=== PATIENT | female | born 1955 | race Caucasian/White ===

== ENCOUNTER 2020-09-03 20:53 | Inpatient (IN) | payer MEDICARE, OTHER ==
[2020-09-03 22:29] LABS: Albumin 2.8 g/dL (3.5-5.0); Calcium 8.3 mg/dL (8.4-10.2); Potassium 4.3 mmol/L (3.5-5.1); Total Bilirubin 0.6 mg/dL (0.2-1.3); Total Protein 5.6 g/dL (6.3-8.2)
[2020-09-03 23:24] LABS: Anisocytosis Slight; HCT 42.7 % (34.0-46.0); HGB 11.5 gm/dL (11.4-16.0); Hypochromasia Marked; MCH 22.9 pg (25.0-35.0); MCV 84.8 fL (80.0-100.0); Mean Platelet Volume 7.4; Platelet Count 205 k/uL (150-450); Poikilocytosis Slight; RBC 5.03 m/uL (3.80-5.40); RDW 16.9 % (11.5-15.5)
[2020-09-03 23:25] LABS: Appearance,Urine Cloudy (Clear); Bacteria,Urine Rare /hpf; Bilirubin,Urine Negative (Negative); Blood,Urine Negative (Negative); Color,Urine Yellow; Glucose,Urine (UA) Negative (Negative); Hyaline Casts,Urine 23 /lpf (0-2); Ketones,Urine Negative (Negative); Leukocyte Esterase,Urine Small (Negative); Mucus,Urine Rare /hpf; Nitrite,Urine Negative (Negative); Protein,Urine 1+ (Negative); RBC,Urine 2 /hpf (0-5); Specific Gravity,Urine 1.012 (1.001-1.035); Squamous Epithelial Cell,Urine 1 /hpf (0-4); Urobilinogen,Urine <2.0 mg/dL (<2.0); WBC,Urine 11 /hpf (0-5)
[2020-09-03 23:59] LABS: Band Neutrophils % 2 %; Eosinophils # (M) 0.06 k/uL (0-0.7); Lymphocytes # (M) 0.99 k/uL (1.0-4.8); Monocytes # (M) 0.31 k/uL (0-1.0); Neutrophils % (M) 78 %; Nucleated Red Blood Cells 1 /100 WBC (0-0); Total Cells Counted 200; WBC 6.2 k/uL (3.8-10.6)
[2020-09-04 00:02] LABS: Polychromasia Present
[2020-09-04 00:03] LABS: Large Platelets Present
[2020-09-04] MEDS ORDERED: NALOXONE 0.4 MG/ML 1 ML VIAL IV PRN (00:39)
[2020-09-04] MEDS ORDERED: FUROSEMIDE 10 MG/ML 4 ML VIAL IV STA (00:43)
--- NOTE | 2020-09-04 00:44 | ED ---
General Adult HPI - General Chief complaint: Recheck/Abnormal Lab/Rx Stated complaint: ATIF Time Seen by Provider: 09/03/20 21:10 Source: patient, EMS Mode of arrival: EMS Limitations: no limitations - History of Present Illness Initial comments: 64 year-old female patient presents to the emergency department for evaluation of generalized swelling. States that it has been worsening over the last three weeks. States that her right leg is swollen, her abdomen, and her arms. States that she cannot fit into her clothes anymore. Denies any significant shortness of breath. States she has had this in the past and they drained off "150lbs" of fluid. Patient states she does take lasix. Also reports generalized weakness, states that she is having trouble getting around her home because the swelling is so bad. Reports normal urination. Denies any chest pain. Patient denies any recent rash, fever, chills, cough, abdominal pain, nausea, vomiting, diarrhea, constipation, back pain, numbness, tingling, dizziness, weakness, hematuria, dysuria, urinary urgency, urinary frequency, headache, visual changes, or any other complaints. - Related Data Home Medications Medication Instructions Recorded Confirmed Ferrous Sulfate [Feosol] 325 mg PO DAILY 08/27/16 09/03/20 Morphine Sulfate [Ms Contin] 30 mg PO DAILY 08/27/16 09/03/20 Oxybutynin Chloride 5 mg PO TID 08/27/16 09/03/20 Warfarin [Coumadin] 2 mg PO HS 08/27/16 09/03/20 Albuterol Inhaler [Ventolin Hfa 1 puff INHALATION RT-Q4H PRN 09/03/20 09/03/20 Inhaler] Ammonium Lactate Cream [Lac-Hydrin 1 applic TOPICAL BID 09/03/20 09/03/20 12% Cream] Atorvastatin [Lipitor] 10 mg PO HS 09/03/20 09/03/20 Furosemide [Lasix] 40 mg PO DAILY 09/03/20 09/03/20 Insulin Aspart [NovoLOG Flexpen] 20 - 30 units SQ AC-TID 09/03/20 09/03/20 Insulin Detemir [Levemir Flextouch] 30 units SQ HS 09/03/20 09/03/20 Morphine Sulfate 15 mg PO HS 09/03/20 09/03/20 Nystatin 100,000Unit/gm Cream 1 applic TOPICAL BID 09/03/20 09/03/20 [Mycostatin Cream] Pantoprazole Sodium [Protonix] 40 mg PO DAILY 09/03/20 09/03/20 Triamcinolone 0.1% Cream [Kenalog 1 applicatio TOPICAL BID 09/03/20 09/03/20 0.1% Cream] Allergies Allergy/AdvReac Type Severity Reaction Status Date / Time cephalexin [From Keflex] Allergy Rash/Hives Verified 09/03/20 22:31 ciprofloxacin [From Cipro] Allergy Unknown Verified 09/03/20 22:31 Review of Systems ROS Statement: Those systems with pertinent positive or pertinent negative responses have been documented in the HPI. ROS Other: All systems not noted in ROS Statement are negative. 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, BLEEDING POLPS RESULTING IN ILEOSTOMY History of Any Multi-Drug Resistant Organisms: MRSA Date of last positivie culture/infection: 08/27/16 MDRO Source:: Coccyx Past Surgical History: Bowel Resection Additional Past Surgical History / Comment(s): 2010 AKA left, ileostomy 1967 Past Anesthesia/Blood Transfusion Reactions: No Reported Reaction Past Psychological History: No Psychological Hx Reported Smoking Status: Current every day smoker - Past Family History Mother Additional Family Medical History / Comment(s): ENLARGED HEART Father Family Medical History: Hypertension General Exam Limitations: no limitations General appearance: alert, in no apparent distress ENT exam: Present: normal exam, normal oropharynx, mucous membranes moist Respiratory exam: Present: normal lung sounds bilaterally. Absent: respiratory distress, wheezes, rales, rhonchi, stridor Cardiovascular Exam: Present: regular rate, normal rhythm, normal heart sounds. Absent: systolic murmur, diastolic murmur, rubs, gallop, clicks GI/Abdominal exam: Present: soft, normal bowel sounds. Absent: distended, tenderness, guarding, rebound, rigid Extremities exam: Present: normal inspection, full ROM, normal capillary refill, other (Absent left leg. Right leg swelling, thickened skin over the lower leg.). Absent: tenderness, pedal edema, joint swelling, calf tenderness Neurological exam: Present: alert, oriented X3, CN II-XII intact Psychiatric exam: Present: normal affect, normal mood Skin exam: Present: warm, dry, intact, normal color. Absent: rash Course Vital Signs 09/03/20 09/03/20 09/03/20 20:59 22:32 22:48 Temperature 98.1 F Pulse Rate 88 79 Respiratory 18 18 18 Rate Blood Pressure 111/61 97/62 O2 Sat by Pulse 88 L 99 Oximetry 09/03/20 23:09 Temperature Pulse Rate 80 Respiratory 18 Rate Blood Pressure 119/66 O2 Sat by Pulse 99 Oximetry EKG Findings - EKG Comments: EKG Findings:: EKG obtained at 0 shows normal sinus rhythm with right bundle branch block. Ventricular rate is 84, W[place] interval 198, QRS duration 152, QT 416, QTC 491. No evidence of ST elevation or depression. Medical Decision Making - Medical Decision Making 64 year-old year old female patient presents to the emergency department for evaluation of generalized swelling, difficulty with mobility due to the swelling. Denies significant shortness of breath. Physical examination does reveal non pitting edema. Lungs are clear. She did initially have low oxygen saturation. Labs reviewed and showed decreased renal function, patient states she has had this in the past. She will be admitted to the hospital for IV lasix and for evaluation for possible CHF. She is agreeable to this plan. Case discussed with my attending Dr. Whatley. - Lab Data Result diagrams: 09/03/20 22:07 09/03/20 22:07 Lab Results 09/03/20 09/03/20 09/03/20 Range/Units 22:07 22:07 22:07 WBC 6.2 (3.8-10.6) k/uL RBC 5.03 (3.80-5.40) m/uL Hgb 11.5 (11.4-16.0) gm/dL Hct 42.7 (34.0-46.0) % MCV 84.8 (80.0-100.0) fL MCH 22.9 L (25.0-35.0) pg MCHC 27.0 L (31.0-37.0) g/dL RDW 16.9 H (11.5-15.5) % Plt Count 205 (150-450) k/uL MPV 7.4 Neutrophils % Not Reportable Neutrophils % (Manual) 78 % Band Neuts % (Manual) 2 % Lymphocytes % Not Reportable Lymphocytes % (Manual) 16 % Monocytes % Not Reportable Monocytes % (Manual) 5 % Eosinophils % Not Reportable Eosinophils % (Manual) 1 % Basophils % Not Reportable Neutrophils # Not Reportable Neutrophils # (Manual) 4.90 (1.3-7.7) k/uL Lymphocytes # Not Reportable Lymphocytes # (Manual) 0.99 L (1.0-4.8) k/uL Monocytes # Not Reportable Monocytes # (Manual) 0.31 (0-1.0) k/uL Eosinophils # Not Reportable Eosinophils # (Manual) 0.06 (0-0.7) k/uL Basophils # Not Reportable Nucleated RBCs 1 H (0-0) /100 WBC Manual Slide Review Performed Large Platelets Present Polychromasia Present Hypochromasia Marked Poikilocytosis Slight Anisocytosis Slight Sodium 134 L (137-145) mmol/L Potassium 4.3 (3.5-5.1) mmol/L Chloride 103 (98-107) mmol/L Carbon Dioxide 23 (22-30) mmol/L Anion Gap 8 mmol/L BUN 22 H (7-17) mg/dL Creatinine 2.23 H (0.52-1.04) mg/dL Est GFR (CKD-EPI)AfAm 26 (>60 ml/min/1.73 sqM) Est GFR (CKD-EPI)NonAf 23 (>60 ml/min/1.73 sqM) Glucose 109 H (74-99) mg/dL Calcium 8.3 L (8.4-10.2) mg/dL Total Bilirubin 0.6 (0.2-1.3) mg/dL AST 37 H (14-36) U/L ALT 13 (4-34) U/L Alkaline Phosphatase 104 (38-126) U/L NT-Pro-B Natriuret Pep pg/mL Total Protein 5.6 L (6.3-8.2) g/dL Albumin 2.8 L (3.5-5.0) g/dL Urine Color Yellow Urine Appearance Cloudy H (Clear) Urine pH 5.0 (5.0-8.0) Ur Specific [place] 1.012 (1.001-1.035) Urine Protein 1+ H (Negative) Urine Glucose (UA) Negative (Negative) Urine Ketones Negative (Negative) Urine Blood Negative (Negative) Urine Nitrite Negative (Negative) Urine Bilirubin Negative (Negative) Urine Urobilinogen <2.0 (<2.0) mg/dL Ur Leukocyte Esterase Small H (Negative) Urine RBC 2 (0-5) /hpf Urine WBC 11 H (0-5) /hpf Ur Squamous Epith Cells 1 (0-4) /hpf Urine Bacteria Rare H (None) /hpf Hyaline Casts 23 H (0-2) /lpf Urine Mucus Rare H (None) /hpf 09/03/20 Range/Units 22:07 WBC (3.8-10.6) k/uL RBC (3.80-5.40) m/uL Hgb (11.4-16.0) gm/dL Hct (34.0-46.0) % MCV (80.0-100.0) fL MCH (25.0-35.0) pg MCHC (31.0-37.0) g/dL RDW (11.5-15.5) % Plt Count (150-450) k/uL MPV Neutrophils % Neutrophils % (Manual) % Band Neuts % (Manual) % Lymphocytes % Lymphocytes % (Manual) % Monocytes % Monocytes % (Manual) % Eosinophils % Eosinophils % (Manual) % Basophils % Neutrophils # Neutrophils # (Manual) (1.3-7.7) k/uL Lymphocytes # Lymphocytes # (Manual) (1.0-4.8) k/uL Monocytes # Monocytes # (Manual) (0-1.0) k/uL Eosinophils # Eosinophils # (Manual) (0-0.7) k/uL Basophils # Nucleated RBCs (0-0) /100 WBC Manual Slide Review Large Platelets Polychromasia Hypochromasia Poikilocytosis Anisocytosis Sodium (137-145) mmol/L Potassium (3.5-5.1) mmol/L Chloride (98-107) mmol/L Carbon Dioxide (22-30) mmol/L Anion Gap mmol/L BUN (7-17) mg/dL Creatinine (0.52-1.04) mg/dL Est GFR (CKD-EPI)AfAm (>60 ml/min/1.73 sqM) Est GFR (CKD-EPI)NonAf (>60 ml/min/1.73 sqM) Glucose (74-99) mg/dL Calcium (8.4-10.2) mg/dL Total Bilirubin (0.2-1.3) mg/dL AST (14-36) U/L ALT (4-34) U/L Alkaline Phosphatase (38-126) U/L NT-Pro-B Natriuret Pep 3650 pg/mL Total Protein (6.3-8.2) g/dL Albumin (3.5-5.0) g/dL Urine Color Urine Appearance (Clear) Urine pH (5.0-8.0) Ur Specific [place] (1.001-1.035) Urine Protein (Negative) Urine Glucose (UA) (Negative) Urine Ketones (Negative) Urine Blood (Negative) Urine Nitrite (Negative) Urine Bilirubin (Negative) Urine Urobilinogen (<2.0) mg/dL Ur Leukocyte Esterase (Negative) Urine RBC (0-5) /hpf Urine WBC (0-5) /hpf Ur Squamous Epith Cells (0-4) /hpf Urine Bacteria (None) /hpf Hyaline Casts (0-2) /lpf Urine Mucus (None) /hpf Disposition Clinical Impression: Generalized edema, Weakness Disposition: ADMITTED IP TO THIS [facility] Condition: Serious Referrals: Tariq Tang MD [Primary Care Provider] - 1-2 days Decision to Admit Reason: Admit from EC Decision Date: 09/04/20 Decision Time: 00:46
--- NOTE | 2020-09-04 01:53 | XR ---
EXAM: XR Chest, 1 View CLINICAL HISTORY: ITS.REASON XR Reason: low O2 sat; swelling TECHNIQUE: Frontal view of the chest. COMPARISON: No relevant prior studies available. FINDINGS: Lungs: Bilateral lung opacities. Pleural space: Trace pleural effusions not excluded. Heart: Enlarged cardiomediastinal silhouette. Mediastinum: See above. Bones/joints: Degenerative changes. IMPRESSION: 1. Bilateral lung opacities. Correlate clinically regarding infection or edema. 2. Enlarged cardiomediastinal silhouette.
[2020-09-04] MEDS ORDERED: ALBUTEROL NEBULIZED 2.5 MG/3 ML INHALATION PRN (06:31)
[2020-09-04 06:48] LABS: Glucose,Whole Blood 120 mg/dL (75-99)
[2020-09-04 08:50] LABS: INR 6.3 (<1.2)
[2020-09-04] MEDS: INSULIN ASPART (NovoLOG) 100 UNIT/ML VIAL SQ SCH ×4 (08:52→21:21)
[2020-09-04] MEDS ORDERED: FUROSEMIDE 10 MG/ML 4 ML VIAL IV SCH (09:00)
[2020-09-04] MEDS ORDERED: FUROSEMIDE 40 MG TAB PO SCH (09:00)
[2020-09-04] MEDS: TRIAMCINOLONE 0.1% CREAM 80 GM TUBE TOPICAL SCH ×2 (09:03→21:41)
[2020-09-04] MEDS: OXYBUTYNIN CHLORIDE 5 MG TAB PO SCH ×3 (09:04→21:20)
[2020-09-04] MEDS: NYSTATIN 100,000UNIT/GM CREAM 30 GM TUBE TOPICAL SCH ×2 (09:04→21:41)
[2020-09-04] MEDS: AMMONIUM LACTATE 12% CREAM 140 GM TUBE TOPICAL SCH ×2 (09:04→21:41)
[2020-09-04] MEDS: MORPHINE SULFATE ER 30 MG TABLET PO SCH (09:04)
[2020-09-04] MEDS: FERROUS SULFATE 325 MG TAB PO SCH (09:05)
[2020-09-04] MEDS: PANTOPRAZOLE 40 MG TABLET PO SCH (09:05)
[2020-09-04 11:39] LABS: Glucose,Whole Blood 234 mg/dL (75-99)
--- NOTE | 2020-09-04 14:28 | P.CRDCN ---
History of Present Illness History of present illness: HISTORY OF PRESENTING ILLNESS This is a pleasant 64-year-old female past medical history significant for Congestive Heart Failure, Type 2 Diabetes, COPD, Dyslipidemia, obstructive sleep apnea, chronic kidney disease, DVT (on coumadin). She currently does not follow with a currency counter. She used to follow with a currency counter, she states "years ago". We have been asked to see in consultation for congestive heart failure. Patient is seen and examined sitting up in bed. No acute distress. She states over the past 3 weeks she has been having increased generalized edema and some mild shortness of breath. States that she cannot fit into her clothes anymore. Associated symptoms include some mild shortness of breath. No recent echocardiogram. She states she has been at hospitals prior diagnosed with heart failure and renal failure. She states she has even been on emergent dialysis 2 times in the hospital. She does not remember having a cardiac catheterization. She states she also has been told she had an irregular rhythm before. She is a former smoker. She has history of non-compliance. She states she was recently at [facility]. Patient is not on telemetry to review. EKG reveals sinus rhythm, heart rate 84, right bundle-branch block. No prior EKG to compare Chest xray Bilateral lung opacities, enlarged cardiomediastinal silhouette. Current home cardiac medications include Coumadin 2 mg nightly, Lasix 40 mg daily, atorvastatin 10 mg nightly, potassium chloride 40 mEq daily. Patient was admitted and started On Lasix drip, statin, and her coumadin. She denies chest pain, palpitations, cough, abdominal pain, nausea, vomiting, dizziness, weakness, or lightheadedness. Denies orthopnea or PND. REVIEW OF SYSTEMS At the time of my exam: CONSTITUTIONAL: Denies fever or chills. CARDIOVASCULAR: +LE edema, Denies chest pain, shortness of breath, orthopnea, PND or palpitations. RESPIRATORY: Denies cough. GASTROINTESTINAL: Denies abdominal pain, diarrhea, constipation, nausea or vomiting. MUSCULOSKELETAL: Denies myalgias. NEUROLOGIC: Denies numbness, tingling, headacbe or weakness. ENDOCRINE: Denies fatigue, weight change, polydipsia or polyurina. GENITOURINARY: Denies burning, hematuria or urgency with micturation. HEMATOLOGIC: Denies history of anemia or bleeding. PHYSICAL EXAMINATION CONSTITUTIONAL: No apparent distress. HEENT: Head is normocephalic. Pupils are equal, round. Sclerae anicteric. Mucous membranes of the mouth are moist. Difficult to assess JVD. No carotid bruit. CHEST EXAMINATION: Lungs are diminished bases to auscultation. No chest wall tenderness is noted on palpation or with deep breathing. HEART EXAMINATION: Regular rate and rhythm. S1, S2 heard. No murmurs, gallops or rub. ABDOMEN: Soft, nontender. Positive bowel sounds. EXTREMITIES: Bilateral edema in upper and lower extremities, non-pitting SKIN: Lower extremity bilaterally redness NEUROLOGIC EXAMINATION: Patient is awake, alert and oriented x3. ASSESSMENT Acute on Chronic Heart Failure- Unspecified diastolic or systolic with no recent echocardiogram to review Type 2 Diabetes Acute on Chronic Kidney Disease- Patient has had history of being put on dialysis 2 times at outside hospitals Obstructive sleep Apnea DVT - on coumadin COPD Dyslipidemia PLAN -Will obtain old records from [facility] -Will Obtain 2D echocardiogram -Monitor patient on telemetry -Recommend Nephrology consult for acute on chronic kidney disease and IV diuresis recommendations -IV diuresis ordered per primary -Continue statin and coumadin -Heart Healthy Diet, I/Os, Daily Weights -Further recommendations to follow Nurse Practitioner note has been reviewed, I agree with a documented findings and plan of care. Patient was seen and examined. 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, BLEEDING POLPS RESULTING IN ILEOSTOMY History of Any Multi-Drug Resistant Organisms: MRSA Date of last positivie culture/infection: 08/27/16 MDRO Source:: Coccyx Past Surgical History: Bowel Resection Additional Past Surgical History / Comment(s): 2010 AKA left, ileostomy 1967 Past Anesthesia/Blood Transfusion Reactions: No Reported Reaction Past Psychological History: No Psychological Hx Reported Smoking Status: Current every day smoker Past Alcohol Use History: None Reported Past Drug Use History: None Reported - Past Family History Mother Additional Family Medical History / Comment(s): ENLARGED HEART Father Family Medical History: Hypertension Medications and Allergies Home Medications Medication Instructions Recorded Confirmed Type Ferrous Sulfate [Feosol] 325 mg PO DAILY 08/27/16 09/03/20 History Morphine Sulfate [Ms Contin] 30 mg PO DAILY 08/27/16 09/03/20 History Oxybutynin Chloride 5 mg PO TID 08/27/16 09/03/20 History Warfarin [Coumadin] 2 mg PO HS 08/27/16 09/03/20 History Albuterol Inhaler [Ventolin Hfa 1 puff INHALATION RT-Q4H PRN 09/03/20 09/03/20 History Inhaler] Ammonium Lactate Cream [Lac-Hydrin 1 applic TOPICAL BID 09/03/20 09/03/20 History 12% Cream] Atorvastatin [Lipitor] 10 mg PO HS 09/03/20 09/03/20 History Furosemide [Lasix] 40 mg PO DAILY 09/03/20 09/03/20 History Insulin Aspart [NovoLOG Flexpen] 20 - 30 units SQ AC-TID 09/03/20 09/03/20 History Insulin Detemir [Levemir Flextouch] 30 units SQ HS 09/03/20 09/03/20 History Morphine Sulfate 15 mg PO HS 09/03/20 09/03/20 History Nystatin 100,000Unit/gm Cream 1 applic TOPICAL BID 09/03/20 09/03/20 History [Mycostatin Cream] Pantoprazole Sodium [Protonix] 40 mg PO DAILY 09/03/20 09/03/20 History Triamcinolone 0.1% Cream [Kenalog 1 applicatio TOPICAL BID 09/03/20 09/03/20 History 0.1% Cream] Cyclobenzaprine [Flexeril] 10 mg PO TID PRN 09/04/20 09/04/20 History HYDROcodone/APAP 10-325MG [[place] 1 tab PO Q4HR PRN 09/04/20 09/04/20 History 10-325] Potassium Chloride [Klor-Con 20] 40 meq PO DAILY 09/04/20 09/04/20 History Allergies Allergy/AdvReac Type Severity Reaction Status Date / Time cephalexin [From Keflex] Allergy Rash/Hives Verified 09/03/20 22:31 ciprofloxacin [From Cipro] Allergy Unknown Verified 09/03/20 22:31 Physical Exam Vitals: Vital Signs Temp Pulse Pulse Resp BP BP Pulse Ox 09/04/20 13:53 97.5 F L 82 18 89/57 92 L 09/04/20 13:22 79 92/56 09/04/20 09:06 80 18 09/04/20 07:28 97.6 F 80 18 90/60 96 09/04/20 04:32 82 15 09/04/20 04:31 97.7 F 82 15 102/70 90 L 09/03/20 23:09 80 18 119/66 99 09/03/20 22:48 18 09/03/20 22:32 79 18 97/62 99 09/03/20 20:59 98.1 F 88 18 111/61 88 L Intake and Output 09/03/20 09/04/20 09/04/20 22:59 06:59 14:59 Output Total 150 100 Balance -150 -100 Output: Urine 150 Stool 100 Other: Weight 138.799 kg 136 kg Results 09/03/20 22:07 09/03/20 22:07 Cardiac Enzymes 09/03/20 Range/Units 22:07 AST 37 H (14-36) U/L Coagulation 09/04/20 Range/Units 07:43 PT 61.0 H (9.0-12.0) sec CBC 09/03/20 Range/Units 22:07 WBC 6.2 (3.8-10.6) k/uL RBC 5.03 (3.80-5.40) m/uL Hgb 11.5 (11.4-16.0) gm/dL Hct 42.7 (34.0-46.0) % Plt Count 205 (150-450) k/uL Comprehensive Metabolic Panel 09/03/20 Range/Units 22:07 Sodium 134 L (137-145) mmol/L Potassium 4.3 (3.5-5.1) mmol/L Chloride 103 (98-107) mmol/L Carbon Dioxide 23 (22-30) mmol/L BUN 22 H (7-17) mg/dL Creatinine 2.23 H (0.52-1.04) mg/dL Glucose 109 H (74-99) mg/dL Calcium 8.3 L (8.4-10.2) mg/dL AST 37 H (14-36) U/L ALT 13 (4-34) U/L Alkaline Phosphatase 104 (38-126) U/L Total Protein 5.6 L (6.3-8.2) g/dL Albumin 2.8 L (3.5-5.0) g/dL Current Medications Generic Name Dose Route Start Last Admin Trade Name Freq PRN Reason Stop Dose Admin Albuterol Sulfate 2.5 mg 09/04/20 06:31 Albuterol Nebulized 2.5 Mg/3 Ml INHALATION RT-Q4H PRN Shortness Of Breath Albuterol/Ipratropium 3 ml 09/04/20 16:00 Ipratropium-Albuterol 3 Ml Neb INHALATION RT-QID [facility] Atorvastatin Calcium 10 mg 09/04/20 21:00 Atorvastatin 10 Mg Tab PO HS LAWSON Budesonide 1 mg 09/04/20 12:15 Budesonide 1 Mg/2 Ml Nebu INHALATION RT-BID [facility] Ferrous Sulfate 325 mg 09/04/20 09:00 09/04/20 09:05 Ferrous Sulfate 325 Mg Tab PO 325 mg DAILY [facility] Administration Formoterol Fumarate 20 mcg 09/04/20 12:15 Formoterol Fumarate 20 Mcg/2 Ml Nebu INHALATION RT-BID [facility] Furosemide 100 mg/ Sodium 100 mls @ 10 mls/hr 09/04/20 12:30 Chloride IV .Q10H [facility] 10 MG/HR Insulin Aspart 0 unit 09/04/20 07:30 09/04/20 11:50 Insulin Aspart (Novolog) 100 Unit/Ml Vial SQ 5 unit ACHS [facility] Administration Protocol Insulin Detemir 30 unit 09/04/20 21:00 Insulin Detemir (Levemir) 100 Unit/Ml Syr SQ HS [facility] Lactic Acid 1 applic 09/04/20 09:00 09/04/20 09:04 Ammonium Lactate 12% Cream 140 Gm Tube TOPICAL 1 applic BID [facility] Administration Miscellaneous Information 0 each 09/04/20 06:56 Warfarin Per Pharmacy MISCELLANE DIRECTED PRN INR Morphine Sulfate 15 mg 09/04/20 21:00 Morphine Sulfate Ir 15 Mg Tablet PO HS [facility] Morphine Sulfate 30 mg 09/04/20 09:00 09/04/20 09:04 Morphine Sulfate Er 30 Mg Tablet PO 30 mg DAILY [facility] Administration Protocol Naloxone HCl 0.2 mg 09/04/20 00:39 Naloxone 0.4 Mg/Ml 1 Ml Vial IV Q2M PRN Opioid Reversal Nystatin 1 applic 09/04/20 09:00 09/04/20 09:04 Nystatin 100,000unit/Gm Cream 30 Gm Tube TOPICAL 1 applic BID [facility] Administration Oxybutynin Chloride 5 mg 09/04/20 09:00 09/04/20 09:04 Oxybutynin Chloride 5 Mg Tab PO 5 mg TID [facility] Administration Pantoprazole Sodium 40 mg 09/04/20 09:00 09/04/20 09:05 Pantoprazole 40 Mg Tablet PO 40 mg DAILY [facility] Administration Triamcinolone Acetonide 1 applic 09/04/20 09:00 09/04/20 09:03 Triamcinolone 0.1% Cream 80 Gm Tube TOPICAL 1 applic BID [facility] Administration Warfarin Sodium 0 mg 09/04/20 18:00 Warfarin 0.5 Mg Tab PO 09/04/20 18:01 ONCE ONE Intake and Output 09/03/20 09/04/20 09/04/20 22:59 06:59 14:59 Output Total 150 100 Balance -150 -100 Output: Urine 150 Stool 100 Other: Weight 138.799 kg 136 kg 09/03/20 22:07 09/03/20 22:07
[2020-09-04] MEDS: FUROSEMIDE 100 MG in SODIUM CHLORIDE 0.9% 90 ML IV SCH (14:33)
[2020-09-04] MEDS: FORMOTEROL FUMARATE 20 MCG/2 ML NEBU INHALATION SCH ×2 (15:15→19:25)
[2020-09-04] MEDS: BUDESONIDE 1 MG/2 ML NEBU INHALATION SCH ×2 (15:15→19:25)
[2020-09-04] MEDS: IPRATROPIUM-ALBUTEROL 3 ML NEB INHALATION SCH ×2 (15:32→19:25)
[2020-09-04 16:29] LABS: Glucose,Whole Blood 107 mg/dL (75-99)
[2020-09-04] MEDS ORDERED: WARFARIN 0.5 MG TAB PO ONE (18:00)
--- NOTE | 2020-09-04 20:51 | P.HPIM ---
History of Present Illness H&P Date: 09/04/20 Chief Complaint: Retaining water History of presenting complaint: This is a pleasant 63-year-old patient follows Dr. Tang. 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 Patient long-standing smoker. Patient presents with increasing swelling in the abdomen lower extremity. He has she has been short of breath. Also wheezing. Mild cough. Decrease appetite. Tired rundown. 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 Does use a wheelchair. smoking a pack a day for over 50 years. No alcohol. Physical examination: VITAL SIGNS: 98.1, 88, 18, 111/61, 88% on room air GENERAL: BMI 51.4, reclining in bed, short of breath. EYES: Pupils equal. Conjunctiva normal. HEENT: External appearance of nose and ears normal, oral cavity grossly normal. NECK: Short and thick, JVD unable to evaluate masses not palpable. HEART: First and second heart sounds are normal; edema present. LUNGS: Respiratory rate increased, accessory muscle working, not able to speak in full sentences, brisk breath sound along expiration wheezing. ABDOMEN: Soft, nontender, liver spleen not palpable, no masses palpable. PSYCH: [Alert and oriented x3; mood and affect anxious EXTREMITIES: Left above-knee amputation. NEUROLOGICAL: Cranial nerves grossly intact; no facial asymmetry, power and se nsation grossly intact. LYMPHATICS: No lymph nodes palpable in the axilla and neck INVESTIGATIONS, reviewed in the clinical context: WBC 6.2 hemoglobin 11.5 platelets 205 INR 6.3 potassium 4.3 bun 22 creatinine 2.23 Coronavirus [PCF]-not detected EKG tracing personally reviewed by me-normal sinus rhythm, right bundle branch block, some T-wave changes Chest x-ray film personally reviewed by me-infiltrates and venous prominence Assessment and plan: -Acute congestive heart failure exacerbation, EF not known Patient started on Lasix drip. Strict I's and O's. Follow electrolytes. 2-D echo ordered -Possible pneumonia, suspect gram-negative organism Start IV ceftriaxone -Acute COPD exacerbation in a current smoker *DuoNeb, inhaled bronchodilators, inhaled long-acting beta agonist, IV Solu- Medrol -Chronic DVT, chronically on Coumadin Follow INR as per pharmacy -Coumadin toxicity with no bleeding All Coumadin for now and follow with pharmacy to dose -Hyperlipidemia Continue Lipitor -Primary osteoarthritis Use pain control as needed -Chronic pain Continue with MS Contin Patient started on bronchodilators, steroids, IV ceftriaxone, oxygen supplementation. Care was discussed with the patient. Strict I's and O's. 2-D echocardiogram. IV Lasix. Drip. Given the complexity and severity of patient's condition expect the patient to be in the hospital at least for 2 overnights Smoke cessation counseling: This was done with the patient. Nicotine patch is being given. More than 3 minutes was spent for this 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, BLEEDING POLPS RESULTING IN ILEOSTOMY History of Any Multi-Drug Resistant Organisms: MRSA Date of last positivie culture/infection: 08/27/16 MDRO Source:: Coccyx Past Surgical History: Bowel Resection Additional Past Surgical History / Comment(s): 2010 AKA left, ileostomy 1966 Past Anesthesia/Blood Transfusion Reactions: No Reported Reaction Past Psychological History: No Psychological Hx Reported Smoking Status: Current every day smoker Past Alcohol Use History: None Reported Past Drug Use History: None Reported - Past Family History Mother Additional Family Medical History / Comment(s): ENLARGED HEART Father Family Medical History: Hypertension Medications and Allergies Home Medications Medication Instructions Recorded Confirmed Type Ferrous Sulfate [Feosol] 325 mg PO DAILY 08/27/16 09/03/20 History Morphine Sulfate [Ms Contin] 30 mg PO DAILY 08/27/16 09/03/20 History Oxybutynin Chloride 5 mg PO TID 08/27/16 09/03/20 History Warfarin [Coumadin] 2 mg PO HS 08/27/16 09/03/20 History Albuterol Inhaler [Ventolin Hfa 1 puff INHALATION RT-Q4H PRN 09/03/20 09/03/20 History Inhaler] Ammonium Lactate Cream [Lac-Hydrin 1 applic TOPICAL BID 09/03/20 09/03/20 History 12% Cream] Atorvastatin [Lipitor] 10 mg PO HS 09/03/20 09/03/20 History Furosemide [Lasix] 40 mg PO DAILY 09/03/20 09/03/20 History Insulin Aspart [NovoLOG Flexpen] 20 - 30 units SQ AC-TID 09/03/20 09/03/20 History Insulin Detemir [Levemir Flextouch] 30 units SQ HS 09/03/20 09/03/20 History Morphine Sulfate 15 mg PO HS 09/03/20 09/03/20 History Nystatin 100,000Unit/gm Cream 1 applic TOPICAL BID 09/03/20 09/03/20 History [Mycostatin Cream] Pantoprazole Sodium [Protonix] 40 mg PO DAILY 09/03/20 09/03/20 History Triamcinolone 0.1% Cream [Kenalog 1 applicatio TOPICAL BID 09/03/20 09/03/20 History 0.1% Cream] Cyclobenzaprine [Flexeril] 10 mg PO TID PRN 09/04/20 09/04/20 History HYDROcodone/APAP 10-325MG [[place] 1 tab PO Q4HR PRN 09/04/20 09/04/20 History 10-325] Potassium Chloride [Klor-Con 20] 40 meq PO DAILY 09/04/20 09/04/20 History Allergies Allergy/AdvReac Type Severity Reaction Status Date / Time cephalexin [From Keflex] Allergy Rash/Hives Verified 09/03/20 22:31 ciprofloxacin [From Cipro] Allergy Unknown Verified 09/03/20 22:31 Physical Exam Vitals: Vital Signs Temp Pulse Pulse Resp BP BP Pulse Ox 09/04/20 09:06 80 18 09/04/20 07:28 97.6 F 80 18 90/60 96 09/04/20 04:32 82 15 09/04/20 04:31 97.7 F 82 15 102/70 90 L 09/03/20 23:09 80 18 119/66 99 09/03/20 22:48 18 09/03/20 22:32 79 18 97/62 99 09/03/20 20:59 98.1 F 88 18 111/61 88 L Intake and Output 09/03/20 09/04/20 09/04/20 22:59 06:59 14:59 Output Total 150 Balance -150 Output: Urine 150 Other: Weight 138.799 kg 136 kg Results CBC & Chem 7: 09/03/20 22:07 09/03/20 22:07 Labs: Abnormal Lab Results - Last 24 Hours (Table) 09/03/20 09/03/20 09/03/20 Range/Units 22:07 22:07 22:07 MCH 22.9 L (25.0-35.0) pg MCHC 27.0 L (31.0-37.0) g/dL RDW 16.9 H (11.5-15.5) % Lymphocytes # (Manual) 0.99 L (1.0-4.8) k/uL Nucleated RBCs 1 H (0-0) /100 WBC PT (9.0-12.0) sec INR (<1.2) Sodium 134 L (137-145) mmol/L BUN 22 H (7-17) mg/dL Creatinine 2.23 H (0.52-1.04) mg/dL Glucose 109 H (74-99) mg/dL POC Glucose (mg/dL) (75-99) mg/dL Calcium 8.3 L (8.4-10.2) mg/dL AST 37 H (14-36) U/L Total Protein 5.6 L (6.3-8.2) g/dL Albumin 2.8 L (3.5-5.0) g/dL Urine Appearance Cloudy H (Clear) Urine Protein 1+ H (Negative) Ur Leukocyte Esterase Small H (Negative) Urine WBC 11 H (0-5) /hpf Urine Bacteria Rare H (None) /hpf Hyaline Casts 23 H (0-2) /lpf Urine Mucus Rare H (None) /hpf 09/04/20 09/04/20 Range/Units 06:46 07:43 MCH (25.0-35.0) pg MCHC (31.0-37.0) g/dL RDW (11.5-15.5) % Lymphocytes # (Manual) (1.0-4.8) k/uL Nucleated RBCs (0-0) /100 WBC PT 61.0 H (9.0-12.0) sec INR 6.3 H* (<1.2) Sodium (137-145) mmol/L BUN (7-17) mg/dL Creatinine (0.52-1.04) mg/dL Glucose (74-99) mg/dL POC Glucose (mg/dL) 120 H (75-99) mg/dL Calcium (8.4-10.2) mg/dL AST (14-36) U/L Total Protein (6.3-8.2) g/dL Albumin (3.5-5.0) g/dL Urine Appearance (Clear) Urine Protein (Negative) Ur Leukocyte Esterase (Negative) Urine WBC (0-5) /hpf Urine Bacteria (None) /hpf Hyaline Casts (0-2) /lpf Urine Mucus (None) /hpf Microbiology - Last 24 Hours (Table) 09/03/20 22:07 Urine Culture - Preliminary Urine,Voided Thrombosis Risk Factor Assmnt - Choose All That Apply Any of the Below Risk Factors Present?: Yes Each Factor Represents 1 point: Abnormal pulmonary function (COPD) Other Risk Factors: Yes Each Risk Factor Represents 2 Points: Age 61-74 years Each Risk Factor Represents 3 Points: History of DVT/PE Thrombosis Risk Factor Assessment Total Risk Factor Score: 6 Thrombosis Risk Factor Assessment Level: High Risk
[2020-09-04 20:56] LABS: Glucose,Whole Blood 127 mg/dL (75-99)
[2020-09-04] MEDS ORDERED: WARFARIN 2 MG TAB PO SCH (21:00)
[2020-09-04] MEDS: methylPREDNISolone SOD SUCCI 40 MG/ML 1 ML VIAL IV SCH (21:20)
[2020-09-04] MEDS: ATORVASTATIN 10 MG TAB PO SCH (21:20)
[2020-09-04] MEDS: MORPHINE SULFATE IR 15 MG TABLET PO SCH (21:20)
[2020-09-04] MEDS: INSULIN DETEMIR (LEVEMIR) 100 UNIT/ML SYR SQ SCH (21:21)
[2020-09-05] MEDS: methylPREDNISolone SOD SUCCI 40 MG/ML 1 ML VIAL IV SCH ×4 (00:07→23:47)
[2020-09-05] MEDS: FUROSEMIDE 100 MG in SODIUM CHLORIDE 0.9% 90 ML IV SCH ×3 (00:07→17:41)
[2020-09-05 06:31] LABS: Prothrombin Time 57.7 sec (9.0-12.0)
[2020-09-05 07:09] LABS: African American GFR (CKD) 34 (>60 ml/min/1.73 sqM); Anion Gap 7 mmol/L; Blood Urea Nitrogen 23 mg/dL (7-17); Calcium 7.8 mg/dL (8.4-10.2); Carbon Dioxide 23 mmol/L (22-30); Chloride 105 mmol/L (98-107); Glucose 195 mg/dL (74-99); Non-African American GFR(CKD) 29 (>60 ml/min/1.73 sqM); Potassium 4.2 mmol/L (3.5-5.1); Sodium 135 mmol/L (137-145)
[2020-09-05 07:16] LABS: Glucose,Whole Blood 186 mg/dL (75-99)
[2020-09-05] MEDS ORDERED: INSULIN ASPART (NovoLOG) 100 UNIT/ML VIAL SQ SCH (07:30)
[2020-09-05] MEDS: BUDESONIDE 1 MG/2 ML NEBU INHALATION SCH ×2 (08:19→21:43)
[2020-09-05] MEDS: FORMOTEROL FUMARATE 20 MCG/2 ML NEBU INHALATION SCH ×2 (08:19→21:44)
[2020-09-05] MEDS: IPRATROPIUM-ALBUTEROL 3 ML NEB INHALATION SCH ×4 (08:19→21:43)
[2020-09-05] MEDS: INSULIN ASPART (NovoLOG) 100 UNIT/ML VIAL SQ SCH ×4 (08:30→22:22)
[2020-09-05] MEDS: OXYBUTYNIN CHLORIDE 5 MG TAB PO SCH ×3 (08:31→22:20)
[2020-09-05] MEDS: FERROUS SULFATE 325 MG TAB PO SCH (08:31)
[2020-09-05] MEDS: MORPHINE SULFATE ER 30 MG TABLET PO SCH (08:31)
[2020-09-05] MEDS: AMMONIUM LACTATE 12% CREAM 140 GM TUBE TOPICAL SCH ×2 (08:32→22:23)
[2020-09-05] MEDS: NYSTATIN 100,000UNIT/GM CREAM 30 GM TUBE TOPICAL SCH ×2 (08:32→22:23)
[2020-09-05] MEDS: TRIAMCINOLONE 0.1% CREAM 80 GM TUBE TOPICAL SCH ×2 (08:32→22:23)
[2020-09-05] MEDS: PANTOPRAZOLE 40 MG TABLET PO SCH (08:32)
[2020-09-05 11:57] LABS: Glucose,Whole Blood 216 mg/dL (75-99)
--- NOTE | 2020-09-05 14:48 | P.PN ---
Subjective HISTORY OF PRESENTING ILLNESS This is a pleasant 64-year-old female past medical history significant for Congestive Heart Failure, Type 2 Diabetes, COPD, Dyslipidemia, obstructive sleep apnea, chronic kidney disease, Atrial fibrillation, DVT (on coumadin). She currently does not follow with a marketing communications specialist. She used to follow with a marketing communications specialist, she states "years ago". We have been asked to see in consultation for congestive heart failure. Patient is seen and examined sitting up in bed. No acute distress. She states over the past 3 weeks she has been having increased generalized edema and some mild shortness of breath. States that she cannot fit into her clothes anymore. Associated symptoms include some mild shortness of breath. No recent echocardiogram. She states she has been at hospitals prior diagnosed with heart failure and renal failure. She states she has even been on emergent dialysis 2 times in the hospital. She does not jai mber having a cardiac catheterization. She states she also has been told she had an irregular rhythm before. She is a former smoker. She has history of non- compliance. She states she was recently at [facility]. Patient is not on telemetry to review. EKG reveals sinus rhythm, heart rate 84, right bundle-branch block. No prior EKG to compare Chest xray Bilateral lung opacities, enlarged cardiomediastinal silhouette. Current home cardiac medications include Coumadin 2 mg nightly, Lasix 40 mg daily, atorvastatin 10 mg nightly, potassium chloride 40 mEq daily. Patient was admitted and started On Lasix drip, statin, and her coumadin. She denies chest pain, palpitations, cough, abdominal pain, nausea, vomiting, dizziness, weakness, or lightheadedness. Denies orthopnea or PND. 09/05/2020: Patient seen and examined at bedside, no acute distress. Sitting up in the bed, comfortable. BP 111/69 HR 81, afebile maintaining oxygen requirements on 2L nasal cannula. Telemetry reviewed, patient in sinus mechanism HR 70s. Patient with 1.4L urine output over 24 hours. Weight decrease 136kg to 134kg. [facility] records obtained, patient does have a history of atrial fibrillation (anticoagulation with coumadin)- was previous on amiodarone but this was discontinued In 07/2016- Patient had a normal LV function PHYSICAL EXAMINATION CONSTITUTIONAL: No apparent distress. HEENT: Head is normocephalic. Pupils are equal, round. Sclerae anicteric. Mucous membranes of the mouth are moist. Difficult to assess JVD. No carotid bruit. CHEST EXAMINATION: Lungs are diminished bases to auscultation. No chest wall tenderness is noted on palpation or with deep breathing. HEART EXAMINATION: Regular rate and rhythm. S1, S2 heard. No murmurs, gallops or rub. ABDOMEN: Soft, nontender. Positive bowel sounds. EXTREMITIES: Bilateral edema in upper and lower extremities, non-pitting SKIN: Lower extremity bilaterally redness NEUROLOGIC EXAMINATION: Patient is awake, alert and oriented x3. ASSESSMENT Acute on Chronic Heart Failure- Unspecified diastolic or systolic. Most likely diastolic with patient having normal LV systolic function 07/2016. Supratherapeutic INR Type 2 Diabetes Acute on Chronic Kidney Disease- Patient has had history of being put on dialysis 2 times at outside hospitals Obstructive sleep Apnea DVT - on coumadin COPD Dyslipidemia PLAN -Waiting for 2D echocardiogram read -Monitor patient on telemetry -Recommend Nephrology consult for acute on chronic kidney disease and IV diuresis recommendations -IV diuresis ordered per primary -Recommend increasing patients home Lasix on discharge -Continue statin -Holding coumadin due to supratherapeutic INR -Heart Healthy Diet, I/Os, Daily Weights -Further recommendations to follow Nurse Practitioner note has been reviewed, I agree with a documented findings and plan of care. Patient was seen and examined. Objective - Vital Signs Vital signs: Vital Signs Temp 98.3 F 09/05/20 08:00 Pulse 78 09/05/20 12:10 Resp 18 09/05/20 08:00 BP 111/69 09/05/20 08:00 Pulse Ox 90 L 09/05/20 11:05 Intake & Output 09/04/20 09/05/20 09/05/20 18:59 06:59 18:59 Intake Total 95.667 100 Output Total 100 1350 Balance -100 -1254.333 100 Weight 140 kg 134.5 kg Intake: Intake, IV Titration 95.667 100 Amount Furosemide 100 mg In 95.667 100 Sodium Chloride 0.9% 90 ml @ 10 MG/HR 10 mls/hr IV .Q10H [facility] Rx#: [id number] Output: Urine 1200 Stool 100 150 Other: Voiding Method Diaper External Catheter - Labs CBC & Chem 7: 09/03/20 22:07 09/05/20 05:51 Labs: Abnormal Lab Results - Last 24 Hours (Table) 09/04/20 09/04/20 09/05/20 Range/Units 16:28 20:55 05:51 PT (9.0-12.0) sec INR (<1.2) Sodium (137-145) mmol/L BUN (7-17) mg/dL Creatinine (0.52-1.04) mg/dL Glucose (74-99) mg/dL POC Glucose (mg/dL) 107 H 127 H (75-99) mg/dL Calcium (8.4-10.2) mg/dL Procalcitonin 0.11 H (0.02-0.09) ng/mL 09/05/20 09/05/20 09/05/20 Range/Units 05:51 05:51 07:12 PT 57.7 H (9.0-12.0) sec INR 6.0 H* (<1.2) Sodium 135 L (137-145) mmol/L BUN 23 H (7-17) mg/dL Creatinine 1.81 H (0.52-1.04) mg/dL Glucose 195 H (74-99) mg/dL POC Glucose (mg/dL) 186 H (75-99) mg/dL Calcium 7.8 L (8.4-10.2) mg/dL Procalcitonin (0.02-0.09) ng/mL 09/05/20 Range/Units 11:55 PT (9.0-12.0) sec INR (<1.2) Sodium (137-145) mmol/L BUN (7-17) mg/dL Creatinine (0.52-1.04) mg/dL Glucose (74-99) mg/dL POC Glucose (mg/dL) 216 H (75-99) mg/dL Calcium (8.4-10.2) mg/dL Procalcitonin (0.02-0.09) ng/mL Microbiology - Last 24 Hours (Table) 09/03/20 22:07 Urine Culture - Preliminary Urine,Voided Gram Neg Bacilli
--- NOTE | 2020-09-05 15:41 | ECHOF ---
Referral Reason:assess LV function MEASUREMENTS -------- HEIGHT: 165.1 cm WEIGHT: 135.6 kg BP: 90/60 IVSd: 1.5 cm (0.6 - 1.1) LVIDd: 3.5 cm (3.9 - 5.3) LVPWd: 1.4 cm (0.6 - 1.1) EDV(Teich): 52 ml IVSs: 1.8 cm LVIDs: 2.1 cm LVPWs: 1.3 cm %IVS Thck: 15 % ESV(Teich): 15 ml EF(Teich): 72 % %FS: 40 % SV(Teich): 38 ml RVIDd: 4.3 cm (< 3.3) RA Diam: 4.7 cm Ao Diam: 3.2 cm (2.0 - 3.7) AV Cusp: 1.6 cm (1.5 - 2.6) MV E Regan: 0.86 m/s MV DecT: 195 ms MV Dec [place]: 4.4 m/s MV A Regan: 0.95 m/s MV E/A Ratio: 0.91 MV PHT: 57 ms AV Vmax: 1.68 m/s AV maxP.25 mmHg TR Vmax: 3.12 m/s TR maxP.94 mmHg RAP: 5.00 mmHg RVSP: 43.94 mmHg FINDINGS -------- This was a technically difficult study with suboptimal views. The left ventricular size is normal. There is moderate concentric left ventricular hypertrophy. O verall left ventricular systolic function is normal with, an EF between 55 - 60 %. The right ventricle is moderately enlarged. The left atrium was not well visualized. The right atrium is mildly enlarged. 5.0mg of Lumason was utilized for enhancement of images Interatrial and interventricular septum intact. The aortic valve is trileaflet and appears structurally normal. There is mild aortic valve sclerosi s. There is no evidence of aortic stenosis. No mitral regurgitation. Moderate tricuspid regurgitation present. There is moderate pulmonary hypertension. The right doug tricular systolic pressure, as measured by Doppler, is 43.94mmHg. There is no pulmonic regurgitation present. The aortic root size is normal. IVC Not well visulized. There is no pericardial effusion. CONCLUSIONS -------- 1. The left ventricular size is normal. 2. There is moderate concentric left ventricular hypertrophy. 3. Overall left ventricular systolic function is normal with, an EF between 55 - 60 %. 4. The right ventricle is moderately enlarged. 5. The right atrium is mildly enlarged. 6. There is mild aortic valve sclerosis. 7. Moderate tricuspid regurgitation present. 8. There is moderate pulmonary hypertension. 9. The right ventricular systolic pressure, as measured by Doppler, is 43.94mmHg. IN [employer] MANAGER: Romana Anaya RDCS
--- NOTE | 2020-09-05 16:30 | P.PN ---
Progress Note - Text Progress Note Date: 09/05/20 Chief Complaint: Retaining water History of presenting complaint: This is a pleasant 63-year-old patient follows Dr. Tang. 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 Patient long-standing smoker. Patient presents with increasing swelling in the abdomen lower extremity. He has she has been short of breath. Also wheezing. Mild cough. Decrease appetite. Tired rundown. Admitted with acute CHF exacerbation-put on IV Lasix drip, pneumonia-put on IV ceftriaxone, acute COPD exacerbation-placed on bronchodilators steroids. Today: Laying in bed. Shortness of breath edema present. 50% of breakfast eaten. Edema present. Review of systems: Was done for constitutional, cardiovascular, GI, pulmonary. relevant finding as above Active Medications Albuterol Sulfate (Albuterol Nebulized 2.5 Mg/3 Ml) 2.5 mg INHALATION RT-Q4H PRN PRN Reason: Shortness Of Breath Albuterol/Ipratropium (Ipratropium-Albuterol 3 Ml Neb) 3 ml INHALATION RT-QID [facility] Last Admin: 09/05/20 11:59 Dose: 3 ml Documented by: Atorvastatin Calcium (Atorvastatin 10 Mg Tab) 10 mg PO HS [facility] Last Admin: 09/04/20 21:20 Dose: 10 mg Documented by: Budesonide (Budesonide 1 Mg/2 Ml Nebu) 1 mg INHALATION RT-BID [facility] Last Admin: 09/05/20 08:19 Dose: Not Given Documented by: Ferrous Sulfate (Ferrous Sulfate 325 Mg Tab) 325 mg PO DAILY [facility] Last Admin: 09/05/20 08:31 Dose: 325 mg Documented by: Formoterol Fumarate (Formoterol Fumarate 20 Mcg/2 Ml Nebu) 20 mcg INHALATION RT-BID [facility] Last Admin: 09/05/20 08:19 Dose: Not Given Documented by: Furosemide 100 mg/ Sodium (Chloride) 100 mls @ 10 mls/hr IV .Q10H [facility] Last Admin: 09/05/20 11:19 Dose: 10 mg/hr, 10 mls/hr Documented by: Ceftriaxone Sodium 1 gm/ (Sodium Chloride) 50 mls @ 100 mls/hr IVPB Q12HR [facility] Last Admin: 09/05/20 08:31 Dose: 100 mls/hr Documented by: Insulin Aspart (Insulin Aspart (Novolog) 100 Unit/Ml Vial) 0 unit SQ [facility]; Protocol Last Admin: 09/05/20 11:58 Dose: 4 unit Documented by: Insulin Detemir (Insulin Detemir (Levemir) 100 Unit/Ml Syr) 30 unit SQ [facility] Last Admin: 09/04/20 21:21 Dose: 30 unit Documented by: Lactic Acid (Ammonium Lactate 12% Cream 140 Gm Tube) 1 applic TOPICAL BID [facility] Last Admin: 09/05/20 08:32 Dose: 1 applic Documented by: Methylprednisolone Sodium Succinate (Methylprednisolone Sod Succi 40 Mg/Ml 1 Ml Vial) 40 mg IV Q8HR [facility] Last Admin: 09/05/20 15:59 Dose: 40 mg Documented by: Miscellaneous Information (Warfarin Per Pharmacy) 0 each MISCELLANE DIRECTED PRN PRN Reason: INR Morphine Sulfate (Morphine Sulfate Ir 15 Mg Tablet) 15 mg PO [facility] Last Admin: 09/04/20 21:20 Dose: 15 mg Documented by: Morphine Sulfate (Morphine Sulfate Er 30 Mg Tablet) 30 mg PO DAILY [facility]; Protocol Last Admin: 09/05/20 08:31 Dose: 30 mg Documented by: Naloxone HCl (Naloxone 0.4 Mg/Ml 1 Ml Vial) 0.2 mg IV Q2M PRN PRN Reason: Opioid Reversal Nystatin (Nystatin 100,000unit/Gm Cream 30 Gm Tube) 1 applic TOPICAL BID [facility] Last Admin: 09/05/20 08:32 Dose: 1 applic Documented by: Oxybutynin Chloride (Oxybutynin Chloride 5 Mg Tab) 5 mg PO TID [facility] Last Admin: 09/05/20 15:59 Dose: 5 mg Documented by: Pantoprazole Sodium (Pantoprazole 40 Mg Tablet) 40 mg PO DAILY [facility] Last Admin: 09/05/20 08:32 Dose: 40 mg Documented by: Triamcinolone Acetonide (Triamcinolone 0.1% Cream 80 Gm Tube) 1 applic TOPICAL BID [facility] Last Admin: 09/05/20 08:32 Dose: 1 applic Documented by: Warfarin Sodium (Warfarin 0.5 Mg Tab) 0 mg PO ONCE@1800 ONE Stop: 09/05/20 18:01 Last Admin: 09/05/20 16:00 Dose: Not Given Documented by: Past medical history to include: COPD, diabetes, hypertension, hyperlipidemia, osteoarthritis, chronic kidney disease, obstructive sleep apnea, 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 Does use a wheelchair. smoking a pack a day for over 50 years. No alcohol. Physical examination: VITAL SIGNS: 97.6, 83, 18, 131/78, 93% on 3 L GENERAL: , reclining in bed, short of breath. EYES: Pupils equal. Conjunctiva normal. HEENT: External appearance of nose and ears normal, oral cavity grossly normal. NECK: Short and thick, JVD unable to evaluate masses not palpable. HEART: First and second heart sounds are normal; edema present. LUNGS: Respiratory rate increased, decreased breath sound , prolonged expiration wheezing. ABDOMEN: Soft, nontender, liver spleen not palpable, no masses palpable. PSYCH: [Alert and oriented x3; mood and affect anxious EXTREMITIES: Left above-knee amputation. INVESTIGATIONS, reviewed in the clinical context: 2-D echocardiogram: EF 55-60% right ventricle moderately enlarged moderate tricuspid regurgitation, moderate pulmonary hypertension September 05: INR 6 potassium 4.2 creatinine 1.81 pro-calcitonin 0.11 proBNP 2510 WBC 6.2 hemoglobin 11.5 platelets 205 INR 6.3 potassium 4.3 bun 22 creatinine 2.23 Coronavirus [PCF]-not detected EKG tracing personally reviewed by me-normal sinus rhythm, right bundle branch block, some T-wave changes Chest x-ray film personally reviewed by me-infiltrates and venous prominence Assessment and plan: -Acute congestive heart failure exacerbation, from diastolic dysfunction EF 55- 60% Continue Lasix drip. Strict I's and O's. Follow electrolytes. About 1500 is a negative fluid balance -Acute on chronic cor pulmonale from COPD Continue diuresis -Secondary pulmonary hypertension moderate secondary to COPD Follow clinically -Possible pneumonia, suspect gram-negative organism IV ceftriaxone -Acute COPD exacerbation in a current smoker-slow to respond *DuoNeb, inhaled bronchodilators, inhaled long-acting beta agonist, IV Solu- Medrol -Chronic DVT, chronically on Coumadin Follow INR as per pharmacy -Coumadin toxicity with no bleeding-slow to respond Hold Coumadin for now and follow with pharmacy to dose. INR was 6 -Hyperlipidemia Continue Lipitor -Primary osteoarthritis Use pain control as needed -Chronic pain Continue with MS Contin Continue with bronchodilators, steroids, IV ceftriaxone, Lasix drip. Strict I's and O's. Care discussed with the patient. s
[2020-09-05 17:01] LABS: Glucose,Whole Blood 257 mg/dL (75-99)
[2020-09-05] MEDS ORDERED: WARFARIN 0.5 MG TAB PO ONE (18:00)
[2020-09-05 21:46] LABS: Glucose,Whole Blood 260 mg/dL (75-99)
[2020-09-05] MEDS: ATORVASTATIN 10 MG TAB PO SCH (22:20)
[2020-09-05] MEDS: MORPHINE SULFATE IR 15 MG TABLET PO SCH (22:20)
[2020-09-05] MEDS: INSULIN DETEMIR (LEVEMIR) 100 UNIT/ML SYR SQ SCH (22:23)
[2020-09-06] MEDS: FUROSEMIDE 100 MG in SODIUM CHLORIDE 0.9% 90 ML IV SCH ×3 (04:29→23:23)
[2020-09-06 06:19] LABS: African American GFR (CKD) 39 (>60 ml/min/1.73 sqM); Anion Gap 8 mmol/L; Blood Urea Nitrogen 28 mg/dL (7-17); Calcium 7.8 mg/dL (8.4-10.2); Carbon Dioxide 24 mmol/L (22-30); Chloride 103 mmol/L (98-107); Glucose 290 mg/dL (74-99); Non-African American GFR(CKD) 33 (>60 ml/min/1.73 sqM); Potassium 4.3 mmol/L (3.5-5.1); Sodium 135 mmol/L (137-145)
[2020-09-06 06:36] LABS: Prothrombin Time 51.3 sec (9.0-12.0)
[2020-09-06 06:46] LABS: INR 5.3 (<1.2)
[2020-09-06 07:01] LABS: Glucose,Whole Blood 283 mg/dL (75-99)
[2020-09-06] MEDS: FORMOTEROL FUMARATE 20 MCG/2 ML NEBU INHALATION SCH ×2 (08:02→19:20)
[2020-09-06] MEDS: IPRATROPIUM-ALBUTEROL 3 ML NEB INHALATION SCH ×4 (08:02→19:22)
[2020-09-06] MEDS: BUDESONIDE 1 MG/2 ML NEBU INHALATION SCH ×2 (08:02→19:20)
[2020-09-06] MEDS: INSULIN ASPART (NovoLOG) 100 UNIT/ML VIAL SQ SCH ×4 (09:41→20:41)
[2020-09-06] MEDS: MORPHINE SULFATE ER 30 MG TABLET PO SCH (09:42)
[2020-09-06] MEDS: methylPREDNISolone SOD SUCCI 40 MG/ML 1 ML VIAL IV SCH ×2 (09:42→15:14)
[2020-09-06] MEDS: OXYBUTYNIN CHLORIDE 5 MG TAB PO SCH ×3 (09:42→23:22)
[2020-09-06] MEDS: PANTOPRAZOLE 40 MG TABLET PO SCH (09:42)
[2020-09-06] MEDS: NYSTATIN 100,000UNIT/GM CREAM 30 GM TUBE TOPICAL SCH ×2 (09:43→21:21)
[2020-09-06] MEDS: FERROUS SULFATE 325 MG TAB PO SCH (09:43)
[2020-09-06] MEDS: TRIAMCINOLONE 0.1% CREAM 80 GM TUBE TOPICAL SCH ×2 (09:43→21:21)
[2020-09-06] MEDS: AMMONIUM LACTATE 12% CREAM 140 GM TUBE TOPICAL SCH ×2 (09:43→21:21)
[2020-09-06 12:01] LABS: Glucose,Whole Blood 247 mg/dL (75-99)
[2020-09-06] MEDS: MEROPENEM 1 GM in SODIUM CHLORIDE 0.9% 100 ML IVPB SCH ×2 (15:12→23:22)
--- NOTE | 2020-09-06 15:54 | P.PN ---
Progress Note - Text Progress Note Date: 09/06/20 Chief Complaint: Retaining water History of presenting complaint: This is a pleasant 63-year-old patient follows Dr. Tang. 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 Patient long-standing smoker. Patient presents with increasing swelling in the abdomen lower extremity. He has she has been short of breath. Also wheezing. Mild cough. Decrease appetite. Tired rundown. Admitted with acute CHF exacerbation-put on IV Lasix drip, pneumonia-put on IV ceftriaxone, acute COPD exacerbation-placed on bronchodilators steroids. Urine output cannot be measured well as patient has an external catheter.. Acute on chronic cor pulmonale exacerbation. Today: Remains a Lasix drip. Breathing and edema slowly coming down. Eating about 100%. Review of systems: Was done for constitutional, cardiovascular, GI, pulmonary. relevant finding as above Active Medications Albuterol Sulfate (Albuterol Nebulized 2.5 Mg/3 Ml) 2.5 mg INHALATION RT-Q4H PRN PRN Reason: Shortness Of Breath Albuterol/Ipratropium (Ipratropium-Albuterol 3 Ml Neb) 3 ml INHALATION RT-QID [facility] Last Admin: 09/06/20 15:19 Dose: Not Given Documented by: Atorvastatin Calcium (Atorvastatin 10 Mg Tab) 10 mg PO HS [facility] Last Admin: 09/05/20 22:20 Dose: 10 mg Documented by: Budesonide (Budesonide 1 Mg/2 Ml Nebu) 1 mg INHALATION RT-BID [facility] Last Admin: 09/06/20 08:02 Dose: 1 mg Documented by: Ferrous Sulfate (Ferrous Sulfate 325 Mg Tab) 325 mg PO DAILY [facility] Last Admin: 09/06/20 09:43 Dose: 325 mg Documented by: Formoterol Fumarate (Formoterol Fumarate 20 Mcg/2 Ml Nebu) 20 mcg INHALATION RT-BID [facility] Last Admin: 09/06/20 08:02 Dose: 20 mcg Documented by: Furosemide 100 mg/ Sodium (Chloride) 100 mls @ 10 mls/hr IV .Q10H [facility] Last Admin: 09/06/20 13:42 Dose: 10 mg/hr, 10 mls/hr Documented by: Meropenem 1 gm/ Sodium (Chloride) 100 mls @ 33.3 mls/hr IVPB Q12HR@0000,1200 [facility]; Protocol Last Admin: 09/06/20 15:12 Dose: 33.3 mls/hr Documented by: Insulin Aspart (Insulin Aspart (Novolog) 100 Unit/Ml Vial) 0 unit SQ ACHS [facility]; Protocol Last Admin: 09/06/20 12:29 Dose: 5 unit Documented by: Insulin Detemir (Insulin Detemir (Levemir) 100 Unit/Ml Syr) 30 unit SQ [facility] Last Admin: 09/05/20 22:23 Dose: 30 unit Documented by: Lactic Acid (Ammonium Lactate 12% Cream 140 Gm Tube) 1 applic TOPICAL BID [facility] Last Admin: 09/06/20 09:43 Dose: 1 applic Documented by: Methylprednisolone Sodium Succinate (Methylprednisolone Sod Succi 40 Mg/Ml 1 Ml Vial) 40 mg IV Q8HR [facility] Last Admin: 09/06/20 15:14 Dose: 40 mg Documented by: Miscellaneous Information (Warfarin Per Pharmacy) 0 each MISCELLANE DIRECTED PRN PRN Reason: INR Morphine Sulfate (Morphine Sulfate Ir 15 Mg Tablet) 15 mg PO [facility] Last Admin: 09/05/20 22:20 Dose: 15 mg Documented by: Morphine Sulfate (Morphine Sulfate Er 30 Mg Tablet) 30 mg PO DAILY [facility]; Protocol Last Admin: 09/06/20 09:42 Dose: 30 mg Documented by: Naloxone HCl (Naloxone 0.4 Mg/Ml 1 Ml Vial) 0.2 mg IV Q2M PRN PRN Reason: Opioid Reversal Nystatin (Nystatin 100,000unit/Gm Cream 30 Gm Tube) 1 applic TOPICAL BID [facility] Last Admin: 09/06/20 09:43 Dose: 1 applic Documented by: Oxybutynin Chloride (Oxybutynin Chloride 5 Mg Tab) 5 mg PO TID [facility] Last Admin: 09/06/20 15:14 Dose: 5 mg Documented by: Pantoprazole Sodium (Pantoprazole 40 Mg Tablet) 40 mg PO DAILY [facility] Last Admin: 09/06/20 09:42 Dose: 40 mg Documented by: Triamcinolone Acetonide (Triamcinolone 0.1% Cream 80 Gm Tube) 1 applic TOPICAL BID [facility] Last Admin: 09/06/20 09:43 Dose: 1 applic Documented by: Warfarin Sodium (Warfarin 0.5 Mg Tab) 0 mg PO ONCE@1800 ONE Stop: 09/06/20 18:01 Past medical history to include: COPD, diabetes, hypertension, hyperlipidemia, osteoarthritis, chronic kidney disease, obstructive sleep apnea, 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 Does use a wheelchair. smoking a pack a day for over 50 years. No alcohol. Physical examination: VITAL SIGNS: 97.4, 66, 18, 109/69, 96% on 2 L GENERAL: , reclining in bed, breathing better EYES: Pupils equal. Conjunctiva normal. HEENT: External appearance of nose and ears normal, oral cavity grossly normal. NECK: Short and thick, JVD unable to evaluate masses not palpable. HEART: First and second heart sounds are normal; edema present. LUNGS: Respiratory rate increased, decreased breath sound , prolonged expiration. ABDOMEN: Soft, nontender, liver spleen not palpable, no masses palpable. PSYCH: Alert and oriented x3; mood and affect anxious EXTREMITIES: Left above-knee amputation. INVESTIGATIONS, reviewed in the clinical context: August 29: INR 5.3 potassium 4.3 creatinine 1.63 2-D echocardiogram: EF 55-60% right ventricle moderately enlarged moderate tricuspid regurgitation, moderate pulmonary hypertension September 05: INR 6 potassium 4.2 creatinine 1.81 pro-calcitonin 0.11 proBNP 2510 WBC 6.2 hemoglobin 11.5 platelets 205 INR 6.3 potassium 4.3 bun 22 creatinine 2.23 Coronavirus [PCF]-not detected EKG tracing personally reviewed by me-normal sinus rhythm, right bundle branch block, some T-wave changes Chest x-ray film personally reviewed by me-infiltrates and venous prominence Assessment and plan: -Acute congestive heart failure exacerbation, from diastolic dysfunction EF 55-60%-slow to respond Continue Lasix drip. Strict I's and O's. Follow electrolytes. Urine output difficult to measure because of external catheter. -Acute on chronic cor pulmonale from COPD Continue diuresis -Acute UTI with cystitis from Klebsiella pneumoniae, ESBL Start meropenem -Secondary pulmonary hypertension moderate secondary to COPD Follow clinically -Possible pneumonia, suspect gram-negative organism-improved IV ceftriaxone, changed over to meropenem because of ESBL in the urine -Acute COPD exacerbation in a current smoker-improving *DuoNeb, inhaled bronchodilators, inhaled long-acting beta agonist, IV Nvly-Ebnllh-fiq back -Chronic DVT, chronically on Coumadin Follow INR as per pharmacy -Coumadin toxicity with no bleeding-slow to respond Hold Coumadin for now and follow with pharmacy to dose. INR was 6 -Hyperlipidemia Continue Lipitor -Primary osteoarthritis Use pain control as needed -Chronic pain syndrome Continue with MS Contin -Acute kidney injury, likely prerenal from cardiorenal syndrome Improving with Lasix drip -Suspect underlying chronic kidney disease, likely stage III Renal ultrasound. Nephrology consult Continue with bronchodilators, steroids, IV ceftriaxone, Lasix drip. Decrease Solu-Medrol to 40 mg every 12. Repeat labs.
--- NOTE | 2020-09-06 16:31 | US ---
EXAMINATION TYPE: US kidneys/renal and bladder DATE OF EXAM: 09/06/2020 COMPARISON: NONE CLINICAL HISTORY: Renal failure. EXAM MEASUREMENTS: Right Kidney: 9.7 x 4.9 x 3.9 cm Left Kidney: not identified Nondiagnostic study, right kidney identified but not well seen. Left kidney not seen. Patient is of l arge body habitus and unable to roll. Right Kidney: No hydronephrosis or masses seen, cortical medullary differentiation appears maintained Left Kidney: not identitfied Bladder: not identified, patient has catheter. No evident ascites. IMPRESSION: Exam is limited. No right-sided hydronephrosis.
[2020-09-06 17:01] LABS: Glucose,Whole Blood 215 mg/dL (75-99)
[2020-09-06] MEDS ORDERED: WARFARIN 0.5 MG TAB PO ONE (18:00)
[2020-09-06 20:23] LABS: Glucose,Whole Blood 210 mg/dL (75-99)
[2020-09-06] MEDS: MORPHINE SULFATE IR 15 MG TABLET PO SCH (20:39)
[2020-09-06] MEDS: ATORVASTATIN 10 MG TAB PO SCH (20:39)
[2020-09-06] MEDS: INSULIN DETEMIR (LEVEMIR) 100 UNIT/ML SYR SQ SCH (21:22)
[2020-09-07] MEDS: methylPREDNISolone SOD SUCCI 40 MG/ML 1 ML VIAL IV SCH ×2 (02:17→15:42)
[2020-09-07 06:55] LABS: Glucose,Whole Blood 182 mg/dL (75-99)
[2020-09-07 07:16] LABS: INR 2.7 (<1.2); Prothrombin Time 26.4 sec (9.0-12.0)
[2020-09-07 07:18] LABS: African American GFR (CKD) 43 (>60 ml/min/1.73 sqM); Anion Gap 8 mmol/L; Blood Urea Nitrogen 31 mg/dL (7-17); Calcium 7.8 mg/dL (8.4-10.2); Carbon Dioxide 29 mmol/L (22-30); Chloride 100 mmol/L (98-107); Glucose 179 mg/dL (74-99); Non-African American GFR(CKD) 37 (>60 ml/min/1.73 sqM); Potassium 3.6 mmol/L (3.5-5.1); Sodium 137 mmol/L (137-145)
[2020-09-07] MEDS: OXYBUTYNIN CHLORIDE 5 MG TAB PO SCH ×3 (07:47→20:33)
[2020-09-07] MEDS: MORPHINE SULFATE ER 30 MG TABLET PO SCH (07:47)
[2020-09-07] MEDS: FERROUS SULFATE 325 MG TAB PO SCH (07:48)
[2020-09-07] MEDS: INSULIN ASPART (NovoLOG) 100 UNIT/ML VIAL SQ SCH ×4 (07:48→20:38)
[2020-09-07] MEDS: PANTOPRAZOLE 40 MG TABLET PO SCH (07:48)
[2020-09-07] MEDS: NYSTATIN 100,000UNIT/GM CREAM 30 GM TUBE TOPICAL SCH ×2 (07:49→20:33)
[2020-09-07] MEDS: AMMONIUM LACTATE 12% CREAM 140 GM TUBE TOPICAL SCH ×2 (07:49→20:33)
[2020-09-07] MEDS: TRIAMCINOLONE 0.1% CREAM 80 GM TUBE TOPICAL SCH ×2 (07:50→20:33)
--- NOTE | 2020-09-07 08:01 | XR ---
EXAMINATION TYPE: XR chest 1V portable DATE OF EXAM: 09/07/2020 COMPARISON: Chest x-ray 09/04/2020 HISTORY: Pneumonia TECHNIQUE: Single frontal view of the chest is obtained. FINDINGS: Interstitium is increased. Heart remains enlarged. There are overlying artifacts. No evide nt pneumothorax or sizable effusion. IMPRESSION: Correlate for pulmonary venous hypertension and interstitial edema. Cardiomegaly. Follow -up suggested.
[2020-09-07] MEDS: FORMOTEROL FUMARATE 20 MCG/2 ML NEBU INHALATION SCH ×2 (08:12→20:09)
[2020-09-07] MEDS: IPRATROPIUM-ALBUTEROL 3 ML NEB INHALATION SCH ×4 (08:12→20:09)
[2020-09-07] MEDS: BUDESONIDE 1 MG/2 ML NEBU INHALATION SCH ×2 (08:13→20:09)
[2020-09-07] MEDS: FUROSEMIDE 100 MG in SODIUM CHLORIDE 0.9% 90 ML IV SCH ×2 (09:52→20:53)
[2020-09-07 11:49] LABS: Glucose,Whole Blood 201 mg/dL (75-99)
[2020-09-07] MEDS: MEROPENEM 1 GM in SODIUM CHLORIDE 0.9% 100 ML IVPB SCH ×2 (12:16→23:21)
--- NOTE | 2020-09-07 13:20 | PN ---
PROGRESS NOTE Rachel Enrique is a 64-year-old lady with a severe volume overload type picture, mostly edema for which she has been on Lasix drip with significant improvement, feels better. At the time of my evaluation, resting comfortably. Denies chest pain, shortness of breath or palpitation. Her PT/INR is better at 2.76. I am recommending a Coumadin of only 1 mg today[address] She sees Dr. Wyatt on a regular basis. Nephrology has been consulted. Her creatinine actually is improving. Vitals are stable. There is JVD of 1 cm. No carotid bruit. S1-S2 heard normally but distantly short systolic murmur noted. Lungs reveal diminished air entry. The patient has an amputation on the left side. Right lower extremity edema is improved but persists. RECOMMENDATIONS: I would recommend 1 mg Coumadin today and PT/INR to be followed and adjusted by Dr. Wyatt. I will see the patient as needed from a cardiac standpoint. No specific recommendations at this time. Her echocardiogram that was performed on the revealed preserved systolic function with moderate pulmonary hypertension. No significant valvular abnormality. We will see the patient as needed. MMODL / IJN: [id number] /
--- NOTE | 2020-09-07 14:56 | CONS ---
CONSULTATION REASON FOR CONSULT: Renal failure. HISTORY OF PRESENT ILLNESS: The patient is a 64-year-old female who was admitted to the hospital with complaints of increased lower extremity swelling, increased weight gain and shortness of breath. The patient has a history of type 2 diabetes, hypertension, obstructive sleep apnea. She states that she has had previous episodes of acute kidney injury. Last episode about 5 years ago. Serum creatinine was 1.49 today, it was 2.23 on initial admission. Previous labs noted in 2017 showed creatinine 0.9 mg/dL. The patient is not maintained on nonsteroidal anti-inflammatory agents or SERA inhibitors prior to admission. She has not received any IV contrast this admission. Ultrasound of the kidneys done yesterday does not does not show right hydronephrosis. Left kidney is not seen. PAST MEDICAL HISTORY: Significant for COPD, type 2 diabetes, obesity, DVT, hyperlipidemia, osteoarthritis, pneumonia, obstructive sleep apnea, anemia, peripheral vascular disease GI bleed with resultant ileostomy and bowel resection. PAST SURGICAL HISTORY: Above-knee amputation on the left side, ileostomy and bowel resection. SOCIAL HISTORY: Positive for smoking no history of drug abuse or alcohol abuse. MEDICATIONS: Prior to admission included iron, morphine, Coumadin, oxybutynin, Lipitor, Lasix, insulin, Protonix, Flexeril, potassium and [place]. ALLERGIES: Include KEFLEX, CIPRO, RASH AND HIVES. REVIEW OF SYSTEMS: As per HPI. Other systems negative. EXAMINATION: Currently awake, comfortable, obese, not in any acute distress, mildly short of breath. Alert, oriented x3. Blood pressure 107/55, heart rate 65 per minute. She is afebrile. Examination of the heart S1, S2. Examination of the lungs, bilateral breath sounds are heard. Abdomen is soft. Morbidly obese. Examination of lower extremities shows chronic skin changes, chronic edema bilaterally. Left AKA. LAB: Show sodium 137, potassium 3.6, chloride 100, BUN 31, creatinine 1.49. UA shows 1+ protein, WBCs 11. Lara virus PCR negative. ASSESSMENT: 1. Acute kidney injury, most likely cardiorenal and associated with hypotension, hypoperfusion. Systolic blood pressure was as low as 80s and 90s. This is currently improved. The patient is maintained on Lasix drip which we can continue for now. 2. Volume overload slowly improving although weight does not appear to have decreased from yesterday, but definitely lower than on admission. A 24 hour balance shows - 2.2 L. 3. Peripheral vascular disease. 4. Absent left kidney on ultrasound. 5. Morbid obesity. 6. Moderate concentric LVH. 7. Moderate pulmonary hypertension. PLAN: Continue to diurese patient. Avoid nephrotoxic medications. Repeat labs in a.m. Monitor electrolytes. Thank you for this consultation. Will continue to follow the patient with you during her hospitalization. MMODL / IJN: [id number] /
[2020-09-07 16:56] LABS: Glucose,Whole Blood 211 mg/dL (75-99)
[2020-09-07] MEDS ORDERED: WARFARIN 2 MG TAB PO ONE (18:00)
[2020-09-07] MEDS ORDERED: WARFARIN 1 MG TAB PO ONE (18:00)
[2020-09-07] MEDS ORDERED: IPRATROPIUM-ALBUTEROL 3 ML NEB ONE (19:11)
[2020-09-07 20:02] LABS: Glucose,Whole Blood 246 mg/dL (75-99)
[2020-09-07] MEDS: ATORVASTATIN 10 MG TAB PO SCH (20:33)
[2020-09-07] MEDS: MORPHINE SULFATE IR 15 MG TABLET PO SCH (20:33)
[2020-09-07] MEDS: INSULIN DETEMIR (LEVEMIR) 100 UNIT/ML SYR SQ SCH (20:39)
[2020-09-08] MEDS: methylPREDNISolone SOD SUCCI 40 MG/ML 1 ML VIAL IV SCH ×2 (02:13→14:57)
[2020-09-08] MEDS: FUROSEMIDE 100 MG in SODIUM CHLORIDE 0.9% 90 ML IV SCH ×2 (05:46→14:57)
[2020-09-08 06:00] LABS: INR 1.9 (<1.2); Prothrombin Time 18.8 sec (9.0-12.0)
[2020-09-08 07:10] LABS: Glucose,Whole Blood 276 mg/dL (75-99)
[2020-09-08] MEDS: INSULIN ASPART (NovoLOG) 100 UNIT/ML VIAL SQ SCH ×4 (07:23→21:18)
[2020-09-08] MEDS: OXYBUTYNIN CHLORIDE 5 MG TAB PO SCH ×3 (07:24→21:20)
[2020-09-08] MEDS: MORPHINE SULFATE ER 30 MG TABLET PO SCH (07:24)
[2020-09-08] MEDS: FERROUS SULFATE 325 MG TAB PO SCH (07:25)
[2020-09-08] MEDS: PANTOPRAZOLE 40 MG TABLET PO SCH (07:25)
[2020-09-08] MEDS: AMMONIUM LACTATE 12% CREAM 140 GM TUBE TOPICAL SCH ×2 (07:25→21:18)
[2020-09-08] MEDS: TRIAMCINOLONE 0.1% CREAM 80 GM TUBE TOPICAL SCH ×2 (07:25→21:20)
[2020-09-08] MEDS: NYSTATIN 100,000UNIT/GM CREAM 30 GM TUBE TOPICAL SCH ×2 (07:25→21:20)
[2020-09-08] MEDS: BUDESONIDE 1 MG/2 ML NEBU INHALATION SCH ×2 (08:02→20:38)
[2020-09-08] MEDS: IPRATROPIUM-ALBUTEROL 3 ML NEB INHALATION SCH ×4 (08:02→20:38)
[2020-09-08] MEDS: FORMOTEROL FUMARATE 20 MCG/2 ML NEBU INHALATION SCH ×2 (08:02→20:39)
--- NOTE | 2020-09-08 10:32 | P.PN ---
Subjective Progress Note Date: 09/07/20 Principal diagnosis: Acute exacerbation diastolic CHF UTI/cystitis Possible gram-negative pneumonia Acute exacerbation COPD Coumadin toxicity Acute renal injury Objective - Vital Signs Vital signs: Vital Signs Temp 97.3 F L 09/07/20 07:34 Pulse 84 09/07/20 12:16 Resp 18 09/07/20 07:34 BP 107/55 09/07/20 07:34 Pulse Ox 93 L 09/07/20 07:34 Intake & Output 09/06/20 09/07/20 09/07/20 18:59 06:59 18:59 Intake Total 92.167 496.833 100 Output Total 2810 900 Balance 92.167 -2313.167 -800 Weight 135.5 kg Intake: Intake, IV Titration 92.167 96.833 100 Amount Furosemide 100 mg In 92.167 96.833 100 Sodium Chloride 0.9% 90 ml @ 10 MG/HR 10 mls/hr IV .Q10H [facility] Rx#: [id number] Oral 400 Output: Gastric Drainage 250 Urine 2260 900 Stool 300 Other: Voiding Method Diaper Diaper Diaper External Catheter External Catheter External Catheter - Labs CBC & Chem 7: 09/03/20 22:07 09/07/20 06:15 Labs: Abnormal Lab Results - Last 24 Hours (Table) 09/06/20 09/06/20 09/07/20 Range/Units 16:58 20:21 06:15 PT 26.4 H (9.0-12.0) sec INR 2.7 H (<1.2) BUN (7-17) mg/dL Creatinine (0.52-1.04) mg/dL Glucose (74-99) mg/dL POC Glucose (mg/dL) 215 H 210 H (75-99) mg/dL Calcium (8.4-10.2) mg/dL 09/07/20 09/07/20 09/07/20 Range/Units 06:15 06:52 11:47 PT (9.0-12.0) sec INR (<1.2) BUN 31 H (7-17) mg/dL Creatinine 1.49 H (0.52-1.04) mg/dL Glucose 179 H (74-99) mg/dL POC Glucose (mg/dL) 182 H 201 H (75-99) mg/dL Calcium 7.8 L (8.4-10.2) mg/dL Microbiology - Last 24 Hours (Table) 09/03/20 22:07 Urine Culture - Final Urine,Voided Klebsiella pneumoniae Assessment and Plan Assessment: 1. Acute exacerbation diastolic CHF; EF 55-60%; patient remains on IV Lasix infusion; we will continue to monitor strict SANDY's, daily weights, renal function and electrolytes; continue with low-salt and fluid restricted diet 2. Acute UTI with cystitis from Klebsiella pneumoniae, ESBL; patient remains on IV meropenem; we will continue to monitor CBC, pro-calcitonin and CRP 3. Possible pneumonia, suspect gram-negative organism; clinically improving; patient remains on IV Merrem 4. Acute COPD exacerbation in a current smoker-improving with DuoNeb nebulizer treatments, inhaled bronchodilators, inhaled long-acting beta agonist, Solu- Medrol 40 mg IV every 12 hours 5. Chronic DVT/Coumadin toxicity; INR 2.7 this morning; Coumadin remains on hold; pharmacy on board to dose Coumadin 6. Hyperlipidemia; Continue Lipitor 7. Chronic pain syndrome; remains stable with MS Contin 8. Acute kidney injury/CK D stage III; patient remains on IV Lasix infusion; BUN/creatinine trending down to 31/1.49 from 28/1.63 yesterday; we will continue to monitor renal function and electrolytes; monitor strict I and O's; avoid nephrotoxins and hypotension; nephrology on board DVT prophylaxis; SCDs/systemic anticoagulation with Coumadin CODE STATUS; full code
[2020-09-08 10:46] LABS: Potassium 3.5 mmol/L (3.5-5.1)
[2020-09-08 10:47] LABS: African American GFR (CKD) 51 (>60 ml/min/1.73 sqM); Anion Gap 7 mmol/L; Blood Urea Nitrogen 39 mg/dL (7-17); Calcium 7.7 mg/dL (8.4-10.2); Carbon Dioxide 32 mmol/L (22-30); Chloride 101 mmol/L (98-107); Glucose 288 mg/dL (74-99); Non-African American GFR(CKD) 44 (>60 ml/min/1.73 sqM); Sodium 140 mmol/L (137-145)
[2020-09-08 11:56] LABS: Glucose,Whole Blood 277 mg/dL (75-99)
[2020-09-08] MEDS: MEROPENEM 1 GM in SODIUM CHLORIDE 0.9% 100 ML IVPB SCH (12:26)
--- NOTE | 2020-09-08 13:20 | PN ---
PROGRESS NOTE The patient is seen for followup for acute kidney injury, mostly cardiorenal. The patient is being diuresed. She is maintained on a Lasix drip. Overall she states she is feeling better. Her weight is down. A 24 hour output noted at 5.7 L with -4 L. PHYSICAL EXAMINATION: On examination today, blood pressure 108/66, heart rate 80 per minute, she is afebrile. Examination of the heart S1, S2. Examination of the lungs, bilateral breath sounds are heard. Decreased breath sounds at bases. Abdomen is soft, nontender. Examination of lower extremities shows chronic skin changes, chronic edema noted as well. TANNERY GUMMER exam grossly intact. LAB: Show sodium 140, potassium 3.5, chloride 101, BUN of 39, creatinine 1.3, CO2 is 32. ASSESSMENT: 1. Acute kidney injury, cardiorenal, currently improving. Continue to diurese patient. She remains volume overloaded and her volume status is improved. Weight is down. 2. Peripheral vascular disease. 3. Solitary kidney with absent left kidney on ultrasound. 4. Moderate pulmonary hypertension. 5. Volume overload, currently improving. PLAN: Continue with the Lasix drip. Repeat labs in a.m. Monitor electrolytes. MMODL / IJN: [id number] /
[2020-09-08 16:42] LABS: Glucose,Whole Blood 259 mg/dL (75-99)
[2020-09-08] MEDS ORDERED: WARFARIN 1 MG TAB PO ONE (18:00)
[2020-09-08 20:41] LABS: Glucose,Whole Blood 233 mg/dL (75-99)
--- NOTE | 2020-09-08 20:57 | P.PN ---
Subjective Progress Note Date: 09/08/20 Principal diagnosis: Acute exacerbation diastolic CHF UTI/cystitis Possible gram-negative pneumonia Acute exacerbation COPD Coumadin toxicity Acute renal injury 63-year-old patient follows Dr. Tang. 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 Patient long-standing smoker. Patient presents with increasing swelling in the abdomen lower extremity. He has she has been short of breath. Also wheezing. Mild cough. Decrease appetite. Tired rundown. Admitted with acute CHF exacerbation-put on IV Lasix drip, pneumonia-put on IV ceftriaxone, acute COPD exacerbation-placed on bronchodilators steroids. Urine output cannot be measured well as patient has an external catheter.. Acute on chronic cor pulmonale exacerbation. 09/08/2020 Patient is seen and evaluated in room at bedside; sitting up in bedside chair and denies any specific complaints Vital signs are reviewed and is stable with blood pressure of 108/66, pulse 80 O2 saturation above 95% Lab review shows a sodium of 140, potassium 3.5, chloride 101, BUN/creatinine of 39/1.3 Patient is admitted with acute exacerbation CHF with acute renal injury secondary to cardiorenal syndrome; has been transitioned to IV Lasix infusion; remains overloaded but overall volume status is improving; nephrology on board and recommending to continue with IV Lasix infusion Patient remains on Solu-Medrol 40 mg every 12 hours along with steroid and bronchodilator inhaler therapy; continue with Merrem 1 g IV every 12 hours for pneumonia; we will monitor CBC, CRP and pro-calcitonin Objective - Vital Signs Vital signs: Vital Signs Temp 97.3 F L 09/08/20 14:09 Pulse 71 09/08/20 14:09 Resp 18 09/08/20 14:09 BP 112/67 09/08/20 14:09 Pulse Ox 99 09/08/20 14:09 Intake & Output 09/07/20 09/08/20 09/08/20 18:59 06:59 18:59 Intake Total 1460 188.833 91.833 Output Total 2650 3100 Balance -1190 -2911.167 91.833 Weight 133 kg Intake: Intake, IV Titration 100 188.833 91.833 Amount Furosemide 100 mg In 100 188.833 91.833 Sodium Chloride 0.9% 90 ml @ 10 MG/HR 10 mls/hr IV .Q10H [facility] Rx#: [id number] Oral 0 Other 1360 Output: Urine 2650 2300 Stool 800 Other: Voiding Method Diaper Diaper Diaper External Catheter External Catheter External Catheter - Exam - Constitutional General appearance: Present: average body habitus, cooperative, no acute distress - EENT Eyes: Present: anicteric sclerae, EOMI, PERRLA, normal appearance ENT: Present: hearing grossly normal, normal oropharynx Ears: bilateral: normal - Neck Neck: Present: normal ROM. Absent: lymphadenopathy, rigidity, thyromegaly Carotids: negative: bruit present Thyroid: bilateral: normal size, negative: enlarged, nodule - Respiratory Respiratory: bilateral: CTA, negative: rales, rhonchi, wheezing - Cardiovascular Rhythm: regular Heart sounds: normal: S1, S2 Abnormal Heart Sounds: Absent: systolic murmur, diastolic murmur - Gastrointestinal General gastrointestinal: Present: normal bowel sounds, soft. Absent: distended, organomegaly, tenderness - Genitourinary Genitourinary Comment(s): deferred - Integumentary Integumentary: Present: normal turgor. Absent: jaundiced, rash, ulcer - Neurologic Neurologic: Present: CNII-XII intact. Absent: focal deficits - Musculoskeletal Musculoskeletal: Present: gait normal, strength equal bilaterally - Psychiatric Psychiatric: Present: A&O x's 3, appropriate affect, intact judgment & insight - Labs CBC & Chem 7: 09/03/20 22:07 09/08/20 04:50 Labs: Abnormal Lab Results - Last 24 Hours (Table) 09/07/20 09/07/20 09/08/20 Range/Units 16:53 20:01 04:50 PT 18.8 H (9.0-12.0) sec INR 1.9 H (<1.2) Carbon Dioxide (22-30) mmol/L BUN (7-17) mg/dL Creatinine (0.52-1.04) mg/dL Glucose (74-99) mg/dL POC Glucose (mg/dL) 211 H 246 H (75-99) mg/dL Calcium (8.4-10.2) mg/dL 09/08/20 09/08/20 09/08/20 Range/Units 04:50 07:04 11:44 PT (9.0-12.0) sec INR (<1.2) Carbon Dioxide 32 H (22-30) mmol/L BUN 39 H (7-17) mg/dL Creatinine 1.30 H (0.52-1.04) mg/dL Glucose 288 H (74-99) mg/dL POC Glucose (mg/dL) 276 H 277 H (75-99) mg/dL Calcium 7.7 L (8.4-10.2) mg/dL Assessment and Plan Assessment: 1. Acute exacerbation diastolic CHF; EF 55-60%; patient remains on IV Lasix infusion; we will continue to monitor strict SANDY's, daily weights, renal function and electrolytes; continue with low-salt and fluid restricted diet 2. Acute UTI with cystitis from Klebsiella pneumoniae, ESBL; patient remains on IV meropenem; we will continue to monitor CBC, pro-calcitonin and CRP 3. Possible pneumonia, suspect gram-negative organism; clinically improving; p atient remains on IV Merrem 4. Acute COPD exacerbation in a current smoker-improving with DuoNeb nebulizer treatments, inhaled bronchodilators, inhaled long-acting beta agonist, Solu- Medrol 40 mg IV every 12 hours 5. Chronic DVT/Coumadin toxicity; INR 2.7 this morning; Coumadin remains on hold; pharmacy on board to dose Coumadin 6. Hyperlipidemia; Continue Lipitor 7. Chronic pain syndrome; remains stable with MS Contin 8. Acute kidney injury/CK D stage III; patient remains on IV Lasix infusion; BUN/creatinine trending down to 31/1.49 from 28/1.63 yesterday; we will continue to monitor renal function and electrolytes; monitor strict I and O's; avoid nephrotoxins and hypotension; nephrology on board DVT prophylaxis; SCDs/systemic anticoagulation with Coumadin CODE STATUS; full code
[2020-09-08] MEDS: INSULIN DETEMIR (LEVEMIR) 100 UNIT/ML SYR SQ SCH (21:18)
[2020-09-08] MEDS: ATORVASTATIN 10 MG TAB PO SCH (21:18)
[2020-09-08] MEDS: MORPHINE SULFATE IR 15 MG TABLET PO SCH (21:19)
[2020-09-09] MEDS: MEROPENEM 1 GM in SODIUM CHLORIDE 0.9% 100 ML IVPB SCH ×3 (00:44→23:05)
[2020-09-09] MEDS: FUROSEMIDE 100 MG in SODIUM CHLORIDE 0.9% 90 ML IV SCH ×2 (03:16→11:51)
[2020-09-09] MEDS: methylPREDNISolone SOD SUCCI 40 MG/ML 1 ML VIAL IV SCH ×2 (03:26→15:53)
[2020-09-09 07:10] LABS: INR 1.5 (<1.2)
[2020-09-09 07:11] LABS: Prothrombin Time 15.4 sec (9.0-12.0)
[2020-09-09 07:26] LABS: Glucose,Whole Blood 169 mg/dL (75-99)
[2020-09-09] MEDS: PANTOPRAZOLE 40 MG TABLET PO SCH (07:39)
[2020-09-09] MEDS: OXYBUTYNIN CHLORIDE 5 MG TAB PO SCH ×3 (07:40→20:56)
[2020-09-09] MEDS: MORPHINE SULFATE ER 30 MG TABLET PO SCH (07:40)
[2020-09-09] MEDS: NYSTATIN 100,000UNIT/GM CREAM 30 GM TUBE TOPICAL SCH ×2 (07:41→20:58)
[2020-09-09] MEDS: AMMONIUM LACTATE 12% CREAM 140 GM TUBE TOPICAL SCH ×2 (07:41→20:58)
[2020-09-09] MEDS: FERROUS SULFATE 325 MG TAB PO SCH (07:41)
[2020-09-09] MEDS: INSULIN ASPART (NovoLOG) 100 UNIT/ML VIAL SQ SCH ×4 (07:43→20:56)
[2020-09-09] MEDS: TRIAMCINOLONE 0.1% CREAM 80 GM TUBE TOPICAL SCH ×2 (07:43→20:57)
[2020-09-09] MEDS: BUDESONIDE 1 MG/2 ML NEBU INHALATION SCH ×2 (07:44→20:01)
[2020-09-09] MEDS: IPRATROPIUM-ALBUTEROL 3 ML NEB INHALATION SCH ×4 (07:44→20:01)
[2020-09-09] MEDS: FORMOTEROL FUMARATE 20 MCG/2 ML NEBU INHALATION SCH ×2 (07:44→20:01)
[2020-09-09 09:31] LABS: Basophils # (A) 0.01 X 10*3/uL (0.00-0.10); Basophils % (A) 0.2 %; Eosinophils # (A) 0.01 X 10*3/uL (0.04-0.35); Eosinophils % (A) 0.2 %; HCT 43.5 % (37.2-46.3); HGB 11.3 g/dL (12.0-15.0); Lymphocytes # (A) 0.71 X 10*3/uL (0.90-5.00); MCH 23.1 pg (27.0-32.0); Mean Platelet Volume 11.5 fL (9.5-12.2); Monocytes # (A) 0.26 X 10*3/uL (0.20-1.00); Neutrophils # (A) 5.43 X 10*3/uL (1.80-7.70); Platelet Count 182 X 10*3/uL (140-440); RBC 4.89 X 10*6/uL (4.10-5.20); RDW 17.1 % (11.5-14.5); WBC 6.46 X 10*3/uL (4.50-10.00)
[2020-09-09 10:22] LABS: African American GFR (CKD) 61.9 (60.0-200.0); Anion Gap 8.5 mmol/L (4.00-12.00); BUN/Creat Ratio 34.55 Ratio (12.00-20.00); C Reactive Protein 0.4 mg/dL (0.0-0.8); Calcium 8.3 mg/dL (8.7-10.3); Carbon Dioxide 37.5 mmol/L (21.6-31.8); Non-African American GFR(CKD) 53.4 (60.0-200.0); Potassium 3.6 mmol/L (3.5-5.5)
[2020-09-09 12:08] LABS: Glucose,Whole Blood 186 mg/dL (75-99)
--- NOTE | 2020-09-09 13:09 | PN ---
PROGRESS NOTE Patient was seen for followup for acute kidney injury. She was admitted with volume overload and is currently being diuresed. She was maintained on Lasix drip which is continued so far. Overall, patient states she feels better. Her weight is down significantly. A 24 hour urine output was 5.7 L. EXAMINATION: Today patient is comfortable, awake, alert, oriented x3, not in any acute distress. Blood pressure 104/69, heart rate 67 per minute. She is afebrile. Examination of the heart S1, S2. Examination of lungs decreased breath sounds at bases. Abdomen is soft, obese, nontender. Examination of lower extremities shows chronic skin changes, chronic edema bilaterally. LAB: Show sodium 145, potassium 3.6, chloride 99, BUN 38, creatinine 1.1, hemoglobin 11.3 g/dL. ASSESSMENT: 1. Acute kidney injury cardiorenal currently improved. 2. Volume overload slowly improving, can switch to IV push Lasix from Lasix drip. 3. Absent left kidney on ultrasound. 4. Moderate concentric LVH. 5. Moderate pulmonary hypertension. PLAN: Switch to IV push Lasix. Discontinue Lasix drip. The patient is advised regarding salt and fluid restriction. MMODL / IJN: [id number] /
--- NOTE | 2020-09-09 14:06 | P.PN ---
Subjective 63-year-old patient follows Dr. Tang. 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 Patient long-standing smoker. Patient presents with increasing swelling in the abdomen lower extremity. He has she has been short of breath. Also wheezing. Mild cough. Decrease appetite. Tired rundown. Admitted with acute CHF exacerbation-put on IV Lasix drip, pneumonia-put on IV ceftriaxone, acute COPD exacerbation-placed on bronchodilators steroids. Urine output cannot be measured well as patient has an external catheter.. Acute on chronic cor pulmonale exacerbation. 09/08/2020 Patient is seen and evaluated in room at bedside; sitting up in bedside chair and denies any specific complaints Vital signs are reviewed and is stable with blood pressure of 108/66, pulse 80 O2 saturation above 95% Lab review shows a sodium of 140, potassium 3.5, chloride 101, BUN/creatinine of 39/1.3 Patient is admitted with acute exacerbation CHF with acute renal injury secondary to cardiorenal syndrome; has been transitioned to IV Lasix infusion; remains overloaded but overall volume status is improving; nephrology on board and recommending to continue with IV Lasix infusion Patient remains on Solu-Medrol 40 mg every 12 hours along with steroid and bronchodilator inhaler therapy; continue with Merrem 1 g IV every 12 hours for pneumonia; we will monitor CBC, CRP and pro-calcitonin Subjective: 09/09/2020 This is a pleasant 64 years old female who presented to emergency room initially on 09/03 for bilateral leg swelling for 3 weeks. Patient was using a wheelchair to get around. His symptoms was getting worse over 3 weeks Chest x-ray showing bilateral lung opacities suspicious for infection versus CHF echocardiogram showing ejection fraction of 55-60%. With moderate tricuspid regurgitation Patient currently saturating 95% oxygen via nasal cannula. Repeat chest x-ray: Correlate for pulmonary venous hypertension and interstitial edema. CBC is unremarkable, INR is 1.5. Creatinine 1.1 and glucose controlled. Current over is not detected. Patient is afebrile Patient currently kept on Lasix IV 6 mg twice daily per nephrology, meropenem, Solu-Medrol 40 mg twice daily and warfarin abdominal ultrasound: No ascites. No hydronephrosis lasix drip is switched to lasix iv 60 mg bid per nephrology team Objective - Vital Signs Vital signs: Vital Signs Temp 97.6 F 09/09/20 07:21 Pulse 60 09/09/20 11:30 Resp 18 09/09/20 07:21 BP 104/69 09/09/20 07:21 Pulse Ox 95 09/09/20 07:21 Intake & Output 09/08/20 09/09/20 09/09/20 18:59 06:59 18:59 Intake Total 91.833 100 85.833 Output Total 2300 3400 1050 Balance -2208.167 -3300 -964.167 Weight 132.5 kg Intake: Intake, IV Titration 91.833 100 85.833 Amount Furosemide 100 mg In 91.833 100 85.833 Sodium Chloride 0.9% 90 ml @ 10 MG/HR 10 mls/hr IV .Q10H [facility] Rx#: [id number] Output: Urine 2100 3200 900 Stool 200 200 150 Other: Voiding Method Diaper Diaper Diaper External Catheter External Catheter External Catheter # Bowel Movements 1 - Exam GENERAL: The patient is alert and oriented x3, not in any acute distress. Well developed, well nourished. HEENT: Pupils are round and equally reacting to light. EOMI. No scleral icterus. No conjunctival pallor. Normocephalic, atraumatic. No pharyngeal erythema. No thyromegaly. CARDIOVASCULAR: S1 and S2 present. No murmurs, rubs, or gallops. PULMONARY: Chest is clear to auscultation, no wheezing or crackles. ABDOMEN: Soft, nontender, nondistended, normoactive bowel sounds. No palpable organomegaly. MUSCULOSKELETAL: No joint swelling or deformity. EXTREMITIES: No cyanosis, clubbing, or pedal edema. NEUROLOGICAL: Gross neurological examination did not reveal any focal deficits. SKIN: No rashes. no petechiae. - Labs CBC & Chem 7: 09/09/20 06:34 09/09/20 06:34 Labs: Abnormal Lab Results - Last 24 Hours (Table) 09/08/20 09/08/20 09/09/20 Range/Units 16:40 20:40 06:34 Hgb (12.0-15.0) g/dL MCH (27.0-32.0) pg MCHC (32.0-37.0) g/dL RDW (11.5-14.5) % Lymphocytes # (0.90-5.00) X 10*3/uL Eosinophils # (0.04-0.35) X 10*3/uL PT 15.4 H (9.0-12.0) sec INR 1.5 H (<1.2) Carbon Dioxide (21.6-31.8) mmol/L BUN (9.0-27.0) mg/dL Est GFR (CKD-EPI)NonAf (60.0-200.0) BUN/Creatinine Ratio (12.00-20.00) Ratio Glucose (70-110) mg/dL POC Glucose (mg/dL) 259 H 233 H (75-99) mg/dL Calcium (8.7-10.3) mg/dL 09/09/20 09/09/20 09/09/20 Range/Units 06:34 06:34 07:20 Hgb 11.3 L (12.0-15.0) g/dL MCH 23.1 L (27.0-32.0) pg MCHC 26.0 L (32.0-37.0) g/dL RDW 17.1 H (11.5-14.5) % Lymphocytes # 0.71 L (0.90-5.00) X 10*3/uL Eosinophils # 0.01 L (0.04-0.35) X 10*3/uL PT (9.0-12.0) sec INR (<1.2) Carbon Dioxide 37.5 H (21.6-31.8) mmol/L BUN 38.0 H (9.0-27.0) mg/dL Est GFR (CKD-EPI)NonAf 53.4 L (60.0-200.0) BUN/Creatinine Ratio 34.55 H (12.00-20.00) Ratio Glucose 182 H (70-110) mg/dL POC Glucose (mg/dL) 169 H (75-99) mg/dL Calcium 8.3 L (8.7-10.3) mg/dL 09/09/20 Range/Units 12:04 Hgb (12.0-15.0) g/dL MCH (27.0-32.0) pg MCHC (32.0-37.0) g/dL RDW (11.5-14.5) % Lymphocytes # (0.90-5.00) X 10*3/uL Eosinophils # (0.04-0.35) X 10*3/uL PT (9.0-12.0) sec INR (<1.2) Carbon Dioxide (21.6-31.8) mmol/L BUN (9.0-27.0) mg/dL Est GFR (CKD-EPI)NonAf (60.0-200.0) BUN/Creatinine Ratio (12.00-20.00) Ratio Glucose (70-110) mg/dL POC Glucose (mg/dL) 186 H (75-99) mg/dL Calcium (8.7-10.3) mg/dL Assessment and Plan Assessment: 1. Acute exacerbation diastolic CHF; EF 55-60%; patient remains on IV Lasix IV; we will continue to monitor strict SANDY's, daily weights, renal function and electrolytes; continue with low-salt and fluid restricted diet 2. Acute UTI with cystitis from Klebsiella pneumoniae, ESBL; patient remains on IV meropenem; consult ID team 3. Possible pneumonia, felt less likely 4. Acute COPD exacerbation in a current smoker-improving with DuoNeb nebulizer treatments, inhaled bronchodilators, inhaled long-acting beta agonist, Solu- Medrol 40 mg IV every 12 hours 5. Chronic DVT/Coumadin toxicity; INR 2.7 this morning; Coumadin remains on hold; pharmacy on board to dose Coumadin 6. Hyperlipidemia; Continue Lipitor 7. Chronic pain syndrome; remains stable with MS Contin 8. Acute kidney injury/CK D stage III; improved DVT prophylaxis; SCDs/systemic anticoagulation with Coumadin CODE STATUS; full code
[2020-09-09 16:28] LABS: Glucose,Whole Blood 232 mg/dL (75-99)
[2020-09-09] MEDS ORDERED: WARFARIN 2 MG TAB PO ONE (18:00)
[2020-09-09 20:36] LABS: Glucose,Whole Blood 247 mg/dL (75-99)
[2020-09-09] MEDS: ATORVASTATIN 10 MG TAB PO SCH (20:56)
[2020-09-09] MEDS: FUROSEMIDE 10 MG/ML 10 ML VIAL IV SCH (20:56)
[2020-09-09] MEDS: MORPHINE SULFATE IR 15 MG TABLET PO SCH (20:56)
[2020-09-09] MEDS: INSULIN DETEMIR (LEVEMIR) 100 UNIT/ML SYR SQ SCH (21:29)
[2020-09-10] MEDS: methylPREDNISolone SOD SUCCI 40 MG/ML 1 ML VIAL IV SCH ×2 (03:55→15:04)
[2020-09-10 06:45] LABS: Glucose,Whole Blood 226 mg/dL (75-99)
[2020-09-10 06:50] LABS: INR 1.4 (<1.2); Prothrombin Time 14.4 sec (9.0-12.0)
[2020-09-10] MEDS: IPRATROPIUM-ALBUTEROL 3 ML NEB INHALATION SCH ×4 (08:19→21:17)
[2020-09-10] MEDS: FORMOTEROL FUMARATE 20 MCG/2 ML NEBU INHALATION SCH ×2 (08:20→21:16)
[2020-09-10] MEDS: BUDESONIDE 1 MG/2 ML NEBU INHALATION SCH ×2 (08:20→21:17)
[2020-09-10] MEDS: INSULIN ASPART (NovoLOG) 100 UNIT/ML VIAL SQ SCH ×4 (08:33→20:47)
[2020-09-10] MEDS: FUROSEMIDE 10 MG/ML 10 ML VIAL IV SCH ×3 (08:34→20:47)
[2020-09-10] MEDS: FERROUS SULFATE 325 MG TAB PO SCH (08:35)
[2020-09-10] MEDS: NYSTATIN 100,000UNIT/GM CREAM 30 GM TUBE TOPICAL SCH ×2 (08:35→20:46)
[2020-09-10] MEDS: TRIAMCINOLONE 0.1% CREAM 80 GM TUBE TOPICAL SCH ×2 (08:35→20:46)
[2020-09-10] MEDS: PANTOPRAZOLE 40 MG TABLET PO SCH (08:35)
[2020-09-10] MEDS: AMMONIUM LACTATE 12% CREAM 140 GM TUBE TOPICAL SCH ×2 (08:35→20:46)
[2020-09-10] MEDS: OXYBUTYNIN CHLORIDE 5 MG TAB PO SCH ×3 (08:35→20:47)
[2020-09-10] MEDS: MORPHINE SULFATE ER 30 MG TABLET PO SCH (08:36)
[2020-09-10 11:36] LABS: Glucose,Whole Blood 166 mg/dL (75-99)
[2020-09-10] MEDS: MEROPENEM 1 GM in SODIUM CHLORIDE 0.9% 100 ML IVPB SCH ×2 (11:44→23:15)
--- NOTE | 2020-09-10 13:12 | PN ---
PROGRESS NOTE Patient is seen for followup for volume overload, acute kidney injury. Renal function currently fairly stable and improved. The patient had been maintained on Lasix drip which has been changed to IV push Lasix. Overall, she is doing much better. PHYSICAL EXAMINATION: On examination today, blood pressure 105/67, heart rate 68 per minute. She is afebrile. Examination shows bilateral lower extremity chronic skin changes with chronic edema. Abdomen is soft. Morbidly obese. 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 LAB: Show from 09/09/2020, sodium 145, potassium 3.6, BUN 30, creatinine 1.1. ASSESSMENT: 1. Acute kidney injury cardiorenal, currently improved. 2. Severe volume overload, improved. Patient is currently maintained on IV push Lasix. We can switch to oral Lasix tomorrow. 3. Morbid obesity. 4. Solitary kidney with absent left kidney on ultrasound. 5. Moderate pulmonary hypertension. 6. Moderate concentric LVH. PLAN: Can switch to oral diuretics tomorrow. MMODL / IJN: [id number] /
[2020-09-10 14:13] VITALS: BMI 48.2
[2020-09-10 17:03] LABS: Glucose,Whole Blood 252 mg/dL (75-99)
[2020-09-10] MEDS ORDERED: WARFARIN 5 MG TAB PO ONE (18:00)
[2020-09-10 20:27] LABS: Glucose,Whole Blood 281 mg/dL (75-99)
[2020-09-10] MEDS: ATORVASTATIN 10 MG TAB PO SCH (20:47)
[2020-09-10] MEDS: MORPHINE SULFATE IR 15 MG TABLET PO SCH (20:47)
[2020-09-10] MEDS: INSULIN DETEMIR (LEVEMIR) 100 UNIT/ML SYR SQ SCH (20:47)
[2020-09-10 23:48] LABS: Appearance,Urine Clear (Clear); Bilirubin,Urine Negative (Negative); Blood,Urine Negative (Negative); Color,Urine Colorless; Glucose,Urine (UA) Negative (Negative); Ketones,Urine Negative (Negative); Leukocyte Esterase,Urine Negative (Negative); Nitrite,Urine Negative (Negative); PH, Urine 5.5 (5.0-8.0); Protein,Urine Negative (Negative); Specific Gravity,Urine 1.008 (1.001-1.035); Urobilinogen,Urine <2.0 mg/dL (<2.0)
--- NOTE | 2020-09-11 02:22 | CONS ---
CONSULTATION DATE OF SERVICE: 09/10/2020 REASON FOR CONSULTATION: Positive urine culture with ESBL Klebsiella. HISTORY OF PRESENT ILLNESS: The patient is a 64-year-old female, presented to the hospital about a week ago on 09/03/2020 for evaluation of increasing swelling. The patient was complaining of generalized swelling that has been getting worse over the last 3 days before presentation to the hospital. The patient did mention she had significant swelling to the lower extremities, abdomen and arms and the patient's clothes would not fit her anymore. With these symptoms the patient has been evaluated by the ER physician. On arrival to the ER, the patient has been afebrile and no fever has been recorded. Subsequently, over the last one week the patient did have a normal white count. Did have elevated INR of 6.0 on admission. The patient did have overall elevated creatinine on admission. Did have normal procalcitonin. The patient did have mildly positive UA. Coronavirus PCR was negative. The patient was diagnosed with cardiorenal syndrome and has been treated with IV Lasix. The patient mentioned significant improvement in her symptomatology as far as swelling is concerned. She is able to take a deep breath. Denies any chest pain or cough. No vomiting. No abdominal pain. No diarrhea. Denies any burning or frequency of urine. The patient's urine culture came back positive with Klebsiella pneumoniae which was ESBL. She was started on meropenem. Infectious Disease was consulted for further management of antibiotic therapy. REVIEW OF SYSTEMS: Positive points have been mentioned in HPI. Rest of systems are negative. PAST MEDICAL HISTORY: COPD, diabetes mellitus, DVT, hyperlipidemia, osteoarthritis, pneumonia, renal insufficiency, and anemia. PAST SURGICAL HISTORY: Bowel resection, left AKA and ileostomy. SOCIAL HISTORY: Patient is a current everyday smoker. Denies drinking or drug use. FAMILY HISTORY: Mother with history of hypertension. ALLERGIES: Allergies to CEPHALEXIN and CIPROFLOXACIN. MEDICATIONS: The patient is currently on Ventolin, DuoNeb, Lipitor, Pulmicort, iron sulfate, Lasix, NovoLog, meropenem 1 g 12. She is on Solu-Medrol, MS Contin, Narcan, Ditropan, Protonix and Kenalog. PHYSICAL EXAMINATION: Her blood pressure is 118/56, pulse of 78, temperature 98.4. She is 93% on 3 L nasal cannula. General description is a middle-aged female lying in in no distress. No tachypnea or accessory muscles of respiration use. HEENT: Examination shows slight pallor. No scleral icterus. Oral mucous membrane is dry. NECK: Trachea central. No thyromegaly. LUNGS: Unlabored breathing, decreased breath sounds at the bases. No wheeze or crackle. HEART: S1, S2. Regular rate and rhythm. ABDOMEN: Soft, no tenderness. No guarding, no rigidity. EXTREMITIES: Mild edema of the feet. SKIN: No rash or mass palpable. NEUROLOGICAL: Patient is awake, alert, oriented. Mood and affect normal. LABS: Hemoglobin is 11.3, white count 6.46, BUN of 38, creatinine 1.1. Urine was mildly positive. Culture now showing more than 100,000 colonies of ESBL Klebsiella. DIAGNOSTIC IMPRESSION AND PLAN: Patient presented to the hospital with generalized swelling in this patient who did have evidence of a fluid overload with concern for cardiorenal syndrome and this patient has responded to the IV Lasix. The patient does have a positive UA, however, the patient did not have any urinary symptoms of burning or frequency with concern for possible colonization or asymptomatic bacteriuria. PLAN: We will repeat a UA and cultures, if negative I recommend to discontinue the antibiotic and monitor the patient closely off antibiotic therapy. Thank you for this consultation. Will follow this patient along with you. MMODL / IJN: [id number] /
[2020-09-11] MEDS: methylPREDNISolone SOD SUCCI 40 MG/ML 1 ML VIAL IV SCH ×2 (04:11→13:37)
[2020-09-11 07:24] LABS: Glucose,Whole Blood 184 mg/dL (75-99)
[2020-09-11] MEDS: BUDESONIDE 1 MG/2 ML NEBU INHALATION SCH ×2 (08:07→21:07)
[2020-09-11] MEDS: IPRATROPIUM-ALBUTEROL 3 ML NEB INHALATION SCH ×4 (08:07→21:07)
[2020-09-11] MEDS: FORMOTEROL FUMARATE 20 MCG/2 ML NEBU INHALATION SCH ×2 (08:07→21:07)
[2020-09-11] MEDS: OXYBUTYNIN CHLORIDE 5 MG TAB PO SCH ×3 (09:28→21:21)
[2020-09-11] MEDS: FERROUS SULFATE 325 MG TAB PO SCH (09:28)
[2020-09-11] MEDS: INSULIN ASPART (NovoLOG) 100 UNIT/ML VIAL SQ SCH ×4 (09:29→21:28)
[2020-09-11] MEDS: PANTOPRAZOLE 40 MG TABLET PO SCH (09:29)
[2020-09-11] MEDS: FUROSEMIDE 10 MG/ML 10 ML VIAL IV SCH (09:29)
[2020-09-11] MEDS: MORPHINE SULFATE ER 30 MG TABLET PO SCH (09:30)
[2020-09-11] MEDS: AMMONIUM LACTATE 12% CREAM 140 GM TUBE TOPICAL SCH ×2 (09:31→21:22)
[2020-09-11] MEDS: NYSTATIN 100,000UNIT/GM CREAM 30 GM TUBE TOPICAL SCH ×2 (09:31→21:22)
[2020-09-11] MEDS: TRIAMCINOLONE 0.1% CREAM 80 GM TUBE TOPICAL SCH ×2 (09:31→21:22)
[2020-09-11 11:41] LABS: Glucose,Whole Blood 359 mg/dL (75-99)
[2020-09-11] MEDS: MEROPENEM 1 GM in SODIUM CHLORIDE 0.9% 100 ML IVPB SCH (11:51)
[2020-09-11 12:24] LABS: African American GFR (CKD) 79 (>60 ml/min/1.73 sqM); Blood Urea Nitrogen 39 mg/dL (7-17); Calcium 8.6 mg/dL (8.4-10.2); Chloride 88 mmol/L (98-107); Glucose 304 mg/dL (74-99); Magnesium 1.8 mg/dL (1.6-2.3); Non-African American GFR(CKD) 69 (>60 ml/min/1.73 sqM); Sodium 139 mmol/L (137-145)
[2020-09-11 12:30] LABS: Anion Gap 9 mmol/L
[2020-09-11 12:31] LABS: INR 1.6 (<1.2); Prothrombin Time 15.7 sec (9.0-12.0)
[2020-09-11 12:42] LABS: Carbon Dioxide 42 mmol/L (22-30)
--- NOTE | 2020-09-11 13:03 | PN ---
PROGRESS NOTE DATE OF SERVICE: 09/11/2020 REASON FOR FOLLOWUP: Positive culture with ESBL and Klebsiella. INTERVAL HISTORY: Patient is currently afebrile. The patient is breathing comfortably. The patient denies having any chest pain. No shortness of breath or cough. No abdominal pain. No diarrhea. PHYSICAL EXAMINATION: VITAL SIGNS: Blood pressure 129/71, pulse 36, temperature 87.2, she is 96% on 2 liters nasal cannula. GENERAL DESCRIPTION: A middle-aged female lying in bed in no distress. RESPIRATORY SYSTEM: Unlabored breathing, clear to auscultation anteriorly. HEART: S1, S2. Regular rate and rhythm. ABDOMEN: Soft, no tenderness. LAB: Repeat urine is negative. DIAGNOSTIC IMPRESSION AND PLAN: Patient admitted to the hospital with weakness and swelling with evidence of fluid overload. Did have mildly positive UA with UA growing Klebsiella, possible colonization versus mild cystitis as the patient does not have any symptoms. The patient's urine is negative. Discontinue antibiotics and no need for antibiotics on discharge. MMODL / IJN: [id number] /
[2020-09-11] MEDS ORDERED: Potassium Replacement Protocol 1 EACH MISC MISCELLANE PRN (13:21)
[2020-09-11] MEDS: POTASSIUM CHLORIDE ER 20 MEQ TAB.ER PO SCH ×2 (13:37→15:07)
[2020-09-11] MEDS: FUROSEMIDE 20 MG TAB PO SCH (15:14)
--- NOTE | 2020-09-11 15:55 | PN ---
PROGRESS NOTE Patient is seen for followup for acute kidney injury, mostly cardiorenal, currently maintained on IV Lasix. Serum creatinine has improved to 0.9 today. Patient is, however, alkalotic and CO2 increased to 42. She is maintained on IV push Lasix and I will switch her to p.o. diuretics. EXAMINATION: Today patient is comfortable. Blood pressure was 129/71, heart rate 69 per minute, she is afebrile. Examination of the heart S1, S2. Examination of the lungs, bilateral breath sounds are heard. Abdomen is soft. Morbidly obese. Examination of lower extremities shows chronic skin changes, chronic edema, currently improved. H[employer] RECRUITER exam grossly intact. LAB: Show sodium 139, potassium 3.0, chloride 88, CO2 is 42, BUN 39, creatinine 0.9 mg/dL. ASSESSMENT: 1. Acute kidney injury, mostly cardiorenal, currently significantly improved. 2. Metabolic alkalosis secondary to diuresis. Will add Diamox and change to p.o. Lasix. 3. Hypokalemia secondary to diuretics, will replace. 4. Volume overload, currently significantly improved. PLAN: Replace potassium. Change to p.o. Lasix. Add Diamox. MMODL / IJN: [id number] /
[2020-09-11] MEDS: acetaZOLAMIDE 250 MG TAB PO SCH ×2 (15:57→21:21)
[2020-09-11 16:48] LABS: Glucose,Whole Blood 344 mg/dL (75-99)
[2020-09-11] MEDS ORDERED: WARFARIN 3 MG TAB PO ONE (18:00)
[2020-09-11 19:57] VITALS: RESP 18
--- NOTE | 2020-09-11 20:13 | P.PN ---
Progress Note - Text Progress Note Date: 09/11/20 Chief Complaint: Retaining water History of presenting complaint: This is a pleasant 63-year-old patient follows Dr. Tang. 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 Patient long-standing smoker. Patient presents with increasing swelling in the abdomen lower extremity. He has she has been short of breath. Also wheezing. Mild cough. Decrease appetite. Tired rundown. Admitted with acute CHF exacerbation-put on IV Lasix drip, pneumonia- IV ceftriaxone, acute COPD exacerbation-placed on bronchodilators steroids. Urine output cannot be measured well as patient has an external catheter.. Acute on chronic cor pulmonale exacerbation. Patient responding well. Today: Oral feeling much better. Eating well. Breathing improved. Has external urine catheter. Review of systems: Was done for constitutional, cardiovascular, GI, pulmonary. relevant finding as above Active Medications Acetazolamide (Acetazolamide 250 Mg Tab) 250 mg PO BID [facility] Last Admin: 09/11/20 15:57 Dose: 250 mg Documented by: Albuterol Sulfate (Albuterol Nebulized 2.5 Mg/3 Ml) 2.5 mg INHALATION RT-Q4H P RN PRN Reason: Shortness Of Breath Albuterol/Ipratropium (Ipratropium-Albuterol 3 Ml Neb) 3 ml INHALATION RT-QID [facility] Last Admin: 09/11/20 16:35 Dose: 3 ml Documented by: Atorvastatin Calcium (Atorvastatin 10 Mg Tab) 10 mg PO HS [facility] Last Admin: 09/10/20 20:47 Dose: 10 mg Documented by: Budesonide (Budesonide 1 Mg/2 Ml Nebu) 1 mg INHALATION RT-BID [facility] Last Admin: 09/11/20 08:07 Dose: 1 mg Documented by: Ferrous Sulfate (Ferrous Sulfate 325 Mg Tab) 325 mg PO DAILY [facility] Last Admin: 09/11/20 09:28 Dose: 325 mg Documented by: Formoterol Fumarate (Formoterol Fumarate 20 Mcg/2 Ml Nebu) 20 mcg INHALATION RT-BID [facility] Last Admin: 09/11/20 08:07 Dose: 20 mcg Documented by: Furosemide (Furosemide 20 Mg Tab) 60 mg PO BID@0900,1600 [facility] Last Admin: 09/11/20 15:14 Dose: Not Given Documented by: Insulin Aspart (Insulin Aspart (Novolog) 100 Unit/Ml Vial) 0 unit SQ [facility]; Protocol Last Admin: 09/11/20 17:21 Dose: 9 unit Documented by: Insulin Detemir (Insulin Detemir (Levemir) 100 Unit/Ml Syr) 30 unit SQ [facility] Last Admin: 09/10/20 20:47 Dose: 30 unit Documented by: Lactic Acid (Ammonium Lactate 12% Cream 140 Gm Tube) 1 applic TOPICAL BID [facility] Last Admin: 09/11/20 09:31 Dose: 1 applic Documented by: Methylprednisolone Sodium Succinate (Methylprednisolone Sod Succi 40 Mg/Ml 1 Ml Vial) 40 mg IV Q12H [facility] Last Admin: 09/11/20 13:37 Dose: 40 mg Documented by: Miscellaneous Information (Warfarin Per Pharmacy) 0 each MISCELLANE DIRECTED PRN PRN Reason: INR Miscellaneous Information (Potassium Replacement Protocol 1 Each Misc) 1 each MISCELLANE DAILY PRN; Protocol PRN Reason: Per Protocol Morphine Sulfate (Morphine Sulfate Ir 15 Mg Tablet) 15 mg PO [facility] Last Admin: 09/10/20 20:47 Dose: 15 mg Documented by: Morphine Sulfate (Morphine Sulfate Er 30 Mg Tablet) 30 mg PO DAILY [facility]; Protocol Last Admin: 09/11/20 09:30 Dose: 30 mg Documented by: Naloxone HCl (Naloxone 0.4 Mg/Ml 1 Ml Vial) 0.2 mg IV Q2M PRN PRN Reason: Opioid Reversal Nystatin (Nystatin 100,000unit/Gm Cream 30 Gm Tube) 1 applic TOPICAL BID [facility] Last Admin: 09/11/20 09:31 Dose: 1 applic Documented by: Oxybutynin Chloride (Oxybutynin Chloride 5 Mg Tab) 5 mg PO TID [facility] Last Admin: 09/11/20 15:14 Dose: 5 mg Documented by: Pantoprazole Sodium (Pantoprazole 40 Mg Tablet) 40 mg PO DAILY [facility] Last Admin: 09/11/20 09:29 Dose: 40 mg Documented by: Triamcinolone Acetonide (Triamcinolone 0.1% Cream 80 Gm Tube) 1 applic TOPICAL BID [facility] Last Admin: 09/11/20 09:31 Dose: 1 applic Documented by: Past medical history to include: COPD, diabetes, hypertension, hyperlipidemia, osteoarthritis, chronic kidney disease, obstructive sleep apnea, 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 Does use a wheelchair. smoking a pack a day for over 50 years. No alcohol. Physical examination: VITAL SIGNS: 97.7, 66, 17, 129/71, 96% on 2 L GENERAL: , reclining in bed, appears comfortable EYES: Pupils equal. Conjunctiva normal. HEENT: External appearance of nose and ears normal, oral cavity grossly normal. NECK: Short and thick, JVD unable to evaluate masses not palpable. HEART: First and second heart sounds are normal; decrease edema LUNGS: Respiratory rate normal, decreased breath sound , ABDOMEN: Soft, nontender, liver spleen not palpable, no masses palpable. PSYCH: Alert and oriented x3; mood and affect normal EXTREMITIES: Left above-knee amputation. INVESTIGATIONS, reviewed in the clinical context: September 11: INR 1.6 potassium 3 creatinine 0.9 bicarb 42 August 29: INR 5.3 potassium 4.3 creatinine 1.63 2-D echocardiogram: EF 55-60% right ventricle moderately enlarged moderate tricuspid regurgitation, moderate pulmonary hypertension September 05: INR 6 potassium 4.2 creatinine 1.81 pro-calcitonin 0.11 proBNP 2510 WBC 6.2 hemoglobin 11.5 platelets 205 INR 6.3 potassium 4.3 bun 22 creatinine 2.23 Coronavirus [PCF]-not detected EKG tracing personally reviewed by me-normal sinus rhythm, right bundle branch block, some T-wave changes Chest x-ray film personally reviewed by me-infiltrates and venous prominence Assessment and plan: -Acute congestive heart failure exacerbation, from diastolic dysfunction EF 55-60%-improved Received Lasix drip. Strict I's and O's. Follow electrolytes. . Changed to by mouth Lasix 60 mg twice a day -Acute on chronic cor pulmonale from COPD-improved Continue diuresis. On by mouth Lasix -Acute UTI with cystitis from Klebsiella pneumoniae, ESBL Received meropenem. Repeat UA negative. Antibiotics discontinued -Secondary pulmonary hypertension moderate secondary to COPD Follow clinically -Possible pneumonia, suspect gram-negative organism-improved IV ceftriaxone, changed over to meropenem because of ESBL in the urine-completed course -Acute COPD exacerbation in a current improved *DuoNeb, inhaled bronchodilators, inhaled long-acting beta agonist, IV [id number]. Changed to oral prednisone -Chronic DVT, chronically on Coumadin Follow INR as per pharmacy -Coumadin toxicity with no bleeding-slow to respond Hold Coumadin for now and follow with pharmacy to dose. INR was 6 -Hyperlipidemia Continue Lipitor -Primary osteoarthritis Use pain control as needed -Chronic pain syndrome Continue with MS Contin -Acute kidney injury, likely prerenal from cardiorenal syndrome-improved Received Lasix drip -No chronic kidney disease Discussed with the patient. Change Solu-Medrol to by mouth prednisone. Also changed to by mouth Lasix. Increase Levemir to 40 units subcu daily at bedtime. Add NovoLog 12 units with each meal.
[2020-09-11 20:35] LABS: Glucose,Whole Blood 328 mg/dL (75-99)
[2020-09-11] MEDS ORDERED: INSULIN DETEMIR (LEVEMIR) 100 UNIT/ML SYR SQ SCH (21:00)
[2020-09-11] MEDS: ATORVASTATIN 10 MG TAB PO SCH (21:21)
[2020-09-11] MEDS: MORPHINE SULFATE IR 15 MG TABLET PO SCH (21:22)
[2020-09-12] MEDS: IPRATROPIUM-ALBUTEROL 3 ML NEB INHALATION SCH ×3 (07:14→15:23)
[2020-09-12] MEDS: FORMOTEROL FUMARATE 20 MCG/2 ML NEBU INHALATION SCH (07:14)
[2020-09-12] MEDS: BUDESONIDE 1 MG/2 ML NEBU INHALATION SCH (07:14)
[2020-09-12 07:24] LABS: Glucose,Whole Blood 137 mg/dL (75-99)
[2020-09-12] MEDS: FERROUS SULFATE 325 MG TAB PO SCH (08:05)
[2020-09-12] MEDS: MORPHINE SULFATE ER 30 MG TABLET PO SCH (08:05)
[2020-09-12] MEDS: OXYBUTYNIN CHLORIDE 5 MG TAB PO SCH (08:06)
[2020-09-12] MEDS: PANTOPRAZOLE 40 MG TABLET PO SCH (08:06)
[2020-09-12] MEDS: AMMONIUM LACTATE 12% CREAM 140 GM TUBE TOPICAL SCH (08:07)
[2020-09-12] MEDS: INSULIN ASPART (NovoLOG) 100 UNIT/ML VIAL SQ SCH ×4 (08:07→12:00)
[2020-09-12] MEDS: FUROSEMIDE 20 MG TAB PO SCH (08:07)
[2020-09-12] MEDS: NYSTATIN 100,000UNIT/GM CREAM 30 GM TUBE TOPICAL SCH (08:07)
[2020-09-12] MEDS: acetaZOLAMIDE 250 MG TAB PO SCH (08:07)
[2020-09-12] MEDS: TRIAMCINOLONE 0.1% CREAM 80 GM TUBE TOPICAL SCH (08:07)
[2020-09-12] MEDS ORDERED: predniSONE 20 MG TAB PO SCH (09:00)
[2020-09-12 09:04] LABS: INR 1.9 (<1.2)
[2020-09-12 09:44] LABS: African American GFR (CKD) 67 (>60 ml/min/1.73 sqM); Blood Urea Nitrogen 32 mg/dL (7-17); Calcium 8.6 mg/dL (8.4-10.2); Chloride 92 mmol/L (98-107); Glucose 112 mg/dL (74-99); Non-African American GFR(CKD) 58 (>60 ml/min/1.73 sqM); Sodium 141 mmol/L (137-145)
[2020-09-12 09:50] LABS: Anion Gap 5 mmol/L
[2020-09-12 09:53] LABS: Carbon Dioxide 44 mmol/L (22-30)
[2020-09-12] MEDS: POTASSIUM CHLORIDE ER 20 MEQ TAB.ER PO SCH ×2 (12:00→12:59)
[2020-09-12 12:01] LABS: Glucose,Whole Blood 102 mg/dL (75-99)
--- NOTE | 2020-09-12 14:00 | PN ---
PROGRESS NOTE DATE OF SERVICE: 09/12/2020 REASON FOR FOLLOWUP: Klebsiella pneumoniae, positive urine culture. INTERVAL HISTORY: Patient is afebrile. The patient is breathing comfortably. The patient denies having any chest pain, shortness of breath or cough. No abdominal pain or diarrhea. PHYSICAL EXAMINATION: Blood pressure is 134/79 with pulse of 70, temperature 97.7. She is 100% on 3 L nasal cannula. General description: The patient is a middle-aged female lying in in no distress. Respiratory system: Unlabored breathing, clear to auscultation anteriorly. Heart S1, S2. Regular rate and rhythm. ABDOMEN: Soft, no tenderness. LABS: BUN of 32, creatinine 1.02. Repeat urine is negative. DIAGNOSTIC IMPRESSION AND PLAN: Patient with a positive urine culture with ESBL Klebsiella. Possible mild cystitis, adequately treated. Repeat UA is negative. The patient is currently off antibiotic therapy. Continue supportive care. MMODL / IJN: [id number] /
--- NOTE | 2020-09-12 14:45 | PN ---
PROGRESS NOTE The patient is seen for followup for acute kidney injury and volume overload. She was maintained on Lasix drip which was discontinued. She has developed significant metabolic alkalosis. Her CO2 is up to 44. Patient was started on Diamox yesterday. She denies any significant complaints today. PHYSICAL EXAMINATION: Blood pressure was 134/79, heart rate 73 per minute. She is afebrile. Examination of the heart S1, S2. Examination of the lungs, bilateral breath sounds are heard. Abdomen is soft. Morbidly obese. Examination of lower extremities shows bilateral extremities to be wrapped. Chronic edema is present. [employer]ING exam grossly intact. LAB: Show sodium 141, potassium 3.1, BUN 32, creatinine 1.0, CO2 is 44. ASSESSMENT: 1. Acute kidney injury cardiorenal currently improved. 2. Metabolic alkalosis secondary to diuresis, maintained on oral Diamox, which we can continue. Lasix was decreased to 60 mg p.o. b.i.d. 3. Volume overload currently improved. 4. Congestive heart failure, mostly diastolic heart failure with moderate pulmonary hypertension. Ejection fraction 55% to 60%. PLAN: Continue with oral Diamox. Continue with current dose of Lasix. I will hold the 2nd dose of Lasix for now and we can resume in a.m. MMODL / IJN: [id number] /
[2020-09-12 15:29] VITALS: BP 101/70; PULSE 79; TEMP 98.4
[2020-09-12] MEDS ORDERED: WARFARIN 3 MG TAB PO ONE (18:00)
--- NOTE | 2020-09-12 19:53 | P.DS ---
Providers Date of admission: 09/04/20 01:15 Expected date of discharge: 09/12/20 Attending physician: Yasmany Montemayor Consults: 09/04/20 00:41 Consult Physician Routine Consulting Provider: [facility] Consult Reason/Comments: CHF Do you want consulting provider notified?: Yes 09/06/20 11:48 Consult Physician Routine Consulting Provider: Erasto Alaniz Consult Reason/Comments: CKD Do you want consulting provider notified?: Yes 09/09/20 13:56 Consult Physician Urgent Consulting Provider: Augustine Servin Consult Reason/Comments: ESBL klebsiella in urine Do you want consulting provider notified?: Yes [facility]: Chief Complaint: Retaining water History of presenting complaint: This is a pleasant 63-year-old patient follows Dr. Tang. 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 Patient long-standing smoker. Patient presents with increasing swelling in the abdomen lower extremity. He has she has been short of breath. Also wheezing. Mild cough. Decrease appetite. Tired rundown. Admitted with acute CHF exacerbation-put on IV Lasix drip, pneumonia- IV ceftriaxone, acute COPD exacerbation-placed on bronchodilators steroids. Urine output cannot be measured well as patient has an external catheter.. Acute on chronic cor pulmonale exacerbation. Patient responding well. Patient lost a significant amount of water. Today: Breathing stable. Doing much better. Discussed with physical therapy. Patient has been doing rather well. Should be doing well at home. Discussed with case sealer. Patient stable to be discharged home. As far as further discussed with the patient. Discussion and discharge planning more than 35 minutes Consultation: Nephrology Dr. 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 Does use a wheelchair. smoking a pack a day for over 50 years. No alcohol. Physical examination: VITAL SIGNS: 98.4, 79, 18, 101/70, 92% on 2 L GENERAL: , reclining in bed, comfortable EYES: Pupils equal. Conjunctiva normal. NECK: Short and thick, JVD unable to evaluate masses not palpable. HEART: First and second heart sounds are normal; decrease edema LUNGS: Respiratory rate normal, decreased breath sound , ABDOMEN: Soft, nontender, liver spleen not palpable, no masses palpable. PSYCH: Alert and oriented x3; mood and affect normal EXTREMITIES: Left above-knee amputation. INVESTIGATIONS, reviewed in the clinical context: September 12: INR 1.9 potassium 3 creatinine 1.03 September 11: INR 1.6 potassium 3 creatinine 0.9 bicarb 42 August 29: INR 5.3 potassium 4.3 creatinine 1.63 2-D echocardiogram: EF 55-60% right ventricle moderately enlarged moderate tricuspid regurgitation, moderate pulmonary hypertension September 05: INR 6 potassium 4.2 creatinine 1.81 pro-calcitonin 0.11 proBNP 2510 WBC 6.2 hemoglobin 11.5 platelets 205 INR 6.3 potassium 4.3 bun 22 creatinine 2.23 Coronavirus [PCF]-not detected EKG tracing personally reviewed by me-normal sinus rhythm, right bundle branch block, some T-wave changes Chest x-ray film personally reviewed by me-infiltrates and venous prominence Assessment and plan: -Acute congestive heart failure exacerbation, from diastolic dysfunction EF 55-60%-improved Received Lasix drip. Strict I's and O's. . Changed to by mouth Lasix 60 mg a day -Acute on chronic cor pulmonale from COPD-improved Continue diuresis. On by mouth Lasix -Acute UTI with cystitis from Klebsiella pneumoniae, ESBL Received meropenem. Repeat UA negative. Antibiotics discontinued -Secondary pulmonary hypertension moderate secondary to COPD Follow clinically -Possible pneumonia, suspect gram-negative organism-improved IV ceftriaxone, changed over to meropenem because of ESBL in the urine-completed course -Acute COPD exacerbation in a current improved *DuoNeb, inhaled bronchodilators, inhaled long-acting beta agonist, IV Hkor-Njuarp-[id number]. DC on prednisone taper. Add Symbicort -Chronic DVT, chronically on Coumadin Follow INR as per pharmacy -Coumadin toxicity with no bleeding- improved Follow INR -Hyperlipidemia Continue Lipitor -Primary osteoarthritis Use pain control as needed -Chronic pain syndrome Continue with MS Contin -Acute kidney injury, likely prerenal from cardiorenal syndrome-improved Received Lasix drip -No chronic kidney disease Disposition: Home Plan - Discharge Summary Discharge Rx Participant: Yes New Discharge Prescriptions: New acetaZOLAMIDE [Diamox] 250 mg PO BID #20 tab predniSONE 10 mg PO DAILY #30 tab Budesonide-Formot 160-4.5 Mcg [Symbicort 160-4.5 Mcg Inhaler] 1 puff INHALATION BID #1 inhaler Ipratropium-Albuterol Nebulize [Duoneb 0.5 mg-3 mg/3 ml Soln] 3 ml INHALATION TID #90 ml Nicotine 21Mg/24Hr Patch [Habitrol] 1 each TRANSDERM DAILY #14 patch Continue Oxybutynin Chloride 5 mg PO TID Ferrous Sulfate [Iron (65 MG Elemental)] 325 mg PO DAILY Morphine Sulfate [Ms Contin] 30 mg PO DAILY Albuterol Inhaler [Ventolin Hfa Inhaler] 1 puff INHALATION RT-Q4H PRN PRN Reason: Shortness Of Breath Insulin Detemir [Levemir Flextouch] 30 units SQ HS Pantoprazole Sodium [Protonix] 40 mg PO DAILY Triamcinolone 0.1% Cream [Kenalog 0.1% Cream] 1 applicatio TOPICAL BID Potassium Chloride [Klor-Con 20] 40 meq PO DAILY HYDROcodone/APAP 10-325MG [[place] 10-325] 1 tab PO Q4HR PRN PRN Reason: Pain Ammonium Lactate Cream [Lac-Hydrin 12% Cream] 1 applic TOPICAL BID Atorvastatin [Lipitor] 10 mg PO HS Morphine Sulfate 15 mg PO HS Nystatin 100,000Unit/gm Cream [Mycostatin Cream] 1 applic TOPICAL BID Cyclobenzaprine [Flexeril] 10 mg PO TID PRN PRN Reason: Muscle Spasm Changed Insulin Aspart [NovoLOG Flexpen] 12 units SQ AC-TID #0 Furosemide [Lasix] 60 mg PO DAILY #0 No Action Warfarin [Coumadin] 2 mg PO HS Discharge Medication List Ferrous Sulfate [Iron (65 MG Elemental)] 325 mg PO DAILY 08/27/16 [History] Morphine Sulfate [Ms Contin] 30 mg PO DAILY 08/27/16 [History] Oxybutynin Chloride 5 mg PO TID 08/27/16 [History] Warfarin [Coumadin] 2 mg PO HS 08/27/16 [History] Albuterol Inhaler [Ventolin Hfa Inhaler] 1 puff INHALATION RT-Q4H PRN 09/03/20 [History] Ammonium Lactate Cream [Lac-Hydrin 12% Cream] 1 applic TOPICAL BID 09/03/20 [History] Atorvastatin [Lipitor] 10 mg PO HS 09/03/20 [History] Insulin Detemir [Levemir Flextouch] 30 units SQ HS 09/03/20 [History] Morphine Sulfate 15 mg PO HS 09/03/20 [History] Nystatin 100,000Unit/gm Cream [Mycostatin Cream] 1 applic TOPICAL BID 09/03/20 [History] Pantoprazole Sodium [Protonix] 40 mg PO DAILY 09/03/20 [History] Triamcinolone 0.1% Cream [Kenalog 0.1% Cream] 1 applicatio TOPICAL BID 09/03/20 [History] Cyclobenzaprine [Flexeril] 10 mg PO TID PRN 09/04/20 [History] HYDROcodone/APAP 10-325MG [[place] 10-325] 1 tab PO Q4HR PRN 09/04/20 [History] Potassium Chloride [Klor-Con 20] 40 meq PO DAILY 09/04/20 [History] Budesonide-Formot 160-4.5 Mcg [Symbicort 160-4.5 Mcg Inhaler] 1 puff INHALATION BID #1 inhaler 09/12/20 [Rx] Furosemide [Lasix] 60 mg PO DAILY #0 09/12/20 [Rx] Insulin Aspart [NovoLOG Flexpen] 12 units SQ AC-TID #0 09/12/20 [Rx] Ipratropium-Albuterol Nebulize [Duoneb 0.5 mg-3 mg/3 ml Soln] 3 ml INHALATION TID #90 ml 09/12/20 [Rx] Nicotine 21Mg/24Hr Patch [Habitrol] 1 each TRANSDERM DAILY #14 patch 09/12/20 [Rx] acetaZOLAMIDE [Diamox] 250 mg PO BID #20 tab 09/12/20 [Rx] predniSONE 10 mg PO DAILY #30 tab 09/12/20 [Rx] Follow up Appointment(s)/Referral(s): Tariq Tang MD [Primary Care Provider] - 1-2 days (Office will call patient with a time for visit) Aiyana Wyatt MD [STAFF PHYSICIAN] - 10/15/20 9:00 am Patient Instructions/Handouts: Warfarin (By mouth), Heart Failure (DC) Activity/Diet/Wound Care/Special Instructions: inr bmp -3 days Discharge Disposition: HOME SELF-CARE
== END 2020-09-12 16:25 | disposition home or self-care (01) | DRG 291 ==
LOC: EC 20:53 → 4SSUR 09-04 01:15
PROVIDERS: ADMIT Hospitalist; ATTEND Hospitalist
PROC: 05HC33Z Insertion of Infusion Device into Left Basilic Vein, Percutaneous Approach (ICD-10-PCS; principal; 2020-09-10 16:15)
DX: I13.0 Hypertensive heart and chronic kidney disease with heart failure and stage 1 through stage 4 chronic kidney disease, or unspecified chronic kidney disease (principal); I50.33 Acute on chronic diastolic (congestive) heart failure; I26.09 Other pulmonary embolism with acute cor pulmonale; J18.9 Pneumonia, unspecified organism; J44.1 Chronic obstructive pulmonary disease with (acute) exacerbation; N17.9 Acute kidney failure, unspecified; Z68.42 Body mass index [BMI] 45.0-49.9, adult; E87.3 Alkalosis; R60.1 Generalized edema; Z79.01 Long term (current) use of anticoagulants; Z20.822 Contact with and (suspected) exposure to COVID-19; Z79.4 Long term (current) use of insulin; E11.22 Type 2 diabetes mellitus with diabetic chronic kidney disease; E78.5 Hyperlipidemia, unspecified; Z86.718 Personal history of other venous thrombosis and embolism; Z89.612 Acquired absence of left leg above knee; M19.90 Unspecified osteoarthritis, unspecified site; F17.210 Nicotine dependence, cigarettes, uncomplicated; G47.33 Obstructive sleep apnea (adult) (pediatric); Z99.3 Dependence on wheelchair; T45.515A Adverse effect of anticoagulants, initial encounter; R79.1 Abnormal coagulation profile; N18.9 Chronic kidney disease, unspecified; E11.51 Type 2 diabetes mellitus with diabetic peripheral angiopathy without gangrene; E66.01 Morbid (severe) obesity due to excess calories; I27.29 Other secondary pulmonary hypertension; Z82.49 Family history of ischemic heart disease and other diseases of the circulatory system; Z88.1 Allergy status to other antibiotic agents; I48.91 Unspecified atrial fibrillation; N30.90 Cystitis, unspecified without hematuria; G89.4 Chronic pain syndrome; B96.1 Klebsiella pneumoniae [K. pneumoniae] as the cause of diseases classified elsewhere
CPT/HCPCS: 36410; 36415; 71045; 76770; 76937; 80048; 80053; 81001; 81003; 83735; 83880; 84132; 84145; 85025; 85610; 86140; 87077; 87086; 87186; 87635; 93005; 93306; 94640; 94760; 99285

== ENCOUNTER 2020-12-03 12:20 | Observation (INO) | payer MEDICARE, OTHER ==
--- NOTE | 2020-12-03 12:57 | ED ---
General Adult HPI - General Chief complaint: Shortness of Breath Stated complaint: Fluid Retention Time Seen by Provider: 12/03/20 12:24 Source: patient, RN notes reviewed, old records reviewed Mode of arrival: wheelchair Limitations: physical limitation - History of Present Illness Initial comments: Patient is a 65-year-old female with past medical history remarkable for COPD, diabetes, prior DVT on chronic warfarin, left AKA, renal disease, sleep apnea, heart failure who presents emergency department over concern for exacerbation of her congestive heart failure. Patient has a history of CHF. She states that she has been taking water pills in her PCP has been increasing the lower pole she has been on over the last few weeks, however she still seems to be retaining fluid. She is complaining of exertional dyspnea, fatigue, worsening orthopnea. Denies any PND. Endorses right lower extremity edema. Patient states she is also weeping from the stump on her left lower extremity. She also has a sore on her left lower extremity which is currently treated with Bactrim. She denies missing doses of her medications. Patient presents with a family member who is very educated with her medications and workup. Patient denies any fevers, chil ls. She endorses a nonproductive cough. She is not on oxygen at home. Did not get vaccinated for COVID-19. Her PCP, Dr. Tang, instructed the patient to present to the emergency department for evaluation.Patient also complains of a irritating rash under her pannus which she cannot see, with a history of a fungal infection there. - Related Data Home Medications Medication Instructions Recorded Confirmed Ferrous Sulfate [Iron (65 MG 325 mg PO DAILY 08/27/16 12/03/20 Elemental)] Oxybutynin Chloride 10 mg PO DAILY 08/27/16 12/03/20 Warfarin [Coumadin] 1 mg PO HS 08/27/16 12/03/20 Atorvastatin [Lipitor] 10 mg PO HS 09/03/20 12/03/20 Insulin Detemir [Levemir Flextouch] 20 units SQ Q48H 09/03/20 12/03/20 Pantoprazole Sodium [Protonix] 40 mg PO HS 09/03/20 12/03/20 Cyclobenzaprine [Flexeril] 10 mg PO TID PRN 09/04/20 12/03/20 HYDROcodone/APAP 10-325MG [[place] 1 tab PO Q4HR PRN 09/04/20 12/03/20 10-325] Potassium Chloride [Klor-Con 20] 40 meq PO DAILY 09/04/20 12/03/20 Cyclobenzaprine [Flexeril] 10 mg PO HS 12/03/20 12/03/20 Furosemide [Lasix] 80 mg PO DAILY 12/03/20 12/03/20 Insulin Aspart [NovoLOG Flexpen] 20 units SQ AC-TID 12/03/20 12/03/20 Ipratropium-Albuterol Nebulize 3 ml INHALATION RT-TID PRN 12/03/20 12/03/20 [Duoneb 0.5 mg-3 mg/3 ml Soln] Morphine Sulfate ER [Ms Contin] 15 mg PO TID 12/03/20 12/03/20 Oxybutynin Chloride [Ditropan] 5 mg PO DAILY@1500 12/03/20 12/03/20 Sulfamethox-Tmp 800-160Mg [Bactrim 1 tab PO BID 12/03/20 12/03/20 DS 800-160 mg] metOLazone [Zaroxolyn] 5 mg PO DAILY 12/03/20 12/03/20 Allergies Allergy/AdvReac Type Severity Reaction Status Date / Time cephalexin [From Keflex] Allergy Rash/Hives Verified 12/03/20 16:23 ciprofloxacin [From Cipro] Allergy Unknown Verified 12/03/20 16:23 Review of Systems ROS Statement: Those systems with pertinent positive or pertinent negative responses have been documented in the HPI. Review of Systems: CONST: Denies fever EYES: Denies blurry vision ENT: Denies nasal congestion C/V: Denies Chest pain RESP: Endorses shortness of breath GI: Denies abdominal pain : Denies dysuria SKIN: Endorses rash under her pannus, history of fungal infection MSK: Denies joint pain. NEURO: Denies headache ROS Other: All systems not noted in ROS Statement are negative. 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, BLEEDING POLPS RESULTING IN ILEOSTOMY History of Any Multi-Drug Resistant Organisms: ESBL, MRSA Date of last positivie culture/infection: 09/03/20 ESBL Klebsiella; MRSA 08/27/16 MDRO Source:: ESBL-Urine; MRSA Coccyx Past Surgical History: Bowel Resection Additional Past Surgical History / Comment(s): 2010 AKA left, ileostomy 1967 Past Anesthesia/Blood Transfusion Reactions: No Reported Reaction Past Psychological History: No Psychological Hx Reported Smoking Status: Current every day smoker Past Alcohol Use History: None Reported Past Drug Use History: None Reported - Past Family History Mother Additional Family Medical History / Comment(s): ENLARGED HEART Father Family Medical History: Hypertension General Exam - General Exam Comments Initial Comments: General: Appears in no acute distress. HEAD: Normal with no signs of head trauma. EYES: PERRLA, EOMI, conjunctiva normal, no discharge. ENT: Hearing grossly intact, normal oropharynx. RESPIRATORY: Patient has crackles in the lung bases as well as some mild the next 20 wheezing in bilateral lung benitez. No tachypnea. Patient is mildly hypoxic to 90% on room air. C/V: Regular rate and rhythm. S1 and S2 auscultated. Patient has 2-3+ pitting edema to the right knee. Patient has an AKA of the left lower extremity. ABD: Abd is soft, nontender, nondistended EXT: Left AKA SKIN: Patient has a small erythematous patch located over the stump of her left AKA that per patient, is improving. This is a cellulitis that is being treated with Bactrim currently. Patient also has erythema under her pannus diffusely, with a history of fungal skin infection that is recurrent at that site. She has chronic venous stasis dermatitis of the right lower extremity as well. NEURO: Alert and oriented 4. No focal deficits. Limitations: physical limitation Course Vital Signs 12/03/20 12/03/20 12/03/20 12:22 15:22 15:25 Temperature 97.7 F Pulse Rate 93 88 86 Respiratory 18 20 Rate Blood Pressure 107/70 103/58 O2 Sat by Pulse 89 L 98 Oximetry 12/03/20 12/03/20 12/03/20 15:29 17:00 19:28 Temperature Pulse Rate 90 82 78 Respiratory 18 Rate Blood Pressure 114/81 O2 Sat by Pulse 100 Oximetry Medical Decision Making - Medical Decision Making Based on the patient's presentation and physical exam, she is likely experiencing primarily in acute heart failure exacerbation in addition to a mild COPD exacerbation. I will suspicion for acute infectious etiology at this time, however we will obtain a COVID-19 swab in addition to cardiac workup consisting of BNP, troponin, chest x-ray, EKG. Due to the patient's hypoxia which is likely secondary to heart failure exacerbation, she will be admitted to the hospital. She'll be connected to continuous cardiac monitoring while she is here in the department. Patient will be started on an aspirin here in the department and given 20 mg IV Lasix. The patient's mild COPD exacerbation, she'll be given 60 mg of by mouth prednisone in addition to DuoNeb breathing treatment. Nystatin powder will be ordered for the patient's fungal dermatitis in the pannus region. She'll be connected to oxygen to maintain oxygen saturations at least 92-94%. Patient was in agreement this plan. Patient's EKG showed no acute signs of ischemia and no acute changes. Chest x- ray revealed interstitial edema likely suggestive of CHF. Laboratory studies were remarkable for a therapeutic INR of 2.4 with Coumadin use. Patient has a hypokalemia which is chronic at 3.2. Patient is mildly hyperglycemic with a glucose of 171. Patient's alk phos is mildly elevated to 175. 2 troponins are negative. BNP is elevated to 2900. Patient is: Negative. On reevaluation, I did discuss with the patient that she is expressing heart failure exacerbation. She will be given to IV Lasix here in the emergency department. We also admitted to the hospital. She was in agreement this plan. As stated before, I will start her on nystatin topical for her suspected fungal infection of her pannus. We will continue her Bactrim for her leg. Patient was in agreement with this plan. I spoke with the admitting team under Dr. Medellin who accepted the patient. I also consult to cardiology to evaluate the patient tomorrow. Patient was therefore admitted in serious condition to telemetry bed. Primary diagnosis is acute hypoxic respiratory failure secondary to acute mild heart failure exacerbation requiring nasal cannula administration. - Lab Data Result diagrams: 12/03/20 14:53 12/03/20 14:53 Lab Results 12/03/20 12/03/20 12/03/20 Range/Units 14:53 14:53 14:53 WBC 6.5 (3.8-10.6) k/uL RBC 6.04 H (3.80-5.40) m/uL Hgb 14.4 (11.4-16.0) gm/dL Hct 47.8 H (34.0-46.0) % MCV 79.1 L (80.0-100.0) fL MCH 23.8 L (25.0-35.0) pg MCHC 30.1 L (31.0-37.0) g/dL RDW 17.5 H (11.5-15.5) % Plt Count 173 (150-450) k/uL MPV 9.1 Neutrophils % 75 % Lymphocytes % 19 % Monocytes % 4 % Eosinophils % 1 % Basophils % 1 % Neutrophils # 4.8 (1.3-7.7) k/uL Lymphocytes # 1.2 (1.0-4.8) k/uL Monocytes # 0.3 (0-1.0) k/uL Eosinophils # 0.1 (0-0.7) k/uL Basophils # 0.0 (0-0.2) k/uL Hypochromasia Marked Anisocytosis Slight Microcytosis Slight PT (9.0-12.0) sec INR (<1.2) APTT (22.0-30.0) sec Sodium 134 L (137-145) mmol/L Potassium 3.2 L (3.5-5.1) mmol/L Chloride 95 L (98-107) mmol/L Carbon Dioxide 30 (22-30) mmol/L Anion Gap 9 mmol/L BUN 12 (7-17) mg/dL Creatinine 1.11 H (0.52-1.04) mg/dL Est GFR (CKD-EPI)AfAm 61 (>60 ml/min/1.73 sqM) Est GFR (CKD-EPI)NonAf 53 (>60 ml/min/1.73 sqM) Glucose 171 H (74-99) mg/dL Plasma Lactic Acid [place] 2.0 (0.7-2.0) mmol/L Calcium 8.8 (8.4-10.2) mg/dL Magnesium 1.7 (1.6-2.3) mg/dL Total Bilirubin 0.7 (0.2-1.3) mg/dL AST 25 (14-36) U/L ALT 10 (4-34) U/L Alkaline Phosphatase 175 H (38-126) U/L Troponin I (0.000-0.034) ng/mL NT-Pro-B Natriuret Pep pg/mL Total Protein 6.1 L (6.3-8.2) g/dL Albumin 3.2 L (3.5-5.0) g/dL Urine Color Urine Appearance (Clear) Urine pH (5.0-8.0) Ur Specific [place] (1.001-1.035) Urine Protein (Negative) Urine Glucose (UA) (Negative) Urine Ketones (Negative) Urine Blood (Negative) Urine Nitrite (Negative) Urine Bilirubin (Negative) Urine Urobilinogen (<2.0) mg/dL Ur Leukocyte Esterase (Negative) Coronavirus (PCR) (Not Detectd) 12/03/20 12/03/20 12/03/20 Range/Units 15:03 15:03 15:03 WBC (3.8-10.6) k/uL RBC (3.80-5.40) m/uL Hgb (11.4-16.0) gm/dL Hct (34.0-46.0) % MCV (80.0-100.0) fL MCH (25.0-35.0) pg MCHC (31.0-37.0) g/dL RDW (11.5-15.5) % Plt Count (150-450) k/uL MPV Neutrophils % % Lymphocytes % % Monocytes % % Eosinophils % % Basophils % % Neutrophils # (1.3-7.7) k/uL Lymphocytes # (1.0-4.8) k/uL Monocytes # (0-1.0) k/uL Eosinophils # (0-0.7) k/uL Basophils # (0-0.2) k/uL Hypochromasia Anisocytosis Microcytosis PT 23.0 H (9.0-12.0) sec INR 2.4 H (<1.2) APTT 33.3 H (22.0-30.0) sec Sodium (137-145) mmol/L Potassium (3.5-5.1) mmol/L Chloride (98-107) mmol/L Carbon Dioxide (22-30) mmol/L Anion Gap mmol/L BUN (7-17) mg/dL Creatinine (0.52-1.04) mg/dL Est GFR (CKD-EPI)AfAm (>60 ml/min/1.73 sqM) Est GFR (CKD-EPI)NonAf (>60 ml/min/1.73 sqM) Glucose (74-99) mg/dL Plasma Lactic Acid [place] (0.7-2.0) mmol/L Calcium (8.4-10.2) mg/dL Magnesium (1.6-2.3) mg/dL Total Bilirubin (0.2-1.3) mg/dL AST (14-36) U/L ALT (4-34) U/L Alkaline Phosphatase (38-126) U/L Troponin I <0.012 (0.000-0.034) ng/mL NT-Pro-B Natriuret Pep 2910 pg/mL Total Protein (6.3-8.2) g/dL Albumin (3.5-5.0) g/dL Urine Color Urine Appearance (Clear) Urine pH (5.0-8.0) Ur Specific [place] (1.001-1.035) Urine Protein (Negative) Urine Glucose (UA) (Negative) Urine Ketones (Negative) Urine Blood (Negative) Urine Nitrite (Negative) Urine Bilirubin (Negative) Urine Urobilinogen (<2.0) mg/dL Ur Leukocyte Esterase (Negative) Coronavirus (PCR) (Not Detectd) 12/03/20 12/03/20 Range/Units 15:25 15:25 WBC (3.8-10.6) k/uL RBC (3.80-5.40) m/uL Hgb (11.4-16.0) gm/dL Hct (34.0-46.0) % MCV (80.0-100.0) fL MCH (25.0-35.0) pg MCHC (31.0-37.0) g/dL RDW (11.5-15.5) % Plt Count (150-450) k/uL MPV Neutrophils % % Lymphocytes % % Monocytes % % Eosinophils % % Basophils % % Neutrophils # (1.3-7.7) k/uL Lymphocytes # (1.0-4.8) k/uL Monocytes # (0-1.0) k/uL Eosinophils # (0-0.7) k/uL Basophils # (0-0.2) k/uL Hypochromasia Anisocytosis Microcytosis PT (9.0-12.0) sec INR (<1.2) APTT (22.0-30.0) sec Sodium (137-145) mmol/L Potassium (3.5-5.1) mmol/L Chloride (98-107) mmol/L Carbon Dioxide (22-30) mmol/L Anion Gap mmol/L BUN (7-17) mg/dL Creatinine (0.52-1.04) mg/dL Est GFR (CKD-EPI)AfAm (>60 ml/min/1.73 sqM) Est GFR (CKD-EPI)NonAf (>60 ml/min/1.73 sqM) Glucose (74-99) mg/dL Plasma Lactic Acid [place] (0.7-2.0) mmol/L Calcium (8.4-10.2) mg/dL Magnesium (1.6-2.3) mg/dL Total Bilirubin (0.2-1.3) mg/dL AST (14-36) U/L ALT (4-34) U/L Alkaline Phosphatase (38-126) U/L Troponin I (0.000-0.034) ng/mL NT-Pro-B Natriuret Pep pg/mL Total Protein (6.3-8.2) g/dL Albumin (3.5-5.0) g/dL Urine Color Colorless Urine Appearance Clear (Clear) Urine pH 5.0 (5.0-8.0) Ur Specific [place] 1.005 (1.001-1.035) Urine Protein Negative (Negative) Urine Glucose (UA) Negative (Negative) Urine Ketones Negative (Negative) Urine Blood Negative (Negative) Urine Nitrite Negative (Negative) Urine Bilirubin Negative (Negative) Urine Urobilinogen <2.0 (<2.0) mg/dL Ur Leukocyte Esterase Negative (Negative) Coronavirus (PCR) Not Detected (Not Detectd) - EKG Data -: EKG Interpreted by Me EKG Comments: 12-lead Electrocardiogram Interpretation Note EKG was reviewed and interpreted by myself. 12-lead ECG performed at 1412 is interpreted by me as revealing atrial fibrillation rate controlled at a rate of 92 beats per minute. [place] appears normal. [place] interval is unobtainable. QRS duration is 166 ms, QTc is 536 ms.. There are diffuse T-wave inversions which are seen on prior EKGs. Patient is a right bundle branch block.. R wave progression across the precordium was satisfactory. By my interpretation this EKG is non-diagnostic for acute ischemia. It shows a chronic right bundle- branch block with chronic atrial fibrillation that is rate controlled as well as chronic lateral T-wave inversions. These are all seen on prior EKGs. Disposition Clinical Impression: Congestive heart failure, Diabetes, Hypokalemia, Acute respiratory failure with hypoxia Disposition: ADMITTED IP TO THIS HOSP Condition: Serious
[2020-12-03] MEDS ORDERED: ASPIRIN 325 MG TAB PO STA (13:09)
[2020-12-03] MEDS ORDERED: FUROSEMIDE 10 MG/ML 2 ML VIAL IV STA ×2 (13:09→19:56)
[2020-12-03] MEDS ORDERED: predniSONE 20 MG TAB PO STA (13:09)
[2020-12-03] MEDS ORDERED: IPRATROPIUM-ALBUTEROL 3 ML NEB INHALATION STA (13:09)
--- NOTE | 2020-12-03 14:35 | XR ---
EXAMINATION TYPE: XR chest 2V DATE OF EXAM: 12/03/2020 COMPARISON: 09/07/2020 TECHNIQUE: PA and lateral views submitted. HISTORY: Shortness of breath FINDINGS: Diffuse interstitial pattern with cardiomegaly and small right-sided pleural effusion. No pneumothora x. Atherosclerotic change of the aorta. Degenerative change of the spine. IMPRESSION: 1. Correlate for CHF otherwise consider interstitial pneumonia.
[2020-12-03 15:00] LABS: Anisocytosis Slight; Basophils % (A) 1 %; Eosinophils # (A) 0.1 k/uL (0-0.7); Eosinophils % (A) 1 %; HCT 47.8 % (34.0-46.0); HGB 14.4 gm/dL (11.4-16.0); Hypochromasia Marked; Lymphocytes # (A) 1.2 k/uL (1.0-4.8); Lymphocytes % (A) 19 %; MCH 23.8 pg (25.0-35.0); MCHC 30.1 g/dL (31.0-37.0); MCV 79.1 fL (80.0-100.0); Mean Platelet Volume 9.1; Microcytosis Slight; Monocytes # (A) 0.3 k/uL (0-1.0); Monocytes % (A) 4 %; Neutrophils # (A) 4.8 k/uL (1.3-7.7); Neutrophils % (A) 75 %; Platelet Count 173 k/uL (150-450); RBC 6.04 m/uL (3.80-5.40); RDW 17.5 % (11.5-15.5); WBC 6.5 k/uL (3.8-10.6)
[2020-12-03 15:15] LABS: Albumin 3.2 g/dL (3.5-5.0); Calcium 8.8 mg/dL (8.4-10.2); Magnesium 1.7 mg/dL (1.6-2.3); Potassium 3.2 mmol/L (3.5-5.1); Total Bilirubin 0.7 mg/dL (0.2-1.3); Total Protein 6.1 g/dL (6.3-8.2)
[2020-12-03 15:23] LABS: INR 2.4 (<1.2); Partial Thromboplastin Time 33.3 sec (22.0-30.0)
[2020-12-03] MEDS: NYSTATIN 100,000 UNIT/GM POWD 15 GM TOPICAL SCH ×2 (15:38→20:40)
[2020-12-03] MEDS ORDERED: IBUPROFEN 400 MG TAB PO PRN (16:20)
[2020-12-03] MEDS ORDERED: ACETAMINOPHEN TAB 325 MG TAB PO PRN (16:20)
[2020-12-03] MEDS ORDERED: NALOXONE 0.4 MG/ML 1 ML VIAL IV PRN (16:20)
[2020-12-03] MEDS ORDERED: CYCLOBENZAPRINE 10 MG TAB PO PRN (16:23)
[2020-12-03] MEDS ORDERED: ALBUTEROL NEBULIZED 2.5 MG/3 ML INHALATION PRN (16:23)
[2020-12-03 17:35] LABS: Appearance,Urine Clear (Clear); Bilirubin,Urine Negative (Negative); Blood,Urine Negative (Negative); Color,Urine Colorless; Glucose,Urine (UA) Negative (Negative); Ketones,Urine Negative (Negative); Leukocyte Esterase,Urine Negative (Negative); Nitrite,Urine Negative (Negative); Protein,Urine Negative (Negative); Specific Gravity,Urine 1.005 (1.001-1.035); Urobilinogen,Urine <2.0 mg/dL (<2.0)
[2020-12-03] MEDS: IPRATROPIUM-ALBUTEROL 3 ML NEB INHALATION SCH (19:28)
[2020-12-03] MEDS: SYMBICORT 160-4.5 MCG INHALER INHALATION SCH (19:28)
[2020-12-03] MEDS ORDERED: IPRATROPIUM-ALBUTEROL 3 ML NEB INHALATION PRN (19:51)
[2020-12-03] MEDS ORDERED: FUROSEMIDE 40 MG TAB PO SCH (20:00)
[2020-12-03 20:41] LABS: Glucose,Whole Blood 147 mg/dL (75-99)
[2020-12-03] MEDS ORDERED: POTASSIUM CHLORIDE ER 20 MEQ TAB.ER PO STA (21:00)
[2020-12-03] MEDS: INSULIN ASPART (NovoLOG) 100 UNIT/ML VIAL SQ SCH (21:24)
[2020-12-03] MEDS: INSULIN DETEMIR (LEVEMIR) 100 UNIT/ML SYR SQ SCH (21:27)
[2020-12-03] MEDS: WARFARIN 2 MG TAB PO SCH (23:50)
[2020-12-03] MEDS: ATORVASTATIN 10 MG TAB PO SCH (23:50)
[2020-12-03] MEDS: acetaZOLAMIDE 250 MG TAB PO SCH (23:50)
[2020-12-04] MEDS: SULFAMETHOX-TMP 800-160MG 1 EACH TAB PO SCH ×3 (01:17→20:10)
[2020-12-04 06:15] LABS: Glucose,Whole Blood 198 mg/dL (75-99)
[2020-12-04] MEDS: PANTOPRAZOLE 40 MG TABLET PO SCH (06:40)
[2020-12-04] MEDS: IPRATROPIUM-ALBUTEROL 3 ML NEB INHALATION SCH ×3 (08:12→20:43)
[2020-12-04] MEDS: SYMBICORT 160-4.5 MCG INHALER INHALATION SCH ×2 (08:12→20:43)
[2020-12-04] MEDS: INSULIN ASPART (NovoLOG) 100 UNIT/ML VIAL SQ SCH ×4 (08:36→19:25)
[2020-12-04] MEDS: NICOTINE 21MG/24HR PATCH TRANSDERM SCH ×2 (08:36→08:40)
[2020-12-04] MEDS: predniSONE 20 MG TAB PO SCH (08:37)
[2020-12-04] MEDS: acetaZOLAMIDE 250 MG TAB PO SCH ×2 (08:37→20:09)
[2020-12-04] MEDS: FERROUS SULFATE 325 MG TAB PO SCH (08:37)
[2020-12-04] MEDS: metOLazone 5 MG TAB PO SCH (08:37)
[2020-12-04] MEDS: FUROSEMIDE 80 MG TAB PO SCH (08:37)
[2020-12-04 08:38] LABS: INR 2.7 (<1.2); Prothrombin Time 26.3 sec (9.0-12.0)
[2020-12-04] MEDS ORDERED: FUROSEMIDE 20 MG TAB PO SCH (09:00)
[2020-12-04] MEDS ORDERED: predniSONE 10 MG TAB PO SCH (09:00)
[2020-12-04 09:54] LABS: Calcium 8.5 mg/dL (8.4-10.2); Potassium 3.9 mmol/L (3.5-5.1)
[2020-12-04 11:43] LABS: Glucose,Whole Blood 334 mg/dL (75-99)
[2020-12-04] MEDS: NYSTATIN 100,000 UNIT/GM POWD 15 GM TOPICAL SCH ×2 (12:40→20:10)
--- NOTE | 2020-12-04 13:06 | P.CRDCN ---
History of Present Illness Consult date: 12/04/20 History of present illness: HISTORY OF PRESENT ILLNESS: This is a 65-year-old female with a past medical history significant for atrial fibrillation, congestive heart failure, chronic kidney disease, left AKA, and nicotine dependence. Patient does not follow with a monotypist. We have been asked to see the patient in consultation for congestive heart failure. Patient examined at the bedside. Patient states she has been feeling short of breath for the last month. She reports increased right lower extremity edema. Patient states she was evaluated by her PCP a couple weeks ago and a 3rd water pill was added to her medication regimen but she is not sure which medication was the one that was added. She states her shortness of breath has significantly improved today. She also reports improvement in lower extremity edema. EKG reveals atrial fibrillation. Right bundle-branch block. Chest xray correlate for CHF otherwise consider interstitial pneumonia Laboratory data: WBC 6.5. Hemoglobin 14.4. Platelet count 173. Sodium 133. Potassium 3.9. BUN 11. Creatinine 1.10. Troponin negative 3. ProBNP 2910. Current home cardiac medications include warfarin 1 mg daily, Lipitor 10 mg daily, Lasix 80 mg daily Most recent echocardiogram obtained in August 2020 revealed ejection fraction 55- 60%. Moderate tricuspid regurgitation. Moderate pulmonary hypertension. REVIEW OF SYSTEMS: At the time of my exam: CONSTITUTIONAL: Denies fever or chills. HEENT: Denies blurred vision, vision changes, or eye pain. Denies hemoptysis CARDIOVASCULAR: Denies chest pain. Denies orthopnea. Denies PND. Denies pal pitations RESPIRATORY: Denies shortness of breath. GASTROINTESTINAL: Denies abdominal pain. Denies nausea or vomiting. HEMATOLOGIC: Denies bleeding disorders. GENITOURINARY: Denies any blood in urine. SKIN: Denies pruitis. Denies rash. PHYSICAL EXAM: VITAL SIGNS: Reviewed. GENERAL: Well-developed in no acute distress. HEENT: Head is normocephalic. Pupils are equal, round. Sclerae anicteric. Mucous membranes of the mouth are moist. Neck supple. No JVD or thyromegaly LUNGS: Respirations even and unlabored. Lungs diminished with expiratory wheezing noted HEART: Regular rate and rhythm. S1 and S2 heard. ABDOMEN: Soft. Nondistended. Nontender. EXTREMITIES: Normal range of motion. No clubbing or cyanosis. Peripheral pulses intact. Left AKA. Trace edema to right lower extremity with chronic discoloration noted NEUROLOGIC: Awake and alert. Oriented x 3. ASSESSMENT: Acute exacerbation of chronic diastolic heart failure Chronic kidney disease Paroxysmal atrial fibrillation History of left AKA Nicotine dependence History of DVT, on anticoagulation with Coumadin COPD Obstructive sleep apnea Hyperlipidemia PLAN: Continue current cardiac medications Anticipate discharge home tomorrow Further recommendations pending patient's course Nurse practitioner note has been reviewed by physician. Signing provider agrees with the documented findings, assessment, and plan of care. Past Medical History Past Medical History: COPD, Diabetes Mellitus, Deep Vein Thrombosis (DVT), Hyperlipidemia, Osteoarthritis (OA), Pneumonia, Renal Disease, Sleep Apnea/CPAP /BIPAP Additional Past Medical History / Comment(s): anemia, dvt to left leg resulting in AKA, BLEEDING POLPS RESULTING IN ILEOSTOMY History of Any Multi-Drug Resistant Organisms: ESBL, MRSA Date of last positivie culture/infection: 09/03/20 ESBL Klebsiella; MRSA 08/27/16 MDRO Source:: ESBL-Urine; MRSA Coccyx Past Surgical History: Bowel Resection Additional Past Surgical History / Comment(s): 2011 AKA left, ileostomy 1967 Past Anesthesia/Blood Transfusion Reactions: No Reported Reaction Past Psychological History: No Psychological Hx Reported Smoking Status: Current every day smoker Past Alcohol Use History: None Reported Past Drug Use History: None Reported - Past Family History Mother Additional Family Medical History / Comment(s): ENLARGED HEART Father Family Medical History: Hypertension Medications and Allergies Home Medications Medication Instructions Recorded Confirmed Type Ferrous Sulfate [Iron (65 MG 325 mg PO DAILY 08/27/16 12/03/20 History Elemental)] Oxybutynin Chloride 10 mg PO DAILY 08/27/16 12/03/20 History Warfarin [Coumadin] 1 mg PO HS 08/27/16 12/03/20 History Atorvastatin [Lipitor] 10 mg PO HS 09/03/20 12/03/20 History Insulin Detemir [Levemir Flextouch 20 units SQ Q48H 09/03/20 12/03/20 History Pen] Pantoprazole Sodium [Protonix] 40 mg PO HS 09/03/20 12/03/20 History Cyclobenzaprine [Flexeril] 10 mg PO TID PRN 09/04/20 12/03/20 History HYDROcodone/APAP 10-325MG [[place] 1 tab PO Q4HR PRN 09/04/20 12/03/20 History 10-325] Potassium Chloride [Klor-Con 20] 40 meq PO DAILY 09/04/20 12/03/20 History Cyclobenzaprine [Flexeril] 10 mg PO HS 12/03/20 12/03/20 History Furosemide [Lasix] 80 mg PO DAILY 12/03/20 12/03/20 History Insulin Aspart [NovoLOG Flexpen] 20 units SQ AC-TID 12/03/20 12/03/20 History Ipratropium-Albuterol Nebulize 3 ml INHALATION RT-TID PRN 12/03/20 12/03/20 History [Duoneb 0.5 mg-3 mg/3 ml Soln] Morphine Sulfate ER [Ms Contin] 15 mg PO TID 12/03/20 12/03/20 History Oxybutynin Chloride [Ditropan] 5 mg PO DAILY@1500 12/03/20 12/03/20 History Sulfamethox-Tmp 800-160Mg [Bactrim 1 tab PO BID 12/03/20 12/03/20 History DS 800-160 mg] metOLazone [Zaroxolyn] 5 mg PO DAILY 12/03/20 12/03/20 History Allergies Allergy/AdvReac Type Severity Reaction Status Date / Time cephalexin [From Keflex] Allergy Rash/Hives Verified 12/03/20 16:23 ciprofloxacin [From Cipro] Allergy Unknown Verified 12/03/20 16:23 Physical Exam Vitals: Vital Signs Temp Pulse Pulse Pulse Resp BP BP 12/04/20 08:26 97.5 F L 70 18 103/69 12/04/20 08:24 68 12/04/20 08:15 12/04/20 08:12 65 12/04/20 04:12 97.5 F L 68 20 98/65 12/03/20 23:23 97.8 F 70 19 91/57 12/03/20 22:40 97.5 F L 74 20 98/56 12/03/20 19:28 78 12/03/20 17:00 82 18 114/81 12/03/20 15:29 90 12/03/20 15:25 86 20 103/58 12/03/20 15:22 88 12/03/20 12:22 97.7 F 93 18 107/70 Pulse Ox 12/04/20 08:26 95 12/04/20 08:24 12/04/20 08:15 92 L 12/04/20 08:12 12/04/20 04:12 95 12/03/20 23:23 96 12/03/20 22:40 100 12/03/20 19:28 12/03/20 17:00 100 12/03/20 15:29 12/03/20 15:25 98 12/03/20 15:22 12/03/20 12:22 89 L Intake and Output 12/03/20 12/04/20 12/04/20 22:59 06:59 14:59 Intake Total 240 Output Total 300 Balance -300 240 Intake: Oral 240 Output: Urine 300 Other: Voiding Method External Catheter External Catheter Weight 137.438 kg 112 kg Results 12/03/20 14:53 12/04/20 07:44 Cardiac Enzymes 12/03/20 12/03/20 12/03/20 Range/Units 14:53 15:03 18:06 AST 25 (14-36) U/L Troponin I <0.012 <0.012 (0.000-0.034) ng/mL 12/03/20 Range/Units 21:12 AST (14-36) U/L Troponin I <0.012 (0.000-0.034) ng/mL Coagulation 12/03/20 Range/Units 15:03 PT 23.0 H (9.0-12.0) sec APTT 33.3 H (22.0-30.0) sec CBC 12/03/20 Range/Units 14:53 WBC 6.5 (3.8-10.6) k/uL RBC 6.04 H (3.80-5.40) m/uL Hgb 14.4 (11.4-16.0) gm/dL Hct 47.8 H (34.0-46.0) % Plt Count 173 (150-450) k/uL Comprehensive Metabolic Panel 12/03/20 Range/Units 14:53 Sodium 134 L (137-145) mmol/L Potassium 3.2 L (3.5-5.1) mmol/L Chloride 95 L (98-107) mmol/L Carbon Dioxide 30 (22-30) mmol/L BUN 12 (7-17) mg/dL Creatinine 1.11 H (0.52-1.04) mg/dL Glucose 171 H (74-99) mg/dL Calcium 8.8 (8.4-10.2) mg/dL AST 25 (14-36) U/L ALT 10 (4-34) U/L Alkaline Phosphatase 175 H (38-126) U/L Total Protein 6.1 L (6.3-8.2) g/dL Albumin 3.2 L (3.5-5.0) g/dL Current Medications Generic Name Dose Route Start Last Admin Trade Name Freq PRN Reason Stop Dose Admin Acetaminophen 650 mg 12/03/20 16:20 Acetaminophen Tab 325 Mg Tab PO Q6HR PRN Mild Pain or Fever > 100.5 Acetazolamide 250 mg 12/03/20 21:00 12/03/20 23:50 Acetazolamide 250 Mg Tab PO 250 mg BID LAWSON Administration Albuterol Sulfate 2.5 mg 12/03/20 16:23 Albuterol Nebulized 2.5 Mg/3 Ml INHALATION RT-Q4H PRN Shortness Of Breath Albuterol/Ipratropium 3 ml 12/03/20 20:00 12/04/20 08:12 Ipratropium-Albuterol 3 Ml Neb INHALATION 3 ml RT-TID LAWSON Administration Albuterol/Ipratropium 3 ml 12/03/20 19:51 Ipratropium-Albuterol 3 Ml Neb INHALATION RT-TID PRN Shortness Of Breath Atorvastatin Calcium 10 mg 12/03/20 21:00 12/03/20 23:50 Atorvastatin 10 Mg Tab PO 10 mg HS LAWSON Administration Budesonide/Formoterol Fumarate 1 puff 12/03/20 20:00 12/04/20 08:12 Symbicort 160-4.5 Mcg Inhaler INHALATION 1 puff RT-BID LAWSON Administration Cyclobenzaprine HCl 10 mg 12/03/20 16:23 Cyclobenzaprine 10 Mg Tab PO TID PRN Muscle Spasm Ferrous Sulfate 325 mg 12/04/20 09:00 Ferrous Sulfate 325 Mg Tab PO DAILY LAW[facility] Furosemide 80 mg 12/04/20 09:00 Furosemide 80 Mg Tab PO DAILY [facility] Ibuprofen 400 mg 12/03/20 16:20 Ibuprofen 400 Mg Tab PO Q6HR PRN Mild Pain or Fever > 100.5 Insulin Aspart 20 unit 12/04/20 07:30 Insulin Aspart (Novolog) 100 Unit/Ml Vial SQ AC-TID LAWSON Insulin Detemir 30 unit 12/03/20 21:00 12/03/20 21:27 Insulin Detemir (Levemir) 100 Unit/Ml Syr SQ 30 unit HS LAWSON Administration Ketorolac Tromethamine 15 mg 12/03/20 16:20 Ketorolac 15 Mg/Ml 1 Ml Vial IVP 12/06/20 16:22 Q6HR PRN Moderate Pain Metolazone 5 mg 12/04/20 09:00 Metolazone 5 Mg Tab PO DAILY [facility] Miscellaneous Information 0 each 12/03/20 16:33 Warfarin Per Pharmacy MISCELLANE DIRECTED PRN PHARMACY DOSING WARFARIN Naloxone HCl 0.2 mg 12/03/20 16:20 Naloxone 0.4 Mg/Ml 1 Ml Vial IV Q2M PRN Opioid Reversal Nicotine 1 patch 12/04/20 09:00 Nicotine 21mg/24hr Patch TRANSDERM DAILY [facility] Nystatin 1 applic 12/03/20 13:15 12/03/20 20:40 Nystatin 100,000 Unit/Gm Powd 15 Gm TOPICAL 1 applic BID [facility] Administration Protocol Oxybutynin Chloride 5 mg 12/04/20 15:00 Oxybutynin Chloride 5 Mg Tab PO DAILY@1500 [facility] Pantoprazole Sodium 40 mg 12/04/20 07:30 12/04/20 06:40 Pantoprazole 40 Mg Tablet PO 40 mg AC-BRKFST [facility] Administration Prednisone 40 mg 12/04/20 09:00 Prednisone 20 Mg Tab PO DAILY [facility] Trimethoprim/Sulfamethoxazole 1 each 12/03/20 21:00 12/04/20 01:17 Sulfamethox-Tmp 800-160mg 1 Each Tab PO Not Given BID [facility] Warfarin Sodium 2 mg 12/03/20 21:00 12/03/20 23:50 Warfarin 2 Mg Tab PO 2 mg HS [facility] Administration Protocol Intake and Output 12/03/20 12/04/20 12/04/20 22:59 06:59 14:59 Intake Total 240 Output Total 300 Balance -300 240 Intake: Oral 240 Output: Urine 300 Other: Voiding Method External Catheter External Catheter Weight 137.438 kg 112 kg 12/03/20 14:53 12/03/20 14:53
[2020-12-04] MEDS: KETOROLAC 15 MG/ML 1 ML VIAL IVP PRN ×2 (13:56→20:10)
[2020-12-04] MEDS ORDERED: OXYBUTYNIN CHLORIDE 5 MG TAB PO SCH (15:00)
[2020-12-04 17:18] LABS: Glucose,Whole Blood 210 mg/dL (75-99)
[2020-12-04 19:50] LABS: Glucose,Whole Blood 131 mg/dL (75-99)
[2020-12-04] MEDS: WARFARIN 2 MG TAB PO SCH (20:09)
[2020-12-04] MEDS: ATORVASTATIN 10 MG TAB PO SCH (20:10)
[2020-12-04] MEDS: INSULIN DETEMIR (LEVEMIR) 100 UNIT/ML SYR SQ SCH (20:10)
--- NOTE | 2020-12-04 23:11 | P.HPIM ---
History of Present Illness H&P Date: 12/04/20 Chief Complaint: Leg swelling Patient is a 65-year-old female with a known history of COPD, diabetes type 2, hyperlipidemia, osteoarthritis, obstructive sleep apnea on CPAP, history of DVT of the left leg resulting in AKA, history of bleeding polyps resulting in ileostomy and chronic CHF and abnormal to medical problems presents to ER with complaints of worsening swelling in the right lower extremity and left thigh region. Patient has been having increased swelling for the past 1 month. She was also having shortness of breath. Patient has been taking diuretics as per her primary care physician recommendations. Patient otherwise presents to ER due to worsening swelling. She has been having exertional dyspnea and orthopnea and fatigue. Denies any PND. Patient was also being treated for left lower extremity cellulitis and is currently on Bactrim. Denied any complaints of fever or chills. No chest pain. Patient does have cough without sputum production. Chest x-ray showed correlate for CHF otherwise consider interstitial pneumonia. Diffuse interstitial pattern with cardiomegaly and small right-sided pleural effusion. EKG showed atrial fibrillation with heart rate 92 Laboratory data showed WBC 6.4 hemoglobin 14.4 MCV 79.1 and platelets 173 INR 2.4 Sodium 134 potassium 3.2 chloride 95 BUN 12 and creatinine 1.11 Albumin 3.2 proBNP 2910 Troponin x2 - Urinalysis is negative for infection. Review of Systems Constitutional: Patient denies any fever or chills . No generalized weakness or weight loss. Abdomen: Patient denied nausea vomiting and diarrhea and abdominal pain. Cardiovascular: Patient does have worsening lower extremity swelling and shortness of breath. No chest pain or palpitations. Respiratory: patient denied any cough or sputum production. No shortness of breath Neurologic: Patient denied any numbness or tingling headache. Musculoskeletal: Patient denies any complaints of joint swelling or deformity. Skin: Negative Psychiatric: Negative Endocrine: No heat or cold intolerance. No recent weight gain. Genitourinary: No dysuria or hematuria. All other 14 point ROS negative except the above 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, BLEEDING POLPS RESULTING IN ILEOSTOMY History of Any Multi-Drug Resistant Organisms: ESBL, MRSA Date of last positivie culture/infection: 09/03/20 ESBL Klebsiella; MRSA 08/27/16 MDRO Source:: ESBL-Urine; MRSA Coccyx Past Surgical History: Bowel Resection Additional Past Surgical History / Comment(s): 2010 AKA left, ileostomy 1967 Past Anesthesia/Blood Transfusion Reactions: No Reported Reaction Past Psychological History: No Psychological Hx Reported Smoking Status: Current every day smoker Past Alcohol Use History: None Reported Past Drug Use History: None Reported - Past Family History Mother Additional Family Medical History / Comment(s): ENLARGED HEART Father Family Medical History: Hypertension Medications and Allergies Home Medications Medication Instructions Recorded Confirmed Type Ferrous Sulfate [Iron (65 MG 325 mg PO DAILY 08/27/16 12/03/20 History Elemental)] Oxybutynin Chloride 10 mg PO DAILY 08/27/16 12/03/20 History Warfarin [Coumadin] 1 mg PO HS 08/27/16 12/03/20 History Atorvastatin [Lipitor] 10 mg PO HS 09/03/20 12/03/20 History Insulin Detemir [Levemir Flextouch 20 units SQ Q48H 09/03/20 12/03/20 History Pen] Pantoprazole Sodium [Protonix] 40 mg PO HS 09/03/20 12/03/20 History Cyclobenzaprine [Flexeril] 10 mg PO TID PRN 09/04/20 12/03/20 History HYDROcodone/APAP 10-325MG [[place] 1 tab PO Q4HR PRN 09/04/20 12/03/20 History 10-325] Potassium Chloride [Klor-Con 20] 40 meq PO DAILY 09/04/20 12/03/20 History Cyclobenzaprine [Flexeril] 10 mg PO HS 12/03/20 12/03/20 History Furosemide [Lasix] 80 mg PO DAILY 12/03/20 12/03/20 History Insulin Aspart [NovoLOG Flexpen] 20 units SQ AC-TID 12/03/20 12/03/20 History Ipratropium-Albuterol Nebulize 3 ml INHALATION RT-TID PRN 12/03/20 12/03/20 History [Duoneb 0.5 mg-3 mg/3 ml Soln] Morphine Sulfate ER [Ms Contin] 15 mg PO TID 12/03/20 12/03/20 History Oxybutynin Chloride [Ditropan] 5 mg PO DAILY@1500 12/03/20 12/03/20 History Sulfamethox-Tmp 800-160Mg [Bactrim 1 tab PO BID 12/03/20 12/03/20 History DS 800-160 mg] metOLazone [Zaroxolyn] 5 mg PO DAILY 12/03/20 12/03/20 History Allergies Allergy/AdvReac Type Severity Reaction Status Date / Time cephalexin [From Keflex] Allergy Rash/Hives Verified 12/03/20 16:23 ciprofloxacin [From Cipro] Allergy Unknown Verified 12/03/20 16:23 Physical Exam Vitals: Vital Signs Temp Pulse Pulse Pulse Resp BP BP 12/04/20 11:39 68 12/04/20 11:31 74 12/04/20 10:45 64 18 111/55 12/04/20 08:26 97.5 F L 70 18 103/69 12/04/20 08:25 18 12/04/20 08:24 68 12/04/20 08:15 12/04/20 08:12 65 12/04/20 04:12 97.5 F L 68 20 98/65 12/03/20 23:23 97.8 F 70 19 91/57 12/03/20 22:40 97.5 F L 74 20 98/56 12/03/20 19:28 78 12/03/20 17:00 82 18 114/81 12/03/20 15:29 90 12/03/20 15:25 86 20 103/58 12/03/20 15:22 88 12/03/20 12:22 97.7 F 93 18 107/70 Pulse Ox 12/04/20 11:39 12/04/20 11:31 12/04/20 10:45 98 12/04/20 08:26 95 12/04/20 08:25 12/04/20 08:24 12/04/20 08:15 92 L 12/04/20 08:12 12/04/20 04:12 95 12/03/20 23:23 96 12/03/20 22:40 100 12/03/20 19:28 12/03/20 17:00 100 12/03/20 15:29 12/03/20 15:25 98 12/03/20 15:22 12/03/20 12:22 89 L Intake and Output 12/03/20 12/04/20 12/04/20 22:59 06:59 14:59 Intake Total 240 Output Total 300 Balance -300 240 Intake: Oral 240 Output: Urine 300 Other: Voiding Method External Catheter External Catheter External Catheter Weight 137.438 kg 112 kg PHYSICAL EXAMINATION: Patient is lying in the bed comfortably, no acute distress, awake alert and oriented.. HEENT: Normocephalic. Neck is supple. Pupils reactive. Nostrils clear. Oral cavity is moist. Ears reveal no drainage. Neck reveals no JVD, carotid bruits, or thyromegaly. CHEST EXAMINATION: Trachea is central. Symmetrical expansion.Bilateral diffuse wheezing and scattered rhonchi. Nonlabored breathing.. CARDIAC: Normal S1, S2 with no gallops. No murmurs ABDOMEN: Soft. Bowel sounds normal. No organomegaly. No abdominal bruits. Extremities: Right lower extremity 3+ edema. Left above-knee amputation. No clubbing or cyanosis Neurologically awake, alert, oriented x3 with well-coordinated movements. No focal deficits noted Skin: No rash or skin lesions. Psychiatric: Coperative. Nonsuicidal Musculoskeletal: No joint swelling or deformity. Normal range of motion. Results CBC & Chem 7: 12/03/20 14:53 12/04/20 07:44 Labs: Abnormal Lab Results - Last 24 Hours (Table) 12/03/20 12/03/20 12/03/20 Range/Units 14:53 14:53 15:03 RBC 6.04 H (3.80-5.40) m/uL Hct 47.8 H (34.0-46.0) % MCV 79.1 L (80.0-100.0) fL MCH 23.8 L (25.0-35.0) pg MCHC 30.1 L (31.0-37.0) g/dL RDW 17.5 H (11.5-15.5) % PT 23.0 H (9.0-12.0) sec INR 2.4 H (<1.2) APTT 33.3 H (22.0-30.0) sec Sodium 134 L (137-145) mmol/L Potassium 3.2 L (3.5-5.1) mmol/L Chloride 95 L (98-107) mmol/L Creatinine 1.11 H (0.52-1.04) mg/dL Glucose 171 H (74-99) mg/dL POC Glucose (mg/dL) (75-99) mg/dL Alkaline Phosphatase 175 H (38-126) U/L Total Protein 6.1 L (6.3-8.2) g/dL Albumin 3.2 L (3.5-5.0) g/dL 12/03/20 12/04/20 12/04/20 Range/Units 20:39 06:08 07:44 RBC (3.80-5.40) m/uL Hct (34.0-46.0) % MCV (80.0-100.0) fL MCH (25.0-35.0) pg MCHC (31.0-37.0) g/dL RDW (11.5-15.5) % PT 26.3 H (9.0-12.0) sec INR 2.7 H (<1.2) APTT (22.0-30.0) sec Sodium (137-145) mmol/L Potassium (3.5-5.1) mmol/L Chloride (98-107) mmol/L Creatinine (0.52-1.04) mg/dL Glucose (74-99) mg/dL POC Glucose (mg/dL) 147 H 198 H (75-99) mg/dL Alkaline Phosphatase (38-126) U/L Total Protein (6.3-8.2) g/dL Albumin (3.5-5.0) g/dL 12/04/20 12/04/20 Range/Units 07:44 11:42 RBC (3.80-5.40) m/uL Hct (34.0-46.0) % MCV (80.0-100.0) fL MCH (25.0-35.0) pg MCHC (31.0-37.0) g/dL RDW (11.5-15.5) % PT (9.0-12.0) sec INR (<1.2) APTT (22.0-30.0) sec Sodium 133 L (137-145) mmol/L Potassium (3.5-5.1) mmol/L Chloride 93 L (98-107) mmol/L Creatinine 1.10 H (0.52-1.04) mg/dL Glucose 201 H (74-99) mg/dL POC Glucose (mg/dL) 334 H (75-99) mg/dL Alkaline Phosphatase (38-126) U/L Total Protein (6.3-8.2) g/dL Albumin (3.5-5.0) g/dL Thrombosis Risk Factor Assmnt - DVT/VTE Prophylaxis DVT/VTE Prophylaxis: Pharmacologic Prophylaxis ordered - Choose All That Apply Each Factor Represents 1 point: Obesity (BMI >25) Each Risk Factor Represents 2 Points: Age 61-74 years Each Risk Factor Represents 3 Points: History of DVT/PE Thrombosis Risk Factor Assessment Total Risk Factor Score: 6 Thrombosis Risk Factor Assessment Level: High Risk Assessment and Plan Assessment: Worsening bilateral lower extremity swelling and shortness of breath due to CHF and COPD. Acute on chronic CHF with diastolic dysfunction. Acute COPD exacerbation Diabetes type 2 with hyperglycemia insulin-dependent. Hypokalemia Hypervolemic hyponatremia Morbid obesity with a BMI 41.1 Paroxysmal atrial fibrillation on anticoagulation with Coumadin. History of left AKA due to DVT Obstructive sleep apnea not on CPAP Hyperlipidemia DVT prophylaxis patient is already on Coumadin Coumadin monitoring Plan: Patient was given IV Lasix in the ER. Continue with Lasix 80 mg daily. Patient is also on Zaroxolyn. Continue with the duo nebs and prednisone 40 mg daily. Oxygen supplementation as needed. Continue with home medications and follow-up closely. Titrate insulin regimen due to hyperglycemia. Smoking cessation has been counseled extensively. Cardiology is on board. Continue to follow closely. Monitor renal function. Prognosis is guarded with multiple medical problems and comorbid conditions. Time with Patient: Greater than 30
[2020-12-05] MEDS: PANTOPRAZOLE 40 MG TABLET PO SCH (06:52)
[2020-12-05 06:53] LABS: Glucose,Whole Blood 204 mg/dL (75-99)
[2020-12-05] MEDS: SYMBICORT 160-4.5 MCG INHALER INHALATION SCH (07:57)
[2020-12-05] MEDS: IPRATROPIUM-ALBUTEROL 3 ML NEB INHALATION SCH ×2 (07:57→12:29)
[2020-12-05 08:11] LABS: Anisocytosis Slight; Basophils % (A) 0 %; Eosinophils % (A) 0 %; HCT 46.4 % (34.0-46.0); Hypochromasia Marked; Lymphocytes # (A) 0.7 k/uL (1.0-4.8); Lymphocytes % (A) 9 %; MCH 23.4 pg (25.0-35.0); MCV 83.4 fL (80.0-100.0); Mean Platelet Volume 9.7; Monocytes # (A) 0.3 k/uL (0-1.0); Monocytes % (A) 3 %; Neutrophils # (A) 7.4 k/uL (1.3-7.7); Neutrophils % (A) 87 %; Platelet Count 191 k/uL (150-450); RBC 5.56 m/uL (3.80-5.40); RDW 17.5 % (11.5-15.5); WBC 8.5 k/uL (3.8-10.6)
[2020-12-05] MEDS: acetaZOLAMIDE 250 MG TAB PO SCH (08:12)
[2020-12-05] MEDS: FUROSEMIDE 80 MG TAB PO SCH (08:12)
[2020-12-05] MEDS: metOLazone 5 MG TAB PO SCH (08:12)
[2020-12-05] MEDS: predniSONE 20 MG TAB PO SCH (08:12)
[2020-12-05] MEDS: INSULIN ASPART (NovoLOG) 100 UNIT/ML VIAL SQ SCH ×2 (08:12→12:07)
[2020-12-05] MEDS: FERROUS SULFATE 325 MG TAB PO SCH (08:12)
[2020-12-05] MEDS: SULFAMETHOX-TMP 800-160MG 1 EACH TAB PO SCH (08:12)
[2020-12-05] MEDS: NYSTATIN 100,000 UNIT/GM POWD 15 GM TOPICAL SCH (08:13)
[2020-12-05 08:17] LABS: Potassium 3.1 mmol/L (3.5-5.1)
[2020-12-05 08:24] LABS: INR 3.2 (<1.2); Prothrombin Time 30.7 sec (9.0-12.0)
[2020-12-05] MEDS: NICOTINE 21MG/24HR PATCH TRANSDERM SCH (09:41)
[2020-12-05 09:44] VITALS: RESP 16
[2020-12-05] MEDS ORDERED: POTASSIUM CHLORIDE ER 20 MEQ TAB.ER PO STA ×2 (10:39→13:49)
[2020-12-05] MEDS ORDERED: POTASSIUM CHLORIDE 20 MEQ in WATER FOR INJECTION 1 100ML.BAG IVPB STA (10:40)
--- NOTE | 2020-12-05 11:59 | P.PN ---
Subjective Progress Note Date: 12/05/20 HISTORY OF PRESENT ILLNESS: This is a 65-year-old female with a past medical history significant for atrial fibrillation, congestive heart failure, chronic kidney disease, left AKA, and nicotine dependence. Patient does not follow with a cath lab nurse. We have been asked to see the patient in consultation for congestive heart failure. Patient examined at the bedside. Patient states she has been feeling short of breath for the last month. She reports increased right lower extremity edema. Patient states she was evaluated by her PCP a couple weeks ago and a 3rd water pill was added to her medication regimen but she is not sure which medication was the one that was added. She states her shortness of breath has significantly improved today. She also reports improvement in lower extremity edema. EKG reveals atrial fibrillation. Right bundle-branch block. Chest xray correlate for CHF otherwise consider interstitial pneumonia Laboratory data: WBC 6.5. Hemoglobin 14.4. Platelet count 173. Sodium 133. Potassium 3.9. BUN 11. Creatinine 1.10. Troponin negative 3. ProBNP 2910. Current home cardiac medications include warfarin 1 mg daily, Lipitor 10 mg daily, Lasix 80 mg daily Most recent echocardiogram obtained in August 2020 revealed ejection fraction 55- 60%. Moderate tricuspid regurgitation. Moderate pulmonary hypertension. 12/05/2020 Patient examined this morning at the bedside. Patient denies chest pain or pressure. Patient denies shortness of breath. Blood pressure 111/65. Potassium 3.1. PHYSICAL EXAM: VITAL SIGNS: Reviewed. GENERAL: Well-developed in no acute distress. HEENT: Head is normocephalic. Pupils are equal, round. Sclerae anicteric. Mucous membranes of the mouth are moist. Neck supple. No JVD or thyromegaly LUNGS: Respirations even and unlabored. Lungs diminished. HEART: Regular rate and rhythm. S1 and S2 heard. ABDOMEN: Soft. Nondistended. Nontender. EXTREMITIES: Normal range of motion. No clubbing or cyanosis. Peripheral pulses intact. Left AKA. Trace edema to right lower extremity with chronic discoloration noted NEUROLOGIC: Awake and alert. Oriented x 3. ASSESSMENT: Acute exacerbation of chronic diastolic heart failure Chronic kidney disease Paroxysmal atrial fibrillation History of left AKA Nicotine dependence History of DVT, on anticoagulation with Coumadin COPD Obstructive sleep apnea Hyperlipidemia Hypokalemia PLAN: Continue current cardiac medications Replace potassium Patient is stable from a cardiac standpoint for discharge today Patient to follow up outpatient with her PCP Nurse practitioner note has been reviewed by physician. Signing provider agrees with the documented findings, assessment, and plan of care. Objective - Vital Signs Vital signs: Vital Signs Temp 97.8 F 12/05/20 08:00 Pulse 76 12/05/20 08:11 Resp 16 12/05/20 08:00 BP 111/65 12/05/20 08:00 Pulse Ox 93 L 12/05/20 08:00 Intake & Output 12/04/20 12/05/20 12/05/20 18:59 06:59 18:59 Intake Total 360 480 Output Total 1550 200 200 Balance -1190 -200 280 Weight 117.5 kg Intake: Oral 360 480 Output: Urine 1100 200 Stool 450 200 Other: Voiding Method External Catheter External Catheter External Catheter # Bowel Movements 1 - Labs CBC & Chem 7: 12/05/20 07:28 12/05/20 07:28 Labs: Abnormal Lab Results - Last 24 Hours (Table) 12/04/20 12/04/20 12/05/20 Range/Units 16:55 19:47 06:52 RBC (3.80-5.40) m/uL Hct (34.0-46.0) % MCH (25.0-35.0) pg MCHC (31.0-37.0) g/dL RDW (11.5-15.5) % Lymphocytes # (1.0-4.8) k/uL PT (9.0-12.0) sec INR (<1.2) Sodium (137-145) mmol/L Potassium (3.5-5.1) mmol/L Chloride (98-107) mmol/L Carbon Dioxide (22-30) mmol/L BUN (7-17) mg/dL Creatinine (0.52-1.04) mg/dL Glucose (74-99) mg/dL POC Glucose (mg/dL) 210 H 131 H 204 H (75-99) mg/dL 12/05/20 12/05/20 12/05/20 Range/Units 07:28 07:28 07:28 RBC 5.56 H (3.80-5.40) m/uL Hct 46.4 H (34.0-46.0) % MCH 23.4 L (25.0-35.0) pg MCHC 28.0 L (31.0-37.0) g/dL RDW 17.5 H (11.5-15.5) % Lymphocytes # 0.7 L (1.0-4.8) k/uL PT 30.7 H (9.0-12.0) sec INR 3.2 H (<1.2) Sodium 136 L (137-145) mmol/L Potassium 3.1 L (3.5-5.1) mmol/L Chloride 91 L (98-107) mmol/L Carbon Dioxide 32 H (22-30) mmol/L BUN 19 H (7-17) mg/dL Creatinine 1.33 H (0.52-1.04) mg/dL Glucose 174 H (74-99) mg/dL POC Glucose (mg/dL) (75-99) mg/dL
[2020-12-05 12:02] VITALS: BP 113/67; TEMP 97.6
[2020-12-05 12:09] LABS: Glucose,Whole Blood 70 mg/dL (75-99)
[2020-12-05 12:11] LABS: Glucose,Whole Blood 78 mg/dL (75-99)
[2020-12-05 14:25] VITALS: PULSE 72
[2020-12-05] MEDS ORDERED: WARFARIN 0.5 MG TAB PO ONE (21:00)
== END 2020-12-05 16:39 | disposition home or self-care (01) ==
LOC: EC 12:20 → 6NMEDSUR 16:20 → 3SCARD 22:32
PROVIDERS: ADMIT Internal Medicine; ATTEND Internal Medicine
DX: I50.33 Acute on chronic diastolic (congestive) heart failure (principal); J44.1 Chronic obstructive pulmonary disease with (acute) exacerbation; J96.01 Acute respiratory failure with hypoxia; E11.22 Type 2 diabetes mellitus with diabetic chronic kidney disease; E11.65 Type 2 diabetes mellitus with hyperglycemia; E66.01 Morbid (severe) obesity due to excess calories; E78.5 Hyperlipidemia, unspecified; E87.1 Hypo-osmolality and hyponatremia; B36.9 Superficial mycosis, unspecified; E87.6 Hypokalemia; F17.200 Nicotine dependence, unspecified, uncomplicated; G47.33 Obstructive sleep apnea (adult) (pediatric); L03.116 Cellulitis of left lower limb; I45.10 Unspecified right bundle-branch block; I48.0 Paroxysmal atrial fibrillation; Z20.822 Contact with and (suspected) exposure to COVID-19; N18.9 Chronic kidney disease, unspecified; Z68.41 Body mass index [BMI] 40.0-44.9, adult; Z79.01 Long term (current) use of anticoagulants; Z79.4 Long term (current) use of insulin; Z79.899 Other long term (current) drug therapy; Z82.49 Family history of ischemic heart disease and other diseases of the circulatory system; Z86.718 Personal history of other venous thrombosis and embolism; Z89.612 Acquired absence of left leg above knee
CPT/HCPCS: 96376 ×2; 96375; 96374; 99285; 36415; 94640 ×6; 94760; 93005; 83880; 80053; 80048 ×2; 83605; 83735; 84484; 85025 ×2; 85610 ×3; 85730; 81003; 87635; 71046; G0378 ×5; J1940; J1885; J7512 ×3

== ENCOUNTER 2022-01-28 03:42 | Inpatient (IN) | payer MEDICARE, OTHER ==
[2022-01-28] MEDS ORDERED: SODIUM CHLORIDE 0.9% 500 ML 500 ML IV STA ×2 (04:00→04:37)
[2022-01-28] MEDS ORDERED: IPRATROPIUM-ALBUTEROL 3 ML NEB INHALATION STA ×2 (04:02→04:03)
[2022-01-28] MEDS ORDERED: methylPREDNISolone SOD SUCCI 125 MG/2 ML VIAL IV STA (04:02)
[2022-01-28] MEDS ORDERED: PANTOPRAZOLE 40 MG/10 ML VIAL IVP STA (04:03)
--- NOTE | 2022-01-28 04:10 | ED ---
General Adult HPI - General Chief complaint: GI Bleed Stated complaint: Blood in Ostomy Bag Time Seen by Provider: 01/28/22 03:57 Source: patient, EMS, RN notes reviewed, old records reviewed Mode of arrival: EMS Limitations: no limitations - History of Present Illness Initial comments: Patient is a 66-year-old female with past medical history remarkable for cancer, COPD, diabetes, DVT on Coumadin, left leg AKA who presents emergency Department complaining of bleeding from her ostomy. Has noticed since approximately 6 or 7 PM last night that she is having bleeding from her ostomy site. Has noticed darker red blood in her ostomy bag. Is complaining of somewhat generalized abdominal discomfort. Denies any nausea or vomiting. Denies any change in her stool consistency. States this has happened previously and required cauterization. Is unknown what her previous INR was. Denies chest pain but states she is wheezy. Denies upper respiratory symptoms. Denies cough or fevers. Presents for further evaluation at this time.She states she did fill her ostomy bag twice at home with blood prior to arrival.States the blood seems to be coming from outside of the ostomy, not with her stool. Does have a history of ostomy bleed previously that required electrocautery. - Related Data Home Medications Medication Instructions Recorded Confirmed Ferrous Sulfate [Iron (65 MG 325 mg PO DAILY 08/27/16 01/28/22 Elemental)] Oxybutynin Chloride 10 mg PO DAILY 08/27/16 01/28/22 Warfarin [Coumadin] 1 dose PO HS 08/27/16 01/28/22 Atorvastatin [Lipitor] 10 mg PO HS 09/03/20 01/28/22 Insulin Detemir [Levemir Flextouch 30 units SQ BID 09/03/20 01/28/22 Pen] Pantoprazole Sodium [Protonix] 40 mg PO HS 09/03/20 01/28/22 Cyclobenzaprine [Flexeril] 10 mg PO BID PRN 09/04/20 01/28/22 HYDROcodone/APAP 10-325MG [[place] 1 tab PO Q4-6H PRN 09/04/20 01/28/22 10-325] Potassium Chloride [Klor-Con 20] 40 meq PO DAILY 09/04/20 01/28/22 Cyclobenzaprine [Flexeril] 10 mg PO HS 12/03/20 01/28/22 Furosemide [Lasix] 80 mg PO DAILY 12/03/20 01/28/22 Insulin Aspart [NovoLOG Flexpen] 25 units SQ AC-TID 12/03/20 01/28/22 Ipratropium-Albuterol Nebulize 3 ml INHALATION RT-TID PRN 12/03/20 01/28/22 [Duoneb 0.5 mg-3 mg/3 ml Soln] Morphine Sulfate ER [Ms Contin] 15 mg PO HS 12/03/20 01/28/22 Oxybutynin Chloride [Ditropan] 5 mg PO DAILY@1500 12/03/20 01/28/22 metOLazone [Zaroxolyn] 5 mg PO DAILY PRN 12/03/20 01/28/22 Ergocalciferol [Vitamin D2 (1250 1,250 mcg PO WE 01/28/22 01/28/22 Mcg = 58279 Iu)] Levothyroxine Sodium [Synthroid] 50 mcg PO AC-BRKFST 01/28/22 01/28/22 Morphine Sulfate ER [Ms Contin] 15 mg PO BID PRN 01/28/22 01/28/22 Potassium Chloride [Klor-Con M20] 20 meq PO HS 01/28/22 01/28/22 Allergies Allergy/AdvReac Type Severity Reaction Status Date / Time cephalexin [From Keflex] Allergy Rash/Hives Verified 01/28/22 08:26 ciprofloxacin [From Cipro] Allergy Unknown Verified 01/28/22 08:26 ibuprofen AdvReac Rash/Hives Verified 01/28/22 08:26 Review of Systems ROS Statement: Those systems with pertinent positive or pertinent negative responses have been documented in the HPI. Review of Systems: CONST: Denies fever EYES: Denies blurry vision ENT: Denies nasal congestion C/V: Denies Chest pain RESP: Denies shortness of breath GI: Endorses bleeding from ostomy site : Denies dysuria SKIN: Denies rash. MSK: Denies joint pain. NEURO: Denies headache ROS Other: All systems not noted in ROS Statement are negative. Past Medical History Past Medical History: Cancer, COPD, Diabetes Mellitus, Deep Vein Thrombosis (DVT), Hyperlipidemia, Osteoarthritis (OA), Pneumonia, Renal Disease, Sleep Apnea/CPAP/BIPAP Additional Past Medical History / Comment(s): anemia, dvt to left leg resulting in AKA, History of Any Multi-Drug Resistant Organisms: ESBL, MRSA Date of last positivie culture/infection: 09/03/20 ESBL Klebsiella; MRSA 08/27/16 MDRO Source:: ESBL-Urine; MRSA Coccyx Past Surgical History: Bowel Resection Additional Past Surgical History / Comment(s): 2010 AKA left, ileostomy 1967 r/t colon cancer Past Anesthesia/Blood Transfusion Reactions: No Reported Reaction Past Psychological History: No Psychological Hx Reported Smoking Status: Current every day smoker Past Alcohol Use History: None Reported Past Drug Use History: None Reported - Past Family History Mother Additional Family Medical History / Comment(s): ENLARGED HEART Father Family Medical History: Hypertension General Exam - General Exam Comments Initial Comments: General: Appears in no acute distress. HEAD: Normal with no signs of head trauma. EYES: PERRLA, EOMI, conjunctiva normal, no discharge. ENT: Hearing grossly intact, normal oropharynx. RESPIRATORY: Bilateral end expiratory wheezing. No increased work of breathing. Hypoxic on room air between 88-90%. C/V: Regular rate and rhythm. S1 and S2 auscultated, no edema, peripheral pulses 2+ and intact throughout ABD: Abdomen soft, nondistended. Patient is somewhat generalized tenderness to palpation. Patient has intact ostomy site with blood in the bag. Difficult to evaluate ostomy site we will remove it for better evaluation. No guarding. No peritoneal signs. No rebound tenderness. EXT: Left AKA SKIN: No rashes or lesions observed on exposed skin. NEURO: Alert and oriented 4. No focal deficits. Limitations: no limitations Course Vital Signs 01/28/22 01/28/22 01/28/22 03:46 03:55 05:44 Temperature 97.7 F Pulse Rate 86 83 Respiratory 18 18 Rate Blood Pressure 101/65 110/64 O2 Sat by Pulse 88 L 92 L 97 Oximetry 01/28/22 01/28/22 01/28/22 06:00 06:08 06:17 Temperature Pulse Rate 81 82 87 Respiratory 18 Rate Blood Pressure 110/66 O2 Sat by Pulse 95 Oximetry 01/28/22 01/28/22 01/28/22 07:00 07:05 08:00 Temperature Pulse Rate 113 H 76 84 Respiratory 16 18 16 Rate Blood Pressure 108/68 107/72 104/67 O2 Sat by Pulse 95 96 94 L Oximetry 01/28/22 01/28/22 01/28/22 08:01 08:03 08:09 Temperature Pulse Rate 82 89 Respiratory 18 18 Rate Blood Pressure O2 Sat by Pulse 92 L Oximetry 01/28/22 01/28/22 01/28/22 11:00 11:38 11:46 Temperature Pulse Rate 90 87 82 Respiratory 15 18 18 Rate Blood Pressure 104/58 O2 Sat by Pulse 98 Oximetry 01/28/22 01/28/22 01/28/22 12:00 13:00 14:00 Temperature Pulse Rate 82 84 86 Respiratory 16 19 14 Rate Blood Pressure 98/60 100/56 113/52 O2 Sat by Pulse 96 96 95 Oximetry 01/28/22 01/28/22 01/28/22 14:23 14:31 16:16 Temperature Pulse Rate 92 97 85 Respiratory 18 18 16 Rate Blood Pressure 107/56 O2 Sat by Pulse 99 Oximetry Medical Decision Making - Medical Decision Making Based on the patient's presentation and physical exam, the patient has a COPD exacerbation with bleeding from the ostomy site. We will better evaluate the ostomy site. We will obtain basic laboratory studies, including INR. She'll be sent directly treated for her COPD exacerbation with IV steroids and breathing treatments. She'll be given a small fluid bolus as well as IV Protonix. She was in agreement with this plan. Recommended we obtain CT abdomen and pelvis due to her discomfort in addition to the bleeding. She was also in agreement with this plan.She was hypoxic on room air and is typically not on oxygen at home. This is likely secondary to COPD exacerbation. Remainder the vital signs are within acceptable limits. EKG shows no signs of acute ischemia. Machine had a difficult time interpreting but appears unchanged from prior ekgs. Chest x-ray shows mild pulmonary vascular congestion, with comparison to prior chest xrays shows largely chronic changes. Laboratory studies are remarkable for hemoglobin within normal limits. INR is supratherapeutic greater than 10. Lactic acid is within normal limits. Covid is negative. Remainder of the labs are unremarkable. Creatinine is slightly above baseline to 1.5. Has a history of CK D. At this time, patient was administered KCentra due to the bleeding as well as 10 mg of vitamin K. We will recheck laboratory studies later today. We took down the patient's ostomy, and found that at the approximately 4 to 5 o'clock position on the ostomy site, there is point bleeding. No obvious injury. Likely a mucosal injury/superficial tear. Attempted electrocautery, with some improvement of the bleeding but it is still oozing. Patient was administered an additional localized 1cc lidocaine 1% with epinephrine. Direct pressure was held. Oozing appears to have stopped. I did speak with on-call surgery, Dr. Schmitt who was in agreement with this plan and agreement with the consult. He recommended reversal of the supratherapeutic INR which is already in process. CT abdomen and pelvis will be obtained at this time to rule out any other fin dings, our concern for GI bleed. Patient does have a generalized dull discomfort that has been ongoing for weeks. She was given a small fluid bolus and lower dose IV contrast will be given at this time due to CKD. Spoke with Dr. Montemayor was in agreement this plan and accepted the patient. Patient was admitted in stable condition. Ostomy site continues to have bleeding controlled. Patient does have a slightly elevated BNP for age, however I do believe that on comparison of chest x-rays which appears largely unchanged from prior chest x- rays with chronic congestion, and the active wheezing currently, her current mild hypoxia is likely secondary to a COPD exacerbation. We'll continue richi athing treatments and IV steroids. Repeat PT/INR is being obtained following Kcentra administration. CT imaging reviewed. - Lab Data Result diagrams: 01/28/22 11:46 01/28/22 04:04 Lab Results 01/28/22 01/28/22 01/28/22 Range/Units 04:04 04:04 04:04 WBC 9.0 (3.8-10.6) k/uL RBC 5.28 (3.80-5.40) m/uL Hgb 12.8 (11.4-16.0) gm/dL Hct 42.8 (34.0-46.0) % MCV 81.1 (80.0-100.0) fL MCH 24.3 L (25.0-35.0) pg MCHC 30.0 L (31.0-37.0) g/dL RDW 16.0 H (11.5-15.5) % Plt Count 177 (150-450) k/uL MPV 8.4 Neutrophils % 71 % Lymphocytes % 20 % Monocytes % 5 % Eosinophils % 1 % Basophils % 1 % Neutrophils # 6.4 (1.3-7.7) k/uL Lymphocytes # 1.8 (1.0-4.8) k/uL Monocytes # 0.5 (0-1.0) k/uL Eosinophils # 0.1 (0-0.7) k/uL Basophils # 0.1 (0-0.2) k/uL Hypochromasia Marked Anisocytosis Slight PT 127.4 H (9.0-12.0) sec INR >10.0 H* (<1.2) APTT 47.9 H (22.0-30.0) sec Sodium 136 L (137-145) mmol/L Potassium 4.3 (3.5-5.1) mmol/L Chloride 103 (98-107) mmol/L Carbon Dioxide 22 (22-30) mmol/L Anion Gap 11 mmol/L BUN 17 (7-17) mg/dL Creatinine 1.50 H (0.52-1.04) mg/dL Est GFR (CKD-EPI)AfAm 42 (>60 ml/min/1.73 sqM) Est GFR (CKD-EPI)NonAf 36 (>60 ml/min/1.73 sqM) Glucose 106 H (74-99) mg/dL Plasma Lactic Acid [place] (0.7-2.0) mmol/L Calcium 8.3 L (8.4-10.2) mg/dL Magnesium 1.7 (1.6-2.3) mg/dL Total Bilirubin 0.6 (0.2-1.3) mg/dL AST 29 (14-36) U/L ALT 14 (4-34) U/L Alkaline Phosphatase 87 (38-126) U/L NT-Pro-B Natriuret Pep pg/mL Total Protein 5.5 L (6.3-8.2) g/dL Albumin 2.9 L (3.5-5.0) g/dL Coronavirus (PCR) (Not Detectd) Blood Type Blood Type Confirm Blood Type Recheck Bld Type Recheck Status Antibody Screen Spec Expiration Date 01/28/22 01/28/22 01/28/22 Range/Units 04:04 04:04 04:17 WBC (3.8-10.6) k/uL RBC (3.80-5.40) m/uL Hgb (11.4-16.0) gm/dL Hct (34.0-46.0) % MCV (80.0-100.0) fL MCH (25.0-35.0) pg MCHC (31.0-37.0) g/dL RDW (11.5-15.5) % Plt Count (150-450) k/uL MPV Neutrophils % % Lymphocytes % % Monocytes % % Eosinophils % % Basophils % % Neutrophils # (1.3-7.7) k/uL Lymphocytes # (1.0-4.8) k/uL Monocytes # (0-1.0) k/uL Eosinophils # (0-0.7) k/uL Basophils # (0-0.2) k/uL Hypochromasia Anisocytosis PT (9.0-12.0) sec INR (<1.2) APTT (22.0-30.0) sec Sodium (137-145) mmol/L Potassium (3.5-5.1) mmol/L Chloride (98-107) mmol/L Carbon Dioxide (22-30) mmol/L Anion Gap mmol/L BUN (7-17) mg/dL Creatinine (0.52-1.04) mg/dL Est GFR (CKD-EPI)AfAm (>60 ml/min/1.73 sqM) Est GFR (CKD-EPI)NonAf (>60 ml/min/1.73 sqM) Glucose (74-99) mg/dL Plasma Lactic Acid [place] 1.5 (0.7-2.0) mmol/L Calcium (8.4-10.2) mg/dL Magnesium (1.6-2.3) mg/dL Total Bilirubin (0.2-1.3) mg/dL AST (14-36) U/L ALT (4-34) U/L Alkaline Phosphatase (38-126) U/L NT-Pro-B Natriuret Pep 1190 pg/mL Total Protein (6.3-8.2) g/dL Albumin (3.5-5.0) g/dL Coronavirus (PCR) (Not Detectd) Blood Type B Positive Blood Type Confirm Blood Type Recheck No Previous Record Bld Type Recheck Status CABO Indicated Antibody Screen NEGATIVE Spec Expiration Date 01/31/2022230301/28/22 01/28/22 01/28/22 Range/Units 04:17 06:33 06:42 WBC (3.8-10.6) k/uL RBC (3.80-5.40) m/uL Hgb (11.4-16.0) gm/dL Hct (34.0-46.0) % MCV (80.0-100.0) fL MCH (25.0-35.0) pg MCHC (31.0-37.0) g/dL RDW (11.5-15.5) % Plt Count (150-450) k/uL MPV Neutrophils % % Lymphocytes % % Monocytes % % Eosinophils % % Basophils % % Neutrophils # (1.3-7.7) k/uL Lymphocytes # (1.0-4.8) k/uL Monocytes # (0-1.0) k/uL Eosinophils # (0-0.7) k/uL Basophils # (0-0.2) k/uL Hypochromasia Anisocytosis PT 26.3 H (9.0-12.0) sec INR 2.6 H (<1.2) APTT (22.0-30.0) sec Sodium (137-145) mmol/L Potassium (3.5-5.1) mmol/L Chloride (98-107) mmol/L Carbon Dioxide (22-30) mmol/L Anion Gap mmol/L BUN (7-17) mg/dL Creatinine (0.52-1.04) mg/dL Est GFR (CKD-EPI)AfAm (>60 ml/min/1.73 sqM) Est GFR (CKD-EPI)NonAf (>60 ml/min/1.73 sqM) Glucose (74-99) mg/dL Plasma Lactic Acid [place] (0.7-2.0) mmol/L Calcium (8.4-10.2) mg/dL Magnesium (1.6-2.3) mg/dL Total Bilirubin (0.2-1.3) mg/dL AST (14-36) U/L ALT (4-34) U/L Alkaline Phosphatase (38-126) U/L NT-Pro-B Natriuret Pep pg/mL Total Protein (6.3-8.2) g/dL Albumin (3.5-5.0) g/dL Coronavirus (PCR) Not Detected (Not Detectd) Blood Type Blood Type Confirm B Positive Blood Type Recheck Bld Type Recheck Status Antibody Screen Spec Expiration Date - EKG Data -: EKG Interpreted by Me EKG Comments: 12-lead Electrocardiogram Interpretation Note EKG was reviewed and interpreted by myself. 12-lead ECG performed at 0440 is interpreted by me as revealing normal sinus rhythm at a rate of 88 beats per m inute. Lithia is normal. QRS duration is ~130 ms, QTc is 380 ms. There are chronic T wave inversions in the precordial leads seen on prior EKGs as well as in the inferior leads. No ST segment or T-wave abnormalities. Patient does have a widened QRS which is seen on prior EKGs from August 2020 as well as November 2020.. There were no acute ST or T wave abnormalities to suggest myocardial ischemia or injury. R wave progression across the precordium was satisfactory. By my interpretation this EKG is non-diagnostic for acute ischemia. When compared to prior EKGs from August 2020 in November 2020, there are no acute changes. Patient has a widened QRS of approximately 130 ms which the machine is not p icking up. Disposition Clinical Impression: COPD exacerbation, Supratherapeutic INR, Complication of ostomy Narrative: bleeding ostomy Disposition: ADMITTED IP TO THIS HOSP Condition: Stable Time of Disposition: 06:20
[2022-01-28 04:24] LABS: Anisocytosis Slight; Basophils # (A) 0.1 k/uL (0-0.2); Basophils % (A) 1 %; Eosinophils # (A) 0.1 k/uL (0-0.7); Eosinophils % (A) 1 %; HCT 42.8 % (34.0-46.0); HGB 12.8 gm/dL (11.4-16.0); Hypochromasia Marked; Lymphocytes # (A) 1.8 k/uL (1.0-4.8); Lymphocytes % (A) 20 %; MCH 24.3 pg (25.0-35.0); MCV 81.1 fL (80.0-100.0); Mean Platelet Volume 8.4; Monocytes # (A) 0.5 k/uL (0-1.0); Monocytes % (A) 5 %; Neutrophils # (A) 6.4 k/uL (1.3-7.7); Neutrophils % (A) 71 %; Platelet Count 177 k/uL (150-450); RBC 5.28 m/uL (3.80-5.40)
[2022-01-28 04:34] LABS: Albumin 2.9 g/dL (3.5-5.0); Calcium 8.3 mg/dL (8.4-10.2); Magnesium 1.7 mg/dL (1.6-2.3); Potassium 4.3 mmol/L (3.5-5.1); Total Bilirubin 0.6 mg/dL (0.2-1.3); Total Protein 5.5 g/dL (6.3-8.2)
[2022-01-28 04:39] LABS: Partial Thromboplastin Time 47.9 sec (22.0-30.0); Prothrombin Time 127.4 sec (9.0-12.0)
[2022-01-28 04:46] LABS: INR >10.0 (<1.2)
[2022-01-28] MEDS ORDERED: Kcentra PER PHARMACY 1 EACH MISC MISCELLANE PRN (04:47)
[2022-01-28] MEDS ORDERED: PHYTONADIONE 10 MG in SODIUM CHLORIDE 0.9% 50 ML IVPB STA (04:48)
[2022-01-28] MEDS: LIDOCAINE 2%-EPI 1:100,000 20 ML VIAL SUBMUCOSAL STA ×2 (05:00→05:27)
[2022-01-28] MEDS ORDERED: HUMAN PROTHROMBIN COMPLX IV ONE ×2 (05:00→05:30)
--- NOTE | 2022-01-28 05:02 | XR ---
EXAMINATION TYPE: XR chest 1V portable DATE OF EXAM: 01/28/2022 COMPARISON: 12/03/2020 HISTORY: Short of breath TECHNIQUE: FINDINGS: Heart appears enlarged. There is some pulmonary interstitial and airspace edema. No definit e pleural effusion. IMPRESSION: There is pulmonary edema which is the same or slightly worse than last exam and could be heart failure and interstitial pneumonia.
[2022-01-28] MEDS ORDERED: HUMAN PROTHROMBIN COMPLX 500 UNIT/16 ML VIAL IV ONE ×2 (05:26→05:30)
[2022-01-28] MEDS ORDERED: FUROSEMIDE 10 MG/ML 4 ML VIAL IV STA (06:19)
[2022-01-28] MEDS ORDERED: NALOXONE 0.4 MG/ML 1 ML VIAL IV PRN (07:00)
[2022-01-28 07:23] LABS: INR 2.6 (<1.2); Prothrombin Time 26.3 sec (9.0-12.0)
[2022-01-28] MEDS: IPRATROPIUM-ALBUTEROL 3 ML NEB INHALATION SCH ×4 (08:01→20:03)
[2022-01-28] MEDS ORDERED: CYCLOBENZAPRINE 10 MG TAB PO PRN (09:24)
[2022-01-28] MEDS ORDERED: IPRATROPIUM-ALBUTEROL 3 ML NEB INHALATION PRN (09:24)
[2022-01-28] MEDS ORDERED: MORPHINE SULFATE ER 15 MG TABLET PO PRN (09:24)
[2022-01-28] MEDS ORDERED: ERGOCALCIFEROL 1,250 MCG (50,000 IU) CAPSULE PO SCH (09:30)
--- NOTE | 2022-01-28 09:33 | CT ---
EXAMINATION TYPE: CT angio abdomen pelvis DATE OF EXAM: 01/28/2022 COMPARISON: NONE HISTORY: 66-year-old female with pain, GI Bleed Protocol TECHNIQUE: Contiguous axial scanning of the abdomen and pelvis before and after administration of 100 ml Isovue 300 IV contrast. Delayed images were also obtained. Coronal/sagittal MIP reconstructions performed. CT DLP: 6113.2 mGycm Automated exposure control for dose reduction was used. FINDINGS: There is severe anasarca change, more dependent with confluent edema along the left side and right bu ttock and posterior thigh regions. Abnormal lobulated soft tissue density right paramedian posterior upper buttock region at the level o f the lower sacrum measuring 9.8 cm craniocaudal by 8.4 cm wide by 3.5 cm thick (coronal image 117 an d axial image 68). Possible fat necrosis or soft tissue hematoma. Heart borderline enlarged without pericardial effusion. There is a small right pleural effusion. Unde rlying emphysema. Septal lines and mild groundglass changes in the lower lungs could reflect some deg ree of interstitial edema. There is mild to moderate abdominopelvic ascites. Liver measures 16.6 cm. Normal is from patient's la rge body habitus results in moderately artifact limiting detailed assessment of the solid abdominal v iscera. No obvious focal lesion is seen. There may be subtle contour nodularity of the liver. Correla te to exclude cirrhosis. Portal venous system is patent. No biliary ductal dilatation. Gallbladder collapsed. Adrenal glands, kidneys, and pancreas within normal limits. There are a couple hilar splenules. Mild splenomegaly at 14.4 cm measured on coronal series. Mild gastric fold thickening diffusely. No dilated small bowel or free air. Patient appears to be sta tus post colectomy with a right lower quadrant ileostomy. There is a parastomal hernia containing fat , ascites fluid, nonobstructed small bowel loops measuring up to 9.7 cm wide. No obvious mesenteric or retroperitoneal lymphadenopathy. Assessment limited by the large body habitu s and extensive anasarca change. Moderate atherosclerotic calcifications infrarenal abdominal aorta and iliac arteries. Bladder partially collapsed. Uterus appears to be present, small in size. There is bilateral adnexal nodularity measuring up to 4.9 cm on the left and 4.2 cm on the right. These represent the ovaries, u nable to exclude underlying cystic lesions. Ultrasound may be needed to further assess when patient a ble. Bones: Osteopenia. Moderate to advanced degenerative disc disease L5-S1. Hypertrophic facet arthropat hy throughout the lumbar spine. IMPRESSION: 1. CORRELATE FOR FLUID OVERLOAD STATE. THERE IS SEVERE BODY WALL ANASARCA AND MILD TO MODERATE ABDOMI NOPELVIC ASCITES. SLIGHT CONTOUR NODULARITY OF THE LIVER: CORRELATE TO EXCLUDE CIRRHOSIS. SPLENOMEGAL Y OF 14.4 CM. 2. SMALL RIGHT PLEURAL EFFUSION, UNDERLYING EMPHYSEMA WITH SEPTAL LINES AND MILD GROUNDGLASS CHANGES. CORRELATE TO EXCLUDE CHF WITH MILD INTERSTITIAL PULMONARY EDEMA. 3. STATUS POST COLECTOMY WITH RIGHT LOWER QUADRANT ILEOSTOMY. THERE IS A parastomal hernia containing fat, ascites fluid, and nonobstructed small bowel loops measuring nearly 10 cm wide. 4. Mild diffuse gastric fold thickening may partly relate to nondistention. Correlate to exclude ana ritis. 5. Lobulated soft tissue density right paramedian posterior upper buttock region measures 9.8 x 8.4 x 3.5 cm (coronal image 117). Unable to determine if this is density related to injury and fat necrosi s or hematoma. Neoplastic soft tissue considered less likely given some intermixed fat. 6. Bilateral adnexal nodularity measuring up to 4.9 cm likely related to the ovaries. Unable to exclu de underlying cystic lesions of the ovaries. Ultrasound recommended to better characterize after matt ent's condition has stabilized and when patient able.
[2022-01-28] MEDS: POTASSIUM CHLORIDE ER 20 MEQ TAB.ER PO SCH (09:56)
[2022-01-28] MEDS: FUROSEMIDE 80 MG TAB PO SCH (09:56)
[2022-01-28] MEDS: LEVOTHYROXINE 50 MCG TAB PO SCH (09:56)
[2022-01-28] MEDS: OXYBUTYNIN CHLORIDE 5 MG TAB PO SCH ×2 (09:57→16:15)
[2022-01-28] MEDS ORDERED: INSULIN DETEMIR (LEVEMIR) 100 UNIT/ML SYR SQ SCH (10:00)
[2022-01-28 10:10] LABS: Glucose,Whole Blood 143 mg/dL (70-110)
[2022-01-28] MEDS ORDERED: ACETAMINOPHEN TAB 325 MG TAB PO PRN (11:58)
[2022-01-28] MEDS ORDERED: ONDANSETRON 4 MG/2 ML VIAL IVP PRN (11:58)
[2022-01-28] MEDS ORDERED: CALCIUM CARBONATE 500 MG CHEWABLE PO PRN (11:58)
--- NOTE | 2022-01-28 12:03 | P.HPIM ---
History of Present Illness H&P Date: 01/28/22 Chief Complaint: Bleeding from colostomy This is a pleasant 66-year-old patient follows Dr. Tang. 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 long-standing smoker. Does use a wheelchair at baseline Around 7:30 PM last night patient noticed blood in the ileostomy bag. It started filling up. In about 1 hour patient had to empty of the back 4 times. Continue to Oozing after that and patient unable to put her back on. No pain. No nausea vomiting. No fever no chills. Presented to the ER. INR discovered to be greater than 10. In the ER patient received K centra and 10 mg of vitamin K. Patient has a INRs checked every month. And her family doctor adjust her Coumadin accordingly. Does feel a bit tired. No obvious dizziness. Currently patient has some greenish brown stool in the ileostomy bag. Review of systems: GEN.: Tired EYES: None HEENT: None NECK: None RESPIRATORY: Some shortness of breath wheezing CARDIOVASCULAR: None GASTROINTESTINAL: As above GENITOURINARY: None MUSCULOSKELETAL: Joint pains LYMPHATICS: None HEMATOLOGICAL: None PSYCHIATRY: None NEUROLOGICAL: Does use a wheelchair at baseline Past medical history to include: COPD, cor pulmonale, diabetes, hypertension, hyperlipidemia, osteoarthritis, chronic kidney disease, obstructive sleep apnea, left above-knee amputation due to previous DVT, ileostomy resulting from a previous bleeding polyp, secondary pulmonary hypertension Social history: Patient lives alone. Does use a wheelchair. smoking a pack a day for over 50 years. No alcohol. Recently down to half a pack a day Physical examination: VITAL SIGNS: 97.7, 86, 18, 101/65, 92% on 3 L GENERAL: BMI 41.6, reclining in bed, awake, tired. EYES: [Pupils equal. Conjunctiva pale l. HEENT: External appearance of nose and ears normal, oral cavity grossly normal. NECK: JVD not raised; masses not palpable. HEART: First and second heart sounds are normal; no edema. LUNGS: Respiratory rate increased; decreased breath sounds or wheezing. ABDOMEN: Soft, nontender, liver spleen not palpable, no masses palpable. Ileostomy bag with some green-brown stool. PSYCH: Alert and oriented x3; mood and affect normal. MUSCULOSKELETAL:No Clubbing/cyanosis;muscles-grossly intact NEUROLOGICAL: Cranial nerves grossly intact; no facial asymmetry, power and sensation grossly intact. LYMPHATICS: No lymph nodes palpable in the axilla and neck INVESTIGATIONS, reviewed in the clinical context: Repeat INR 2.6 January 28: WBC 9 hemoglobin 12.8 platelets 137 INR greater than 10 potassium 4.3 creatinine 1.5 COVID 19: Not detected EKG tracing personally reviewed by me-normal sinus rhythm. Possibly intraventricular block. Low voltage Chest x-ray film personally reviewed by me-portable. Prominent pulmonary artery Assessment and plan: -Coumadin toxicity with bleeding/GI Patient received kcentra and 10 mg vitamin K in the ER. INR from greater than 10 down to 2.6 -Acute GI bleed with bleeding to the ileostomy bag from Coumadin toxicity Surgery consulted. Clear liquid diet. -Chronic congestive heart failure exacerbation, from diastolic dysfunction EF 55-60%- Lasix - chronic cor pulmonale from COPD- Lasix -Secondary pulmonary hypertension moderate secondary to COPD Follow clinically -Acute COPD exacerbation in a current smoker *DuoNeb, nebulized Pulmicort, inhaled long-acting beta agonist, IV Solu-Medrol -Chronic DVT, chronically on Coumadin Follow INR -Hyperlipidemia Continue Lipitor -Primary osteoarthritis Use pain control as needed -Chronic pain syndrome Continue with MS Contin -Chronic nicotine dependence, cigarette smoker Nicotine patch Diabetes mellitus type 2, chronically on insulin Give basal Levemir 24 units every 12. Hold scheduled insulin. Sliding scale coverage Follow H&H. Surgery consulted. Hold Coumadin. Resume home medications. DuoNe b. IV and nebulized steroids. Accu-Cheks. Care was discussed with the patient. Questions answered. Past Medical History Past Medical History: Cancer, COPD, Diabetes Mellitus, Deep Vein Thrombosis (DVT), Hyperlipidemia, Osteoarthritis (OA), Pneumonia, Renal Disease, Sleep Apnea/CPAP/BIPAP Additional Past Medical History / Comment(s): anemia, dvt to left leg resulting in AKA, History of Any Multi-Drug Resistant Organisms: ESBL, MRSA Date of last positivie culture/infection: 09/03/20 ESBL Klebsiella; MRSA 08/27/16 MDRO Source:: ESBL-Urine; MRSA Coccyx Past Surgical History: Bowel Resection Additional Past Surgical History / Comment(s): 2010 AKA left, ileostomy 1967 r/t colon cancer Past Anesthesia/Blood Transfusion Reactions: No Reported Reaction Past Psychological History: No Psychological Hx Reported Smoking Status: Current every day smoker Past Alcohol Use History: None Reported Past Drug Use History: None Reported - Past Family History Mother Additional Family Medical History / Comment(s): ENLARGED HEART Father Family Medical History: Hypertension Medications and Allergies Home Medications Medication Instructions Recorded Confirmed Type Ferrous Sulfate [Iron (65 MG 325 mg PO DAILY 08/27/16 01/28/22 History Elemental)] Oxybutynin Chloride 10 mg PO DAILY 08/27/16 01/28/22 History Warfarin [Coumadin] 1 dose PO HS 08/27/16 01/28/22 History Atorvastatin [Lipitor] 10 mg PO HS 09/03/20 01/28/22 History Insulin Detemir [Levemir Flextouch 30 units SQ BID 09/03/20 01/28/22 History Pen] Pantoprazole Sodium [Protonix] 40 mg PO HS 09/03/20 01/28/22 History Cyclobenzaprine [Flexeril] 10 mg PO BID PRN 09/04/20 01/28/22 History HYDROcodone/APAP 10-325MG [[place] 1 tab PO Q4-6H PRN 09/04/20 01/28/22 History 10-325] Potassium Chloride [Klor-Con 20] 40 meq PO DAILY 09/04/20 01/28/22 History Cyclobenzaprine [Flexeril] 10 mg PO HS 12/03/20 01/28/22 History Furosemide [Lasix] 80 mg PO DAILY 12/03/20 01/28/22 History Insulin Aspart [NovoLOG Flexpen] 25 units SQ AC-TID 12/03/20 01/28/22 History Ipratropium-Albuterol Nebulize 3 ml INHALATION RT-TID PRN 12/03/20 01/28/22 History [Duoneb 0.5 mg-3 mg/3 ml Soln] Morphine Sulfate ER [Ms Contin] 15 mg PO HS 12/03/20 01/28/22 History Oxybutynin Chloride [Ditropan] 5 mg PO DAILY@1500 12/03/20 01/28/22 History metOLazone [Zaroxolyn] 5 mg PO DAILY PRN 12/03/20 01/28/22 History Ergocalciferol [Vitamin D2 (1250 1,250 mcg PO WE 01/28/22 01/28/22 History Mcg = 08986 Iu)] Levothyroxine Sodium [Synthroid] 50 mcg PO AC-BRKFST 01/28/22 01/28/22 History Morphine Sulfate ER [Ms Contin] 15 mg PO BID PRN 01/28/22 01/28/22 History Potassium Chloride [Klor-Con M20] 20 meq PO HS 01/28/22 01/28/22 History Allergies Allergy/AdvReac Type Severity Reaction Status Date / Time cephalexin [From Keflex] Allergy Rash/Hives Verified 01/28/22 08:26 ciprofloxacin [From Cipro] Allergy Unknown Verified 01/28/22 08:26 ibuprofen AdvReac Rash/Hives Verified 01/28/22 08:26 Physical Exam Vitals: Vital Signs Temp Pulse Resp BP Pulse Ox 01/28/22 08:09 89 18 01/28/22 08:03 92 L 01/28/22 08:01 82 18 01/28/22 08:00 84 16 104/67 94 L 01/28/22 07:05 76 18 107/72 96 01/28/22 07:00 113 H 16 108/68 95 01/28/22 06:17 87 01/28/22 06:08 82 01/28/22 06:00 81 18 110/66 95 01/28/22 05:44 83 18 110/64 97 01/28/22 03:55 92 L 01/28/22 03:46 97.7 F 86 18 101/65 88 L Intake and Output 01/27/22 01/28/22 01/28/22 22:59 06:59 14:59 Other: Weight 113.398 kg Results CBC & Chem 7: 01/28/22 04:04 01/28/22 04:04 Labs: Abnormal Lab Results - Last 24 Hours (Table) 01/28/22 01/28/22 01/28/22 Range/Units 04:04 04:04 04:04 MCH 24.3 L (25.0-35.0) pg MCHC 30.0 L (31.0-37.0) g/dL RDW 16.0 H (11.5-15.5) % PT 127.4 H (9.0-12.0) sec INR >10.0 H* (<1.2) APTT 47.9 H (22.0-30.0) sec Sodium 136 L (137-145) mmol/L Creatinine 1.50 H (0.52-1.04) mg/dL Glucose 106 H (74-99) mg/dL Calcium 8.3 L (8.4-10.2) mg/dL Total Protein 5.5 L (6.3-8.2) g/dL Albumin 2.9 L (3.5-5.0) g/dL 01/28/22 Range/Units 06:33 MCH (25.0-35.0) pg MCHC (31.0-37.0) g/dL RDW (11.5-15.5) % PT 26.3 H (9.0-12.0) sec INR 2.6 H (<1.2) APTT (22.0-30.0) sec Sodium (137-145) mmol/L Creatinine (0.52-1.04) mg/dL Glucose (74-99) mg/dL Calcium (8.4-10.2) mg/dL Total Protein (6.3-8.2) g/dL Albumin (3.5-5.0) g/dL
--- NOTE | 2022-01-28 12:05 | P.GSCN ---
History of Present Illness Consult date: 01/28/22 History of present illness: CHIEF COMPLAINT: Bleeding at her stoma HISTORY OF PRESENT ILLNESS: This is a 66-year-old female with a known history of colon cancer with bowel resection and colostomy during her childhood. Patient is also on Coumadin for a DVT in her leg. Her INR is greater than 10. Patient noted bleeding from her stoma yesterday around 7:30 in the evening. She tried applying pressure but bleeding continued. She reports that she filled 4 of the ileostomy bags full of blood. She could not get the bleeding stopped and therefore she came into the ER for further evaluation. On the ER physician did cauterized the bleeding area on the stump. Patient also received 10 mg of vitamin K and Kcentra. Patient reports that the bleeding has stopped. There is no further bleeding noted in her ostomy bag. No bleeding from the stoma. She denies any abdominal pain. Denies any nausea or vomiting. Patient seen and examined with Dr. Schmitt PAST MEDICAL HISTORY: See list. PAST SURGICAL HISTORY: See list. MEDICATIONS: See list. ALLERGIES: See list. SOCIAL HISTORY: No illicit drug use. REVIEW OF SYSTEMS: CONSTITUTIONAL: Denies fever or chills. HEENT: Denies blurred vision, vision changes, or eye pain. Denies hemoptysis CARDIOVASCULAR: Denies chest pain or pressure. RESPIRATORY: No shortness of breath. GASTROINTESTINAL: See HPI for pertinent findings HEMATOLOGIC: Denies bleeding disorders. GENITOURINARY: Denies any blood in urine or increased urinary frequency. SKIN: Denies pruitis. Denies rash. PHYSICAL EXAM: VITAL SIGNS: Reviewed GENERAL: Well-developed in no acute distress. HEENT: No sclera icterus. Extraocular movements grossly intact. Moist buccal mucosa. Head is atraumatic, normocephalic. No nasal drainage. ABDOMEN: Soft. Obese. Nondistended. Nontender. Ileostomy stoma on no evidence of bleeding. There is greenish brown stool noted ileostomy bag no blood noted. NEUROLOGIC: Alert and oriented. Cranial nerves II through XII grossly intact. LABORATORY DATA: WBC is 9 Hgb 12.8 platelets 177 INR greater than 10-2.6 Sodium 136 potassium 4.3 creatinine 1.50 Lactic acid 1.5 COVID-19 not detected IMAGING: Computed tomography scan abdomen and pelvis correlate for fluid overload state. There is severe body wall anasarca and mild to moderate ascites. Slight contour nodularity the liver." To cirrhosis. Splenomegaly of 14.4 cm. Small right pleural effusion. Status post colectomy with right lower quadrant ileostomy. There is a parastomal hernia containing fat, ascites fluid, and non-obstructed small bowel loops measuring nearly 10 cm wide. Mild diffuse gastric fluid thickening may relate to non-distention. Lobulated soft tissue density right paramedian posterior upper buttock region and is 9.8 x 8.4 x 3.5 cm. Unable to chart of this density is related to injury. Necrosis and hematoma. Bilateral adnexal nodularity measuring up to 4.9 cm likely related to ovaries ASSESSMENT: 1. Bleeding at stoma site has resolved 2. History of colon cancer as a child status post bowel resection with ileostomy 3. History of DVT on Coumadin 4. Coagulopathy PLAN: -Advance diet to regular -No surgical intervention planned -Continue supportive care Thank you for this consultation Physician Finish Machine Tender note has been reviewed by physician. Signing provider agrees with the documented findings, assessment, and plan of care. Past Medical History Past Medical History: Cancer, COPD, Diabetes Mellitus, Deep Vein Thrombosis (DVT), Hyperlipidemia, Osteoarthritis (OA), Pneumonia, Renal Disease, Sleep Apnea/CPAP/BIPAP Additional Past Medical History / Comment(s): anemia, dvt to left leg resulting in AKA, History of Any Multi-Drug Resistant Organisms: ESBL, MRSA Year Discovered:: 09/03/20 ESBL Klebsiella; MRSA 08/27/16 MDRO Source:: ESBL-Urine; MRSA Coccyx Past Surgical History: Bowel Resection Additional Past Surgical History / Comment(s): 2010 AKA left, ileostomy 1967 r/t colon cancer Past Anesthesia/Blood Transfusion Reactions: No Reported Reaction Past Psychological History: No Psychological Hx Reported Smoking Status: Current every day smoker Past Alcohol Use History: None Reported Past Drug Use History: None Reported - Past Family History Mother Additional Family Medical History / Comment(s): ENLARGED HEART Father Family Medical History: Hypertension Medications and Allergies Home Medications Medication Instructions Recorded Confirmed Type Ferrous Sulfate [Iron (65 MG 325 mg PO DAILY 08/27/16 01/28/22 History Elemental)] Oxybutynin Chloride 10 mg PO DAILY 08/27/16 01/28/22 History Warfarin [Coumadin] 1 dose PO HS 08/27/16 01/28/22 History Atorvastatin [Lipitor] 10 mg PO HS 09/03/20 01/28/22 History Insulin Detemir [Levemir Flextouch 30 units SQ BID 09/03/20 01/28/22 History Pen] Pantoprazole Sodium [Protonix] 40 mg PO HS 09/03/20 01/28/22 History Cyclobenzaprine [Flexeril] 10 mg PO BID PRN 09/04/20 01/28/22 History HYDROcodone/APAP 10-325MG [[place] 1 tab PO Q4-6H PRN 09/04/20 01/28/22 History 10-325] Potassium Chloride [Klor-Con 20] 40 meq PO DAILY 09/04/20 01/28/22 History Cyclobenzaprine [Flexeril] 10 mg PO HS 12/03/20 01/28/22 History Furosemide [Lasix] 80 mg PO DAILY 12/03/20 01/28/22 History Insulin Aspart [NovoLOG Flexpen] 25 units SQ AC-TID 12/03/20 01/28/22 History Ipratropium-Albuterol Nebulize 3 ml INHALATION RT-TID PRN 12/03/20 01/28/22 History [Duoneb 0.5 mg-3 mg/3 ml Soln] Morphine Sulfate ER [Ms Contin] 15 mg PO HS 12/03/20 01/28/22 History Oxybutynin Chloride [Ditropan] 5 mg PO DAILY@1500 12/03/20 01/28/22 History metOLazone [Zaroxolyn] 5 mg PO DAILY PRN 12/03/20 01/28/22 History Ergocalciferol [Vitamin D2 (1250 1,250 mcg PO WE 01/28/22 01/28/22 History Mcg = 52007 Iu)] Levothyroxine Sodium [Synthroid] 50 mcg PO AC-BRKFST 01/28/22 01/28/22 History Morphine Sulfate ER [Ms Contin] 15 mg PO BID PRN 01/28/22 01/28/22 History Potassium Chloride [Klor-Con M20] 20 meq PO HS 01/28/22 01/28/22 History Allergies Allergy/AdvReac Type Severity Reaction Status Date / Time cephalexin [From Keflex] Allergy Rash/Hives Verified 01/28/22 08:26 ciprofloxacin [From Cipro] Allergy Unknown Verified 01/28/22 08:26 ibuprofen AdvReac Rash/Hives Verified 01/28/22 08:26 Surgical - Exam Vital Signs Temp Pulse Resp BP Pulse Ox 97.7 F 86 18 101/65 88 L 01/28/22 03:46 01/28/22 03:46 01/28/22 03:46 01/28/22 03:46 01/28/22 03:46 Results - Labs 01/28/22 04:04 01/28/22 04:04 Abnormal Lab Results - Last 24 Hours (Table) 01/28/22 01/28/22 01/28/22 Range/Units 04:04 04:04 04:04 MCH 24.3 L (25.0-35.0) pg MCHC 30.0 L (31.0-37.0) g/dL RDW 16.0 H (11.5-15.5) % PT 127.4 H (9.0-12.0) sec INR >10.0 H* (<1.2) APTT 47.9 H (22.0-30.0) sec Sodium 136 L (137-145) mmol/L Creatinine 1.50 H (0.52-1.04) mg/dL Glucose 106 H (74-99) mg/dL Calcium 8.3 L (8.4-10.2) mg/dL Total Protein 5.5 L (6.3-8.2) g/dL Albumin 2.9 L (3.5-5.0) g/dL 01/28/22 Range/Units 06:33 MCH (25.0-35.0) pg MCHC (31.0-37.0) g/dL RDW (11.5-15.5) % PT 26.3 H (9.0-12.0) sec INR 2.6 H (<1.2) APTT (22.0-30.0) sec Sodium (137-145) mmol/L Creatinine (0.52-1.04) mg/dL Glucose (74-99) mg/dL Calcium (8.4-10.2) mg/dL Total Protein (6.3-8.2) g/dL Albumin (3.5-5.0) g/dL Diabetes panel 01/28/22 Range/Units 04:04 Sodium 136 L (137-145) mmol/L Potassium 4.3 (3.5-5.1) mmol/L Chloride 103 (98-107) mmol/L Carbon Dioxide 22 (22-30) mmol/L BUN 17 (7-17) mg/dL Creatinine 1.50 H (0.52-1.04) mg/dL Glucose 106 H (74-99) mg/dL Calcium 8.3 L (8.4-10.2) mg/dL AST 29 (14-36) U/L ALT 14 (4-34) U/L Alkaline Phosphatase 87 (38-126) U/L Total Protein 5.5 L (6.3-8.2) g/dL Albumin 2.9 L (3.5-5.0) g/dL Calcium panel 01/28/22 Range/Units 04:04 Calcium 8.3 L (8.4-10.2) mg/dL Albumin 2.9 L (3.5-5.0) g/dL Pituitary panel 01/28/22 Range/Units 04:04 Sodium 136 L (137-145) mmol/L Potassium 4.3 (3.5-5.1) mmol/L Chloride 103 (98-107) mmol/L Carbon Dioxide 22 (22-30) mmol/L BUN 17 (7-17) mg/dL Creatinine 1.50 H (0.52-1.04) mg/dL Glucose 106 H (74-99) mg/dL Calcium 8.3 L (8.4-10.2) mg/dL Adrenal panel 01/28/22 Range/Units 04:04 Sodium 136 L (137-145) mmol/L Potassium 4.3 (3.5-5.1) mmol/L Chloride 103 (98-107) mmol/L Carbon Dioxide 22 (22-30) mmol/L BUN 17 (7-17) mg/dL Creatinine 1.50 H (0.52-1.04) mg/dL Glucose 106 H (74-99) mg/dL Calcium 8.3 L (8.4-10.2) mg/dL Total Bilirubin 0.6 (0.2-1.3) mg/dL AST 29 (14-36) U/L ALT 14 (4-34) U/L Alkaline Phosphatase 87 (38-126) U/L Total Protein 5.5 L (6.3-8.2) g/dL Albumin 2.9 L (3.5-5.0) g/dL
[2022-01-28] MEDS: BUDESONIDE 1 MG/2 ML NEBU INHALATION SCH ×2 (12:10→20:04)
[2022-01-28] MEDS: FORMOTEROL FUMARATE 20 MCG/2 ML NEBU INHALATION SCH ×2 (12:10→20:03)
[2022-01-28 12:13] LABS: Basophils % (A) 0 %; Eosinophils % (A) 0 %; HGB 12.4 gm/dL (11.4-16.0); Hypochromasia Marked; Lymphocytes # (A) 0.4 k/uL (1.0-4.8); Lymphocytes % (A) 6 %; MCH 24.3 pg (25.0-35.0); MCHC 29.5 g/dL (31.0-37.0); MCV 82.3 fL (80.0-100.0); Mean Platelet Volume 8.3; Monocytes # (A) 0.1 k/uL (0-1.0); Monocytes % (A) 2 %; Neutrophils # (A) 6.3 k/uL (1.3-7.7); Neutrophils % (A) 92 %; Platelet Count 153 k/uL (150-450); RDW 15.8 % (11.5-15.5); WBC 6.9 k/uL (3.8-10.6)
[2022-01-28 12:18] LABS: INR 2.2 (<1.2); Prothrombin Time 21.9 sec (9.0-12.0)
[2022-01-28] MEDS: methylPREDNISolone SOD SUCCI 40 MG/ML 1 ML VIAL IV SCH ×2 (13:00→21:08)
[2022-01-28] MEDS: NICOTINE 14MG/24HR PATCH TRANSDERM SCH (13:04)
[2022-01-28 19:45] LABS: Glucose,Whole Blood 207 mg/dL (70-110)
[2022-01-28] MEDS: MORPHINE SULFATE ER 15 MG TABLET PO SCH (21:07)
[2022-01-28] MEDS: CYCLOBENZAPRINE 10 MG TAB PO SCH (21:07)
[2022-01-28] MEDS: ATORVASTATIN 10 MG TAB PO SCH (21:07)
[2022-01-28] MEDS: PANTOPRAZOLE 40 MG TABLET PO SCH (21:08)
[2022-01-28] MEDS: INSULIN DETEMIR (LEVEMIR) 100 UNIT/ML SYR SQ SCH (21:08)
[2022-01-29] MEDS: IPRATROPIUM-ALBUTEROL 3 ML NEB INHALATION SCH ×7 (00:17→23:55)
[2022-01-29 05:57] LABS: Glucose,Whole Blood 176 mg/dL (70-110)
[2022-01-29] MEDS: INSULIN DETEMIR (LEVEMIR) 100 UNIT/ML SYR SQ SCH ×2 (06:33→20:28)
[2022-01-29] MEDS: LEVOTHYROXINE 50 MCG TAB PO SCH (06:33)
[2022-01-29] MEDS: INSULIN ASPART (NovoLOG) 100 UNIT/ML VIAL SQ SCH ×6 (06:33→20:28)
[2022-01-29 07:55] LABS: Anisocytosis Slight; Basophils % (A) 1 %; Eosinophils % (A) 0 %; HCT 39.8 % (34.0-46.0); HGB 11.2 gm/dL (11.4-16.0); Hypochromasia Marked; Lymphocytes # (A) 0.5 k/uL (1.0-4.8); Lymphocytes % (A) 7 %; MCH 23.3 pg (25.0-35.0); MCHC 28.2 g/dL (31.0-37.0); MCV 82.6 fL (80.0-100.0); Monocytes # (A) 0.2 k/uL (0-1.0); Monocytes % (A) 3 %; Neutrophils % (A) 89 %; Platelet Count 186 k/uL (150-450); RBC 4.82 m/uL (3.80-5.40); RDW 16.1 % (11.5-15.5); WBC 7.8 k/uL (3.8-10.6)
[2022-01-29] MEDS: FORMOTEROL FUMARATE 20 MCG/2 ML NEBU INHALATION SCH ×2 (07:59→19:32)
[2022-01-29] MEDS: BUDESONIDE 1 MG/2 ML NEBU INHALATION SCH ×2 (07:59→19:32)
[2022-01-29 08:13] LABS: Potassium 4.6 mmol/L (3.5-5.1)
[2022-01-29] MEDS: methylPREDNISolone SOD SUCCI 40 MG/ML 1 ML VIAL IV SCH ×2 (08:56→20:29)
[2022-01-29] MEDS: OXYBUTYNIN CHLORIDE 5 MG TAB PO SCH ×2 (08:57→12:54)
[2022-01-29] MEDS: POTASSIUM CHLORIDE ER 20 MEQ TAB.ER PO SCH (08:57)
[2022-01-29] MEDS: NICOTINE 14MG/24HR PATCH TRANSDERM SCH (08:57)
[2022-01-29] MEDS: FUROSEMIDE 80 MG TAB PO SCH (08:58)
[2022-01-29 11:34] LABS: Glucose,Whole Blood 199 mg/dL (70-110)
--- NOTE | 2022-01-29 12:03 | P.PN ---
Progress Note - Text Progress Note Date: 01/29/22 Chief Complaint: Bleeding from colostomy This is a pleasant 66-year-old patient follows Dr. Tang. 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 long-standing smoker. Does use a wheelchair at baseline Around 7:30 PM last night patient noticed blood in the ileostomy bag. It started filling up. In about 1 hour patient had to empty of the back 4 times. Continue to Oozing after that and patient unable to put her back on. No pain. No nausea vomiting. No fever no chills. Presented to the ER. INR discovered to be greater than 10. In the ER patient received K centra and 10 mg of vitamin K. Patient has a INRs checked every month. And her family doctor adjust her Coumadin accordingly. Does feel a bit tired. No obvious dizziness. Currently patient has some greenish brown stool in the ileostomy bag. 01/31/2022: Reclining in bed. Comfortable. Brown stool in the bag. We'll start the patient and simon brock. Discussed with the patient. Blood pressure running a bit on the lower site. Breathing better. Active Medications Acetaminophen (Acetaminophen Tab 325 Mg Tab) 650 mg PO Q6HR PRN PRN Reason: Mild Pain or Fever > 100.5 Albuterol/Ipratropium (Ipratropium-Albuterol 3 Ml Neb) 3 ml INHALATION RT-Q4H [facility] Last Admin: 01/29/22 10:55 Dose: 3 ml Albuterol/Ipratropium (Ipratropium-Albuterol 3 Ml Neb) 3 ml INHALATION RT-TID PRN PRN Reason: Shortness Of Breath Atorvastatin Calcium (Atorvastatin 10 Mg Tab) 10 mg PO HS [facility] Last Admin: 01/28/22 21:07 Dose: 10 mg Budesonide (Budesonide 1 Mg/2 Ml Nebu) 1 mg INHALATION RT-BID [facility] Last Admin: 01/29/22 07:59 Dose: 1 mg Calcium Carbonate/Glycine (Calcium Carbonate 500 Mg Chewable) 1,000 mg PO Q4HR PRN PRN Reason: Dyspepsia Cyclobenzaprine HCl (Cyclobenzaprine 10 Mg Tab) 10 mg PO BID PRN PRN Reason: Muscle Spasm Cyclobenzaprine HCl (Cyclobenzaprine 10 Mg Tab) 10 mg PO HS [facility] Last Admin: 01/28/22 21:07 Dose: 10 mg Ergocalciferol (Ergocalciferol 1,250 Mcg (50,000 Iu) Capsule) 1,250 mcg PO WE [facility] Last Admin: 01/28/22 09:57 Dose: Not Given Formoterol Fumarate (Formoterol Fumarate 20 Mcg/2 Ml Nebu) 20 mcg INHALATION RT-BID [facility] Last Admin: 01/29/22 07:59 Dose: 20 mcg Furosemide (Furosemide 80 Mg Tab) 80 mg PO DAILY [facility] Last Admin: 01/29/22 08:58 Dose: 80 mg Insulin Aspart (Insulin Aspart (Novolog) 100 Unit/Ml Vial) 0 unit SQ [facility]; Protocol Last Admin: 01/29/22 06:33 Dose: 2 unit Insulin Detemir (Insulin Detemir (Levemir) 100 Unit/Ml Syr) 24 unit SQ BID@0700,2100 [facility] Last Admin: 01/29/22 06:33 Dose: 24 unit Levothyroxine Sodium (Levothyroxine 50 Mcg Tab) 50 mcg PO AC-BRKFST [facility] Last Admin: 01/29/22 06:33 Dose: 50 mcg Methylprednisolone Sodium Succinate (Methylprednisolone Sod Succi 40 Mg/Ml 1 Ml Vial) 40 mg IV Q12HR [facility] Last Admin: 01/29/22 08:56 Dose: 40 mg Morphine Sulfate (Morphine Sulfate Er 15 Mg Tablet) 15 mg PO BID PRN; Protocol PRN Reason: Pain Morphine Sulfate (Morphine Sulfate Er 15 Mg Tablet) 15 mg PO HS [facility]; Protocol Last Admin: 01/28/22 21:07 Dose: 15 mg Naloxone HCl (Naloxone 0.4 Mg/Ml 1 Ml Vial) 0.2 mg IV Q2M PRN PRN Reason: Opioid Reversal Nicotine (Nicotine 14mg/24hr Patch) 1 patch TRANSDERM DAILY [facility] Last Admin: 01/29/22 08:57 Dose: Not Given Ondansetron HCl (Ondansetron 4 Mg/2 Ml Vial) 4 mg IVP Q8HR PRN PRN Reason: Nausea And Vomiting Oxybutynin Chloride (Oxybutynin Chloride 5 Mg Tab) 5 mg PO DAILY@1500 [facility] Last Admin: 01/28/22 16:15 Dose: 5 mg Oxybutynin Chloride (Oxybutynin Chloride 5 Mg Tab) 10 mg PO DAILY [facility] Last Admin: 01/29/22 08:57 Dose: 10 mg Pantoprazole Sodium (Pantoprazole 40 Mg Tablet) 40 mg PO HS [facility] Last Admin: 01/28/22 21:08 Dose: 40 mg Potassium Chloride (Potassium Chloride Er 20 Meq Tab.Er) 40 meq PO DAILY [facility] Last Admin: 01/29/22 08:57 Dose: 40 meq Rivaroxaban (Rivaroxaban 20 Mg Tab) 20 mg PO W/SUPPER [facility]; Protocol Past medical history to include: COPD, cor pulmonale, diabetes, hypertension, hyperlipidemia, osteoarthritis, chronic kidney disease, obstructive sleep apnea, left above-knee amputation due to previous DVT, ileostomy resulting from a previous bleeding polyp, secondary pulmonary hypertension Social history: Patient lives alone. Does use a wheelchair. smoking a pack a day for over 50 years. No alcohol. Recently down to half a pack a day Physical examination: VITAL SIGNS: 97.3, 88, 16, 86/57, GENERAL: reclining in bed, awake, comfortable EYES: [Pupils equal. Conjunctiva pale l. HEENT: External appearance of nose and ears normal, oral cavity grossly normal. NECK: JVD not raised; masses not palpable. HEART: First and second heart sounds are normal; no edema. LUNGS: Respiratory rate increased; decreased breath sounds, decreased wheezing. ABDOMEN: Soft, nontender, liver spleen not palpable, no masses palpable. Ileostomy bag with -brown stool. PSYCH: Alert and oriented x3; mood and affect normal. MUSCULOSKELETAL:No Clubbing/cyanosis;muscles-grossly intact NEUROLOGICAL: Cranial nerves grossly intact; no facial asymmetry, power and sensation grossly intact. LYMPHATICS: No lymph nodes palpable in the axilla and neck INVESTIGATIONS, reviewed in the clinical context: January 29: Hemoglobin 11.2 potassium 4.6 creatinine 1.31 Repeat INR 2.6 January 28: WBC 9 hemoglobin 12.8 platelets 137 INR greater than 10 potassium 4.3 creatinine 1.5 COVID 19: Not detected EKG tracing personally reviewed by me-normal sinus rhythm. Possibly intraventricular block. Low voltage Chest x-ray film personally reviewed by me-portable. Prominent pulmonary artery Assessment and plan: -Coumadin toxicity with bleeding/GI received kcentra and 10 mg vitamin K in the ER. INR from greater than 10 upon presentation -Acute GI bleed with bleeding to the ileostomy bag from Coumadin toxicity: Resolved Surgery consulted. Diet advanced -Chronic congestive heart failure exacerbation, from diastolic dysfunction EF 55-60%- Lasix - chronic cor pulmonale from COPD- Lasix -Secondary pulmonary hypertension moderate secondary to COPD Follow clinically -Acute COPD exacerbation in a current smoker *DuoNeb, nebulized Pulmicort, inhaled long-acting beta agonist, IV Solu-Medrol -Chronic DVT, chronically on Coumadin Follow INR -Hyperlipidemia Continue Lipitor -Primary osteoarthritis Use pain control as needed -Chronic pain syndrome Continue with MS Contin -Chronic nicotine dependence, cigarette smoker Nicotine patch Diabetes mellitus type 2, chronically on insulin Give basal Levemir 24 units every 12. 8 units NovoLog scheduled insulin, with meals. Sliding scale coverage *8 units NovoLog scheduled with meals. Start patient on xarelto 20 mg starting tonight. Check for coverage. Other medications to continue. Cut back Lasix to 40 mg day. Diet advanced
--- NOTE | 2022-01-29 13:29 | P.PN ---
Subjective Progress Note Date: 01/29/22 CHIEF COMPLAINT: Bleeding at stoma site HISTORY OF PRESENT ILLNESS: Patient has had no further bleeding at stoma site. Her ileostomy is functioning. Hemoglobin did go down from 12.4-11.2. Medicine service is trying to change the anticoagulation from Coumadin to Xarelto. Afebrile. Blood pressure 90/55 patient denies abdominal pain. She does report abdominal bloating at times. But this is not new. She denies any nausea or vomiting. Patient seen by Carlotta Domingo of the ostomy nurse and she did report some adhesions noted on the right lower aspect of the stoma. These findings were relayed to Dr. Monson. No intervention was recommended. Patient seen and examined with Dr. monson PHYSICAL EXAM: VITAL SIGNS: Reviewed. GENERAL: Well-developed in no acute distress. HEENT: No sclera icterus. Extraocular movements grossly intact. Moist buccal mucosa. Head is atraumatic, normocephalic. ABDOMEN: Soft. Nondistended. Nontender. Ileostomy stoma intact with no bleeding. Beefy red. Patient has no bleeding noted stool in the area repacked is greenish in color. No evidence of bleeding. NEUROLOGIC: Alert and oriented. Cranial nerves II through XII grossly intact. ASSESSMENT: 1. Bleeding at stoma site has resolved 2. History of colon cancer as a child status post bowel resection with ileostomy 3. History of DVT on Coumadin 4. Coagulopathy PLAN: -No surgical intervention planned -Continue supportive care -Continue regular diet Physician Bromination Equipment Operator note has been reviewed by physician. Signing provider agrees with the documented findings, assessment, and plan of care. Objective - Vital Signs Vital signs: Vital Signs Temp 97.9 F 01/29/22 12:00 Pulse 94 01/29/22 12:00 Resp 16 01/29/22 12:00 BP 90/55 01/29/22 12:00 Pulse Ox 98 01/29/22 12:00 FiO2 Intake & Output 01/28/22 01/29/22 01/29/22 18:59 06:59 18:59 Intake Total 478 Output Total 1999 750 0 Balance -1999 478 Weight 113.398 kg Intake: Oral 478 Output: Urine 1999 750 0 Stool 0 Urine/Stool Mix 0 Emesis 0 Oral Regurgitation 0 Other: Voiding Method External Catheter # Voids 0 # Bowel Movements 1 - Labs CBC & Chem 7: 01/29/22 07:15 01/29/22 07:15 Labs: Abnormal Lab Results - Last 24 Hours (Table) 01/28/22 01/29/22 01/29/22 Range/Units 19:43 05:54 07:15 Hgb 11.2 L (11.4-16.0) gm/dL MCH 23.3 L (25.0-35.0) pg MCHC 28.2 L (31.0-37.0) g/dL RDW 16.1 H (11.5-15.5) % Lymphocytes # 0.5 L (1.0-4.8) k/uL Sodium (137-145) mmol/L BUN (7-17) mg/dL Creatinine (0.52-1.04) mg/dL Glucose (74-99) mg/dL POC Glucose (mg/dL) 207 H 176 H (70-110) mg/dL Calcium (8.4-10.2) mg/dL 01/29/22 01/29/22 Range/Units 07:15 11:33 Hgb (11.4-16.0) gm/dL MCH (25.0-35.0) pg MCHC (31.0-37.0) g/dL RDW (11.5-15.5) % Lymphocytes # (1.0-4.8) k/uL Sodium 136 L (137-145) mmol/L BUN 18 H (7-17) mg/dL Creatinine 1.31 H (0.52-1.04) mg/dL Glucose 177 H (74-99) mg/dL POC Glucose (mg/dL) 199 H (70-110) mg/dL Calcium 8.0 L (8.4-10.2) mg/dL
[2022-01-29 16:56] LABS: Glucose,Whole Blood 209 mg/dL (70-110)
[2022-01-29] MEDS ORDERED: RIVAROXABAN 20 MG TAB PO SCH (17:30)
[2022-01-29 19:44] LABS: Glucose,Whole Blood 207 mg/dL (70-110)
[2022-01-29] MEDS: MORPHINE SULFATE ER 15 MG TABLET PO SCH (20:29)
[2022-01-29] MEDS: ATORVASTATIN 10 MG TAB PO SCH (20:29)
[2022-01-29] MEDS: CYCLOBENZAPRINE 10 MG TAB PO SCH (20:29)
[2022-01-29] MEDS: PANTOPRAZOLE 40 MG TABLET PO SCH (20:29)
[2022-01-30] MEDS: IPRATROPIUM-ALBUTEROL 3 ML NEB INHALATION SCH ×3 (04:21→11:33)
[2022-01-30 06:11] LABS: Glucose,Whole Blood 201 mg/dL (70-110)
[2022-01-30] MEDS: INSULIN DETEMIR (LEVEMIR) 100 UNIT/ML SYR SQ SCH (06:21)
[2022-01-30] MEDS: LEVOTHYROXINE 50 MCG TAB PO SCH (06:21)
[2022-01-30] MEDS: INSULIN ASPART (NovoLOG) 100 UNIT/ML VIAL SQ SCH ×4 (06:21→12:57)
[2022-01-30 06:25] VITALS: RESP 18
[2022-01-30 07:41] LABS: Basophils % (A) 0 %; Eosinophils % (A) 0 %; HCT 39.4 % (34.0-46.0); HGB 11.5 gm/dL (11.4-16.0); Hypochromasia Marked; Lymphocytes # (A) 0.7 k/uL (1.0-4.8); Lymphocytes % (A) 9 %; MCHC 29.2 g/dL (31.0-37.0); MCV 82.2 fL (80.0-100.0); Mean Platelet Volume 9.2; Monocytes # (A) 0.3 k/uL (0-1.0); Monocytes % (A) 4 %; Neutrophils # (A) 6.8 k/uL (1.3-7.7); Neutrophils % (A) 86 %; Platelet Count 160 k/uL (150-450); RDW 15.9 % (11.5-15.5); WBC 7.9 k/uL (3.8-10.6)
[2022-01-30] MEDS: FORMOTEROL FUMARATE 20 MCG/2 ML NEBU INHALATION SCH (07:54)
[2022-01-30] MEDS: BUDESONIDE 1 MG/2 ML NEBU INHALATION SCH (07:54)
[2022-01-30] MEDS: NICOTINE 14MG/24HR PATCH TRANSDERM SCH (08:50)
[2022-01-30] MEDS: POTASSIUM CHLORIDE ER 20 MEQ TAB.ER PO SCH (08:50)
[2022-01-30] MEDS: methylPREDNISolone SOD SUCCI 40 MG/ML 1 ML VIAL IV SCH (08:50)
[2022-01-30] MEDS: OXYBUTYNIN CHLORIDE 5 MG TAB PO SCH (08:50)
[2022-01-30] MEDS ORDERED: FUROSEMIDE 40 MG TAB PO SCH (09:00)
[2022-01-30 11:43] LABS: Glucose,Whole Blood 174 mg/dL (70-110)
--- NOTE | 2022-01-30 14:30 | P.PN ---
Subjective Progress Note Date: 01/30/22 CHIEF COMPLAINT: Bleeding at stoma site HISTORY OF PRESENT ILLNESS: Patient has had no further bleeding at stoma site. Her ileostomy is functioning. Hemoglobin is stable at 11.5. Medicine service has changed her anticoagulation from Coumadin to Xarelto. Patient has had no further bleeding. Afebrile. Patient anticipate discharge later today. Patient seen and examined with Dr. monson PHYSICAL EXAM: VITAL SIGNS: Reviewed. GENERAL: Well-developed in no acute distress. HEENT: No sclera icterus. Extraocular movements grossly intact. Moist buccal mucosa. Head is atraumatic, normocephalic. ABDOMEN: Soft. Nondistended. Nontender. Ileostomy stoma intact with no bleeding. Beefy red. Stool present in the bag NEUROLOGIC: Alert and oriented. Cranial nerves II through XII grossly intact. ASSESSMENT: 1. Bleeding at stoma site has resolved 2. History of colon cancer as a child status post bowel resection with ileostomy 3. History of DVT on Coumadin 4. Coagulopathy PLAN: -No surgical intervention planned -Continue supportive care -Continue regular diet Physician Director Of Compliance note has been reviewed by physician. Signing provider agrees with the documented findings, assessment, and plan of care. Objective - Vital Signs Vital signs: Vital Signs Temp 97.7 F 01/30/22 08:49 Pulse 93 01/30/22 11:46 Resp 18 01/30/22 08:49 BP 107/70 01/30/22 08:49 Pulse Ox 100 01/30/22 08:49 FiO2 Intake & Output 01/29/22 01/30/22 01/30/22 18:59 06:59 18:59 Intake Total 1678 485 Output Total 200 600 Balance 1478 -115 Intake: Oral 1678 485 Output: Urine 200 600 Stool 0 Urine/Stool Mix 0 Emesis 0 Oral Regurgitation 0 Other: Voiding Method External Catheter External Catheter # Voids 0 1 # Bowel Movements 1 1 1 - Labs CBC & Chem 7: 01/30/22 06:36 01/29/22 07:15 Labs: Abnormal Lab Results - Last 24 Hours (Table) 01/29/22 01/29/22 01/30/22 Range/Units 16:54 19:42 06:09 MCH (25.0-35.0) pg MCHC (31.0-37.0) g/dL RDW (11.5-15.5) % Lymphocytes # (1.0-4.8) k/uL POC Glucose (mg/dL) 209 H 207 H 201 H (70-110) mg/dL 01/30/22 01/30/22 Range/Units 06:36 11:41 MCH 24.0 L (25.0-35.0) pg MCHC 29.2 L (31.0-37.0) g/dL RDW 15.9 H (11.5-15.5) % Lymphocytes # 0.7 L (1.0-4.8) k/uL POC Glucose (mg/dL) 174 H (70-110) mg/dL
[2022-01-30 14:48] VITALS: BP 89/56; PULSE 87; TEMP 97.6
--- NOTE | 2022-01-30 18:08 | P.DS ---
Providers Date of admission: 01/28/22 07:00 Expected date of discharge: 01/30/22 Attending physician: Yasmany Montemayor Consults: 01/28/22 05:53 Consult Physician Routine Consulting Provider: Sander Schmitt Consult Reason/Comments: bleeding ostomy site Do you want consulting provider notified?: Already Contacted [facility]: Chief Complaint: Bleeding from colostomy This is a pleasant 66-year-old patient follows Dr. Tang. 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 long-standing smoker. Does use a wheelchair at baseline Around 7:30 PM last night patient noticed blood in the ileostomy bag. It started filling up. In about 1 hour patient had to empty of the back 4 times. Continue to Oozing after that and patient unable to put her back on. No pain. No nausea vomiting. No fever no chills. Presented to the ER. INR discovered to be greater than 10. In the ER patient received K centra and 10 mg of vitamin K. Patient has a INRs checked every month. And her family doctor adjust her Coumadin accordingly. Does feel a bit tired. No obvious dizziness. Currently patient has some greenish brown stool in the ileostomy bag. 01/29/2022: Reclining in bed. Comfortable. Brown stool in the bag. We'll start the patient and xarelto tonight. Discussed with the patient. Blood pressure running a bit on the lower site. Breathing better. 01/30/2022: Doing well. Tolerating xarelto. Co-pays 0. Care was discussed with the patient. Cleared by surgery. Counseled about smoking. Nicotine patch. 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 Does use a wheelchair. smoking a pack a day for over 50 years. No alcohol. Recently down to half a pack a day Physical examination: VITAL SIGNS: 97.6, 96, 18, 10 7 x 70, 97% room air GENERAL: Up in chair awake, comfortable EYES: [Pupils equal. Conjunctiva pale l. HEENT: External appearance of nose and ears normal, oral cavity grossly normal. NECK: JVD not raised; masses not palpable. HEART: First and second heart sounds are normal; no edema. LUNGS: Respiratory rate increased; decreased breath sounds, decreased wheezing. ABDOMEN: Soft, nontender, liver spleen not palpable, no masses palpable. Ileostomy bag with -brown stool. PSYCH: Alert and oriented x3; mood and affect normal. MUSCULOSKELETAL:No Clubbing/cyanosis;muscles-grossly intact INVESTIGATIONS, reviewed in the clinical context: January 30: Hemoglobin 11.5 January 29: Hemoglobin 11.2 potassium 4.6 creatinine 1.31 Repeat INR 2.6 January 28: WBC 9 hemoglobin 12.8 platelets 137 INR greater than 10 potassium 4.3 creatinine 1.5 COVID 19: Not detected EKG tracing personally reviewed by me-normal sinus rhythm. Possibly intraventricular block. Low voltage Chest x-ray film personally reviewed by me-portable. Prominent pulmonary artery Assessment and plan: -Coumadin toxicity with bleeding/GI received kcentra and 10 mg vitamin K in the ER. INR from greater than 10 upon presentation -Acute GI bleed with bleeding to the ileostomy bag from Coumadin toxicity: Resolved Seen by Dr. Schmitt. Diet advanced -Chronic congestive heart failure exacerbation, from diastolic dysfunction EF 55-60%- Lasix. Fluid restriction - chronic cor pulmonale from COPD- Lasix -Secondary pulmonary hypertension moderate secondary to COPD Follow clinically -Acute COPD exacerbation in a current smoker *DuoNeb, nebulized Pulmicort, inhaled long-acting beta agonist, IV Solu-Medrol DC on prednisone stable. Symbicort. -Chronic DVT, chronically on Coumadin No change to to xarelto -Hyperlipidemia Continue Lipitor -Primary osteoarthritis Use pain control as needed -Chronic pain syndrome Continue with MS Contin -Chronic nicotine dependence, cigarette smoker Nicotine patch Diabetes mellitus type 2, chronically on insulin Give basal Levemir 24 units every 12. 12 units NovoLog scheduled insulin, with meals. Sliding scale coverage Disposition: Home Plan - Discharge Summary Discharge Rx Participant: No New Discharge Prescriptions: New Nicotine 14Mg/24Hr Patch [Habitrol] 1 patch TRANSDERM DAILY #14 patch Budesonide/Formoterol Fumarate [Symbicort 160-4.5 Mcg Inhaler] 1 puff INHALATION BID #10.2 gm Rivaroxaban [Xarelto] 20 mg PO W/SUPPER #30 tab Continue Oxybutynin Chloride 10 mg PO DAILY Ferrous Sulfate [Iron (65 MG Elemental)] 325 mg PO DAILY Pantoprazole Sodium [Protonix] 40 mg PO HS HYDROcodone/APAP 10-325MG [Screven 10-325] 1 tab PO Q4-6H PRN PRN Reason: Pain Ipratropium-Albuterol Nebulize [Duoneb 0.5 mg-3 mg/3 ml Soln] 3 ml INHALATION RT-TID PRN PRN Reason: Shortness Of Breath Cyclobenzaprine [Flexeril] 10 mg PO HS Oxybutynin Chloride [Ditropan] 5 mg PO DAILY@1500 Morphine Sulfate ER [Ms Contin] 15 mg PO HS Morphine Sulfate ER [Ms Contin] 15 mg PO BID PRN PRN Reason: Pain Levothyroxine Sodium [Synthroid] 50 mcg PO AC-BRKFST Ergocalciferol [Vitamin D2 (1250 Mcg = 28567 Iu)] 1,250 mcg PO WE Atorvastatin [Lipitor] 10 mg PO HS Cyclobenzaprine [Flexeril] 10 mg PO BID PRN PRN Reason: Muscle Spasm Potassium Chloride [Klor-Con M20] 20 meq PO HS Changed Furosemide [Lasix] 40 mg PO DAILY #0 Insulin Detemir [Levemir Flextouch Pen] 24 units SQ BID #0 Insulin Aspart [NovoLOG Flexpen] 12 units SQ AC-TID #0 Discontinued Warfarin [Coumadin] 1 dose PO HS Potassium Chloride [Klor-Con 20] 40 meq PO DAILY metOLazone [Zaroxolyn] 5 mg PO DAILY PRN PRN Reason: Edema Discharge Medication List Ferrous Sulfate [Iron (65 MG Elemental)] 325 mg PO DAILY 08/27/16 [History] Oxybutynin Chloride 10 mg PO DAILY 08/27/16 [History] Atorvastatin [Lipitor] 10 mg PO HS 09/03/20 [History] Pantoprazole Sodium [Protonix] 40 mg PO HS 09/03/20 [History] Cyclobenzaprine [Flexeril] 10 mg PO BID PRN 09/04/20 [History] HYDROcodone/APAP 10-325MG [Screven 10-325] 1 tab PO Q4-6H PRN 09/04/20 [History] Cyclobenzaprine [Flexeril] 10 mg PO HS 12/03/20 [History] Ipratropium-Albuterol Nebulize [Duoneb 0.5 mg-3 mg/3 ml Soln] 3 ml INHALATION RT-TID PRN 12/03/20 [History] Morphine Sulfate ER [Ms Contin] 15 mg PO HS 12/03/20 [History] Oxybutynin Chloride [Ditropan] 5 mg PO DAILY@1500 12/03/20 [History] Ergocalciferol [Vitamin D2 (1250 Mcg = 08015 Iu)] 1,250 mcg PO WE 01/28/22 [History] Levothyroxine Sodium [Synthroid] 50 mcg PO AC-BRKFST 01/28/22 [History] Morphine Sulfate ER [Ms Contin] 15 mg PO BID PRN 01/28/22 [History] Potassium Chloride [Klor-Con M20] 20 meq PO HS 01/28/22 [History] Rivaroxaban [Xarelto] 20 mg PO W/SUPPER #30 tab 01/29/22 [Rx] Budesonide/Formoterol Fumarate [Symbicort 160-4.5 Mcg Inhaler] 1 puff INHALATION BID #10.2 gm 01/30/22 [Rx] Furosemide [Lasix] 40 mg PO DAILY #0 01/30/22 [Rx] Insulin Aspart [NovoLOG Flexpen] 12 units SQ AC-TID #0 01/30/22 [Rx] Insulin Detemir [Levemir Flextouch Pen] 24 units SQ BID #0 01/30/22 [Rx] Nicotine 14Mg/24Hr Patch [Habitrol] 1 patch TRANSDERM DAILY #14 patch 01/30/22 [Rx] Follow up Appointment(s)/Referral(s): Tariq Tang MD [Primary Care Provider] - 1-2 days [facility], [NON-STAFF] - Patient Instructions/Handouts: Gastrointestinal Bleeding (ED) Activity/Diet/Wound Care/Special Instructions: fluid restriction 1800 cc/day dc if ok with surgery Discharge Disposition: HOME SELF-CARE
--- NOTE | 2022-02-05 13:58 | CDI ---
Documentation Clarification Form Date: 02/05/2022 01:30:59 PM From: Tarsha Wong Phone: Admit Date: 01/28/2022 07:00:00 AM Patient Name: Rachel Enrique Visit Number: [id number] Discharge Date: 01/30/2022 02:32:00 PM ATTENTION: The Clinical Documentation Specialists (CDI) and [facility] Coding Staff appreciate your assistance in clarifying documentation. Please respond to the clarification below the line at the bottom and electronically sign. The CDI & [facility] Coding staff will review the response and follow-up if needed. Please note: Queries are made part of the Legal Health Record. If you have any questions, please contact the author of this message via ITS. Dr. Yasmany Montemayor Conflicting documentation has been found in the medical record. As attending physician, please provide clarification. Bleeding from colostomy per H&P Bleeding at stoma site has resolved Progress Note 01/29/22 Dr. Christa Schmitt GIB with bleeding to the ileostomy bag; Coumadin toxicity Progress Note 01/29 Dr. Christel Montemayor History/Risk Factors: 66yo F, Chronic DVT, Coumadin toxicity, GI bleed, ileostomy, ACDHF, chronic cor pulmonale, 2PHTN, AECOPD, smoker, HLD, OA, IDDMII Clinical Indicators: Blood in Ostomy Bag INR is supratherapeutic greater than 10. Treatment: ER physician cauterized the bleeding area on the stump. Patient also received 10 mg of vitamin K and Kcentra. Patient reports that the bleeding has stopped. There is no further bleeding noted in her ostomy bag. No bleeding from the stoma. Please clarify which diagnosis is most appropriate: [ ] Gastrointestinal hemorrhage [ ] Colostomy hemorrhage [ ] Other (please specify) [ ] Unable to determine (Template Last Revised: June 2020) See discharge summary. No need for change in documentation MTDD
== END 2022-01-30 14:32 | disposition home or self-care (01) | DRG 377 ==
LOC: EC 03:42 → 3SCARD 07:00
PROVIDERS: ADMIT Hospitalist; ATTEND Hospitalist
PROC: 30283B1 Transfusion of Nonautologous 4-Factor Prothrombin Complex Concentrate into Vein, Percutaneous Approach (ICD-10-PCS; principal; 2022-01-28)
DX: K92.2 Gastrointestinal hemorrhage, unspecified (principal); I50.33 Acute on chronic diastolic (congestive) heart failure; D68.9 Coagulation defect, unspecified; I13.0 Hypertensive heart and chronic kidney disease with heart failure and stage 1 through stage 4 chronic kidney disease, or unspecified chronic kidney disease; J44.1 Chronic obstructive pulmonary disease with (acute) exacerbation; I27.81 Cor pulmonale (chronic); I27.29 Other secondary pulmonary hypertension; E11.22 Type 2 diabetes mellitus with diabetic chronic kidney disease; N18.9 Chronic kidney disease, unspecified; Z89.612 Acquired absence of left leg above knee; G47.33 Obstructive sleep apnea (adult) (pediatric); E78.5 Hyperlipidemia, unspecified; F17.210 Nicotine dependence, cigarettes, uncomplicated; T45.515A Adverse effect of anticoagulants, initial encounter; I45.4 Nonspecific intraventricular block; M19.91 Primary osteoarthritis, unspecified site; R09.02 Hypoxemia; G89.4 Chronic pain syndrome; Z20.822 Contact with and (suspected) exposure to COVID-19; Z90.49 Acquired absence of other specified parts of digestive tract; Z85.038 Personal history of other malignant neoplasm of large intestine; Z28.310 Unvaccinated for COVID-19; Z86.14 Personal history of Methicillin resistant Staphylococcus aureus infection; Z86.718 Personal history of other venous thrombosis and embolism; Z86.010 Personal history of colon polyps; Z79.01 Long term (current) use of anticoagulants; Z79.4 Long term (current) use of insulin; Z79.890 Hormone replacement therapy; Z79.899 Other long term (current) drug therapy
CPT/HCPCS: 36415; 71045; 74174; 80048; 80053; 83605; 83735; 83880; 85025; 85610; 85730; 86850; 86900; 86901; 87635; 93005; 94640; 94760; 96361; 96365; 96375; 96376; 99285